=== PATIENT | male | born 1990 | race Caucasian/White ===

== ENCOUNTER 2018-04-05 12:26 | Emergency (ER) | payer OTHER, SELFPAY ==
[2018-04-05 12:28] VITALS: BP 143/87; PULSE 69; PULSE 74; RESP 15; RESP 18; TEMP 36.5; O2SAT 100; O2SAT 99; BMI 23.7
--- NOTE | 2018-04-05 12:36 | ED.RN ---
NO OLD EKG'S IN MUSE.
--- NOTE | 2018-04-05 12:38 | RAD_ITS ---
STUDY: X-RAY CHEST REASON FOR EXAM: Male, 28 years old. Single episode of sharp left-sided chest pain. TECHNIQUE: PA and lateral views of the chest. COMPARISON: Comparison is made with prior study dated January 22, 2004. FINDINGS: EKG electrodes are seen. The lungs are clear and expanded. Scattered calcified granulomas. There is no demonstrated pleural abnormality. Normal size heart. Normal mediastinum and sanjiv. Normal visualized pulmonary arteries. Normal visualized aortic arch and descending thoracic aorta. Normal visualized thoracic spine. Normal visualized ribs, clavicles, and shoulders. There is no demonstrated abnormality of the visualized soft tissue structures of the upper abdomen. RAD/Chest PA and Lateral IMPRESSION: Normal x-ray examination of the chest. Electronically Signed: Mike Montes De Oca MD at 13:31 EDT Tel [phone], Service support ,
--- NOTE | 2018-04-05 12:38 | EKG12_ITS ---
Test Reason : CP Blood Pressure : / mmHG Vent. Rate : 069 BPM Atrial Rate : 069 BPM P-R Int : 150 ms QRS Dur : 102 ms QT Int : 364 ms P-R-T Axes : 070 051 048 degrees QTc Int : 390 ms Normal sinus rhythm with sinus arrhythmia Incomplete right bundle branch block Borderline ECG Confirmed by ORLANDO SANDS, RADHA ([id number]), assistant production editor DWAYNE SANDERS ([id number]) on 04/12/2018 3:21:52 PM Referred By: SRINIVASAN
--- NOTE | 2018-04-05 12:51 | ED.DCSUM_ITS ---
- ER Visit Summary Date of Service: 04/05/18 Chief Complaint: Chest pain History of Present Illness: The patient is a 28 M who complains of left-sided chest pain. It started a couple of days ago but got worse yesterday. Is been continuous. It sharp in the left upper chest. Nothing makes it better or wor se. He denies dyspnea, nausea or vomiting. He denies any trauma. He has no DVT or PE risk factors. He has no cardiac risk factors. He takes no medications and is a non-smoker. He tried Tums without any relief. Physical Examination: Vital signs reviewed. HEENT exam unremarkable. Heart is regular rate and rhythm without murmurs. Lungs are clear to auscultation. His left upper chest is tender to palpation. Abdomen is soft and nontender. Extremities reveal no edema. Peripheral pulses are equal. Skin exam normal. Neurologic exam normal. Test Results: EKG is sinus rhythm with a rate of 69. No ST changes. Chest x- ray unremarkable Emergency Department Course and Treatment: Patient was given naproxen. I do not see any acute findings for his chest pain. It could be chest wall pain. He has no cardiac, DVT or PE risk factors. I do not feel he needs blood work for these. Will be treated with naproxen at home. He will follow-up with his primary care physician. Treatment Plan: [] Disposition: Discharge Impression: Chest wall pain This note was generated with [employer] dictation software. It may contain incorrect words, spelling, and punctuation that were not noted in review of the chart prior to signing ED Disposition - Plan for ED Patient: Chief Complaint: Chest Pain Referrals: NOT,DEFINED [NON-STAFF] -
--- NOTE | 2018-04-05 13:25 | ED.DEP ---
ED Disposition - Plan for ED Patient: Disposition: Home or Assisted Living Chief Complaint: Chest Pain Instructions: ED Chest Pain NonCardiac Prescriptions: Naproxen [Naprosyn] 500 mg PO BID PRN #20 tab Referrals: NOT,DEFINED [NON-STAFF] -
[2018-04-05] MEDS: Naproxen 500 MG Tablet PO (13:43)
[2018-04-05 13:48] VITALS: BP 131/94; PULSE 64; RESP 14; O2SAT 99
== END 2018-04-05 13:59 | disposition home or self-care (01) ==
PROVIDERS: Emergency Provider Emergency Medicine
DX: R07.89 Other chest pain (principal)
CPT/HCPCS: 71046; 93005; 99283; A4216

== ENCOUNTER 2022-06-12 17:23 | Emergency (ER) | payer OTHER, SELFPAY ==
[2022-06-12 17:24] VITALS: BP 141/103; PULSE 88; RESP 16; TEMP 36.3; O2SAT 98; BMI 27.9
--- NOTE | 2022-06-12 17:39 | CT_ITS ---
STUDY: CT BRAIN WITHOUT CONTRAST REASON FOR EXAM: Male, 32 years old. Technologist Notes Sudden onset of dizziness, hypertension. Headache Technologist Notes Sudden onset of dizziness, hypertension. TECHNIQUE: Transaxial CT imaging of the brain was performed without administration of intravenous contrast material. Individualized dose optimization techniques were used for this CT. COMPARISON: None FINDINGS: Normal calvarium. Normal soft tissues. Normal size ventricles and extra-axial spaces for the patient''s age. Normal white matter tracts of the cerebral hemispheres. Normal basal ganglia and thalami. Normal brainstem. Normal cerebellum. There is no intracranial hemorrhage. There are no findings of an acute ischemic infarction. There is sinus disease. ASPECTS 10 CT/Brain/Head without Contrast IMPRESSION: There are no acute intracranial findings. Electronically Signed: Leonard Cisneros MD at 18:19 EST ,
--- NOTE | 2022-06-12 17:39 | EKG12_ITS ---
Test Reason : CP Blood Pressure : / mmHG Vent. Rate : 085 BPM Atrial Rate : 085 BPM P-R Int : 164 ms QRS Dur : 102 ms QT Int : 348 ms P-R-T Axes : 050 -06 022 degrees QTc Int : 414 ms Normal sinus rhythm Incomplete right bundle branch block Minimal voltage criteria for LVH, may be normal variant ( R in aVL ) Borderline ECG Confirmed by CONNOR SANDS, FLORIAN ([id number]), script editor ASHLEY ZUNIGA ([id number]) on 06/17/2022 10:47:06 AM Referred By: Confirmed By:KAREEM RYAN MD
--- NOTE | 2022-06-12 17:41 | EDS_ITS ---
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 He states he worked out this morning and went running as he usually does not use the elliptical machine. He went out on a call, and began having headache. He had chest discomfort and tightness but it did not radiate to his back. He felt his heart was racing. He got checked out by the paramedics, and had elevated blood pressure of 172 systolic. He does not have a history of hypertension. He states his family history is positive for high blood pressure but no early coronary artery disease. No exacerbating or alleviating factors. No leg swelling. No nausea or vomiting. No diaphoresis. PFSH PFS Medical History no medical history Home Medications NK 06/12/22 [History Last Taken Unknown] Allergy/AdvReac Type Severity Reaction Status Date / Time No Known Allergies Allergy Verified 06/12/22 17:26 Surgical History no surgical history Social History Smoking Status: Never smoker ROS ROS ED ROS Narrative Constitutional: No fever, no chills. HEENT: No sore throat. No neck pain. No loss of vision. No rhinorrhea. Cardiovascular: Positive chest pain. Positive palpitations. No pedal edema. Respiratory: No cough, no shortness of breath. Abdominal: No abdominal pain. No nausea. No vomiting. Genitourinary: No dysuria. No hematuria. Musculoskeletal: No myalgias. No arthralgias. Neurologic: Positive headaches. No dizziness. No lightheadedness. Skin: No rash. No change in color. Psychiatric: No depression. No anxiety. EXAM Physical Exam Narrative Exam Narrative: Afebrile. Vital signs noted. HEENT: Normocephalic. Atraumatic. PERRL, EOMI. Neck soft and supple. No point tenderness or step off. Cardiovascular: Regular rate and rhythm. No murmurs, rubs, or gallops a ppreciated. Respiratory: No tachypnea. Lungs clear to auscultation bilaterally. Gastrointestinal: Abdomen soft, nontender, with normoactive bowel sounds. No rebound or guarding. Neurological: Awake. Alert. Oriented x3. Nonfocal, nonlateralizing. Skin: No rash. Normal color. No pallor. Musculoskeletal: No pedal edema. Full range of motion extremities. Const Vital Signs: 06/12/22 17:24 06/12/22 17:50 06/12/22 17:52 Temperature 97.3 F L Temperature Source Temporal Pulse Rate 88 81 Respiratory Rate 16 20 H Respiratory Effort Normal Non-Labored Blood Pressure 141/103 H 128/93 H Blood Pressure Mean 115 104 Pulse Ox 98 98 Oxygen Delivery Method Room Air Room Air 06/12/22 19:14 Temperature Temperature Source Pulse Rate 76 Respiratory Rate 14 Respiratory Effort Blood Pressure 135/102 H Blood Pressure Mean 113 Pulse Ox 98 Oxygen Delivery Method Room Air Heart Score History: Slightly/Non-Suspicious ECG: Normal Age: </= 45 years Risk Factors: No Risk Factors Score: 0 MDM MDM MDM Narrative Medical decision making narrative: Chest pain work-up was pursued. His blood pressure currently is 141/103. I will obtain a CT of the brain because of his headache and elevated blood pressure that was reported earlier today. CT of the brain shows no acute process. CBC is grossly normal with a normal white count of 7.3, hemoglobin slightly elevated at 16.6 with hematocrit 48.3. Normal platelet count of 273. D-dimer normal at 0.31. Electrolyte panel is grossly unremarkable. Initial high-sensitivity troponin is 11. Repeat 2 hours later is 8. I do feel that he has been ruled out for coronary artery disease/ACS by enzymes. He was describing more of a tightness in his chest and feeling of anxiety. His EKG was interpreted by myself which shows normal sinus rhythm at 85 bpm without ectopy or acute ST changes. No STEMI. Chest x-ray interpreted by myself shows no acute process. His blood pressure has come down to 135/102. He was told to keep a log of his blood pressures. 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 Regardless, at this point in time, he is feeling improved. I feel he can be discharged safely home with follow-up to her primary care provider. I stressed the importance of keeping an eye on his blood pressure and told him that he may need to be started on medications if hypertension is established with his primary care provider. Return instructions to the emergency department were reviewed. Disposition is discharged home in stable condition. Lab Data Attestation: I reviewed the patient's lab results. Labs: Laboratory Results - last 24 hr 06/12/22 06/12/22 06/12/22 17:50 17:50 17:50 WBC 7.3 RBC 5.39 Hgb 16.6 H Hct 48.3 MCV 89.6 MCH 30.8 MCHC 34.4 RDW Std Deviation 37.7 RDW Coeff of Barbara 11.7 Plt Count 273 MPV 9.8 Immature Gran % (Auto) 0.300 Neut % (Auto) 57.1 Lymph % (Auto) 35.3 [place] % (Auto) 5.8 Eos % (Auto) 0.7 Baso % (Auto) 0.8 Absolute Neuts (auto) 4.2 Absolute Lymphs (auto) 2.56 Nucleated RBC % 0 D-Dimer Quant (PE/DVT) 0.31 Sodium 139 Potassium 3.8 Chloride 104 Carbon Dioxide 29.0 Anion Gap 6 BUN 16 Creatinine 1.11 Estim Creat Clear Calc 98.65 Est GFR (MDRD) Af Amer 99 Est GFR (MDRD) Non-Af 81 BUN/Creatinine Ratio 14.4 Glucose 97 Calcium 9.4 Troponin I High Sens 11 06/12/22 19:55 WBC RBC Hgb Hct MCV MCH MCHC RDW Std Deviation RDW Coeff of Barbara Plt Count MPV Immature Gran % (Auto) Neut % (Auto) Lymph % (Auto) [place] % (Auto) Eos % (Auto) Baso % (Auto) Absolute Neuts (auto) Absolute Lymphs (auto) Nucleated RBC % D-Dimer Quant (PE/DVT) Sodium Potassium Chloride Carbon Dioxide Anion Gap BUN Creatinine Estim Creat Clear Calc Est GFR (MDRD) Af Amer Est GFR (MDRD) Non-Af BUN/Creatinine Ratio Glucose Calcium Troponin I High Sens 8 Radiography Diagnostic Testing: Clinical Impression(s) from Imaging Studies Brain CT 06/12/22 17:39 IMPRESSION: There are no acute intracranial findings. Electronically Signed: Leonard Cisneros MD at 18:19 EST , Chest X-Ray 06/12/22 18:04 IMPRESSION: There are no acute findings. Electronically Signed: Leonard Cisneros MD at 18:20 EST , Discharge Plan Triage Chief Complaint: Chest Pain ED Provider: Rex Ceballos Dx/Rx/DC Orders Clinical Impression: Blood pressure elevated without history of HTN, Chest tightness Instructions: ED Chest Pain, Uncertain Cause, ED Hypertension, To Be Confirmed Prescriptions: No Action NK Primary Care Provider: Care Physician,No Primary Referrals: Care Physician,No Primary [Primary Care Provider] - Activity Restrictions/Additional Instructions: Keep a log of your blood pressures. Follow-up with a primary care provider. Disposition Disposition: Home, Self Care
[2022-06-12 17:50] VITALS: BP 128/93; PULSE 81; RESP 20; O2SAT 98
[2022-06-12] MEDS: Aspirin 81 MG TAB.CHEW 324 MG PO (17:51)
[2022-06-12 18:03] LABS: Absolute Lymphocyte Count 2.56 X10^3/uL (0.83-4.51); Absolute Neutrophil Count 4.2 X10^3/uL (2.0-7.7); Basophil# 0.06 X10^3/uL; Basophil% 0.8 % (0-1); Eosinophil# 0.05 X10^3/uL; Eosinophils% 0.7 % (0-5); Hematocrit 48.3 % (40-54); Hemoglobin 16.6 g/dL (13.0-16.5); Lymphocyte # 2.56 X10^3/ul (0.83-4.51); Lymphocyte % 35.3 % (19-41); Mean Corp Hgb Conc 34.4 g/dL (32-36); Mean Corpuscular Hgb 30.8 pg (27.0-32.0); Mean Corpuscular Volume 89.6 fL (80-94); Mean Platelet Vol. 9.8 fl (6.2-12.0); Monocyte# 0.42 X10^3/uL; Monocyte% 5.8 % (0-10); NRBC Flagged by Analyzer 0 % (0-5); Neutrophil # 4.15 X10^3/uL (2.7-7.7); Neutrophil % 57.1 % (47-70); Platelet Count 273 K/mm3 (150-450); RBC Distribution Width CV 11.7 % (11.6-14.6); RBC Distribution Width SD 37.7 fl (35.1-43.9); Red Blood Count 5.39 M/mm3 (4.6-6.2); White Blood Count 7.3 K/mm3 (4.4-11.0)
--- NOTE | 2022-06-12 18:04 | RAD_ITS ---
STUDY: X-RAY CHEST REASON FOR EXAM: Male, 32 years old. chest pain Technologist Notes WORKING OUT THIS AM AND FELT FINE, WENT OUT ON A CALL FELT DIZZY, CHEST PAIN/TIGHTNESS, BP WAS HIGH PER SQUAD THAT WAS ON THE SEEN, FEELS SOB, HEADACHE, FEELS FORGETTFUL TECHNIQUE: XR Chest 1 View COMPARISON: 04.05.18 FINDINGS: Normal visualized aortic arch and descending thoracic aorta. Normal visualized thoracic spine. Normal visualized ribs, clavicles, and shoulders. There is no demonstrated pleural abnormality. Normal size heart. Normal mediastinum and sanjiv. Normal visualized pulmonary arteries. There is no demonstrated abnormality of the visualized soft tissue structures of the upper abdomen. RAD/Chest 1 View (Portable) IMPRESSION: There are no acute findings. Electronically Signed: Leonard Cisneros MD at 18:20 EST ,
[2022-06-12 18:17] LABS: D-Dimer Quantitative (DVT/PE) 0.31 FEU/ug/m (0.27-0.49)
[2022-06-12 18:26] LABS: Anion Gap 6 (5-15); BUN 16 mg/dL (7-18); BUN/Creat Ratio 14.4 RATIO (10-20); Calcium,Total 9.4 mg/dL (8.5-10.1); Chloride 104 mmol/L (98-107); Creatinine, Serum 1.11 mg/dL (0.70-1.30); EST Glomerular Filtration Rate 81 mL/min (>60); Est Glom Filt Rate - Afr Amer 99 mL/min (>60); Estimated Creatinine Clearance 98.65 ml/min; Glucose 97 mg/dL (74-106); Potassium 3.8 mmol/L (3.5-5.1); Sodium Level 139 mmol/L (136-145); Troponin-I HS (w/2H Reflex) 11 pg/mL (3.0-78.0)
--- NOTE | 2022-06-12 18:32 | CM.ED ---
Social Work Consult: No Primary Care Physician Referral source: Self referral due to above. This social work nurse met with patient in room. Introduced self and social work nurse role. Patient agreeable to speak with this social work nurse. This social work nurse broached topic of primary care physician. Patient confirms to not have a primary care physician. This social work nurse educating patient on value of having primary care physician, patient voiced understanding and agreeable to this social work nurse providing patient with list of in-network primary care physicians that are local to patient geographical region. Patient reports to have all other needs met in the community and denies concern on returning to the community. No further services requested or indicated. Isrrael CERON, YSABEL-S
[2022-06-12 19:14] VITALS: BP 135/102; PULSE 76; RESP 14; O2SAT 98
[2022-06-12 19:59] LABS: Reflex Troponin-HS? (from REC) Y
[2022-06-12 20:23] LABS: Troponin-I HS 8 pg/mL (3.0-78.0)
[2022-06-12 20:54] VITALS: BP 149/109; PULSE 80; RESP 19; O2SAT 98
== END 2022-06-12 21:00 | disposition home or self-care (01) ==
PROVIDERS: Emergency Provider Emergency Medicine; Visit Provider Emergency Medicine
DX: R07.9 Chest pain, unspecified (principal); R03.0 Elevated blood-pressure reading, without diagnosis of hypertension; F41.9 Anxiety disorder, unspecified; Z56.6 Other physical and mental strain related to work; R51.9 Headache, unspecified
CPT/HCPCS: 70450; 71045; 80048; 84484; 85025; 85379; 93005; 99285; J7030; A4216

== ENCOUNTER → 2022-08-04 | Outpatient (CLI) | payer OTHER, SELFPAY ==
--- NOTE | 2022-08-04 10:45 | ECHOD_ITS ---
Reason For Study: CHEST PAIN Procedure This was a 2D Doppler, Color Flow transthoracic echocardiogram. Exam performed in department. Left Ventricle Normal size and thickness. The left ventricular ejection fraction is 65 %. Right Ventricle Normal RV size. A moderator band is seen in the right ventricle. Normal systolic function. Atria The left and right atria are normal. Mitral Valve The mitral valve is structurally normal. No prolapse or stenosis seen. Tricuspid Valve Normal tricuspid valve. Aortic Valve Normal aortic valve. Pulmonic Valve The pulmonic valve is not well visualized. Great Vessels Normal sized aortic root. Pericardium/Pleural No pericardial effusion. MMode/2D Measurements & Calculations LVIDd: 4.4 cm IVSd: 1.1 cm Ao root diam: 3.1 cm LVIDs: 3.3 cm LVPWd: 1.0 cm RVDd: 3.8 cm FS: 25.5 % LAV(MOD-sp4): 26.6 ml LVAd ap4: 29.1 cm2 SV(MOD-sp4): 57.9 ml LVLd ap4: 7.7 cm EDV(MOD-sp4): 90.1 ml EDV(sp4-el): 94.1 ml LVAs ap4: 15.1 cm2 LVLs ap4: 6.1 cm ESV(MOD-sp4): 32.2 ml ESV(sp4-el): 32.1 ml EF(MOD-sp4): 64.3 % EF(sp4-el): 65.9 % SV(sp4-el): 62.0 ml LA A4 area: 12.0 cm2 LA dimension(2D): 3.3 cm RA A4 area: 15.2 cm2 Time Measurements MV dec time: 0.19 sec Doppler Measurements & Calculations MV E max guevara: 63.1 cm/sec Lat Peak E' Guevara: 16.0 cm/sec Med Peak E' Guevara: 8.8 cm/sec MV A max guevara: 63.1 cm/sec E/E' lat: 4.0 E/E' med: 7.2 MV E/A: 1.00 MV V2 max: 76.1 cm/sec Ao V2 max: 100.6 cm/sec MV max P.3 mmHg MV dec slope: 333.9 cm/sec2 Ao max P.1 mmHg MV V2 mean: 44.0 cm/sec Ao V2 mean: 69.0 cm/sec MV mean P.88 mmHg Ao mean P.2 mmHg MV V2 VTI: 26.1 cm Ao V2 VTI: 22.5 cm AV (velocity ratio): 0.83 LV V1 max: 88.8 cm/sec PA V2 max: 102.6 cm/sec LV V1 max P.2 mmHg PA V2 mean: 65.9 cm/sec LV V1 mean P.8 mmHg LV V1 mean: 61.9 cm/sec LV V1 VTI: 18.7 cm ECHO/Echo Complete Interpretation Summary The left ventricular ejection fraction is 65 %. Prominent moderator band in RV vs non-compaction. Recommend cardiac MR for furt her evaluation.. Ordering Physician: José Miguel Serrano Referring Physician: ALFRED ISABEL Performed By: Selina Stephens RCS
--- NOTE | 2022-08-06 15:41 | STRESSREP ---
Stress Test Report Date: 08/04/2022 Procedure: Exercise tolerance test Indications: Chest pain Consent: Per the patient Procedure: The patient exercised on a Jose protocol for 12 minutes and 30 seconds achieving a peak heart rate of 176 bpm (93% predicted maximal heart rate) with a peak blood pressure 190/98 mmHg and a peak MET capacity of approximately 15.3 MET's. The baseline ECG demonstrated normal sinus rhythm. The peak exercise ECG demonstrated no ischemic changes. There were no cardiac dysrhythmias pretest, during exercise, or recovery. The functional capacity was considered good. The patient had no complaints of chest discomfort during exercise or recovery. The examination was discontinued secondary to target heart rate being achieved. Impression: 1. Technically adequate (percent predicted maximal heart rate greater than 85%) exercise tolerance test 2. Peak exercise ECG with no ischemic changes. 3. There were no cardiac dysrhythmias during exercise or recovery This note was generated with [employer] software. It may contain incorrect words, spelling, and punctuation that were not noted in checking the note before signing.
== END | disposition home or self-care (01) ==
LOC: CVS 10:43
PROVIDERS: PCP Nurse Practitioner Family; Visit Provider Internal Medicine Cardiovascular Disease
DX: R07.9 Chest pain, unspecified (principal)
CPT/HCPCS: 93017; 93306

== ENCOUNTER 2023-07-04 10:07 | Emergency (ER) | payer OTHER, SELFPAY ==
[2023-07-04 10:08] VITALS: BP 153/120; PULSE 99; RESP 18; TEMP 36.6; O2SAT 98; BMI 27.8
--- NOTE | 2023-07-04 10:35 | EX.ED.DYSGE1 ---
HPI History of Present Illness Chief Complaint: Hypertension Informant: patient Narrative Narrative: Patient presents ED near syncopal episodes with mild chest tightness this morning prior to going to the gym. He checked his blood pressure 150s over 120s. He has had on and off symptoms over the past year he has been to multiple video production specialist, diagnosed with right ventricular noncompaction cardiomyopathy. He is on a beta-randa twice a day took it this morning. Denies recent cough. Denies vomiting diarrhea. No family history of sudden heart , father with coronary disease stating due to poor dietary habits. 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 Home Medications carvedilol 3.125 mg tablet 3.125 mg PO BID #180 tabs 03/24/23 [Rx Last Taken Unknown] Allergy/AdvReac Type Severity Reaction Status Date / Time No Known Allergies Allergy Verified 07/04/23 10:07 Family History Father Diabetes Hypertension Grandfather Diabetes Grandmother Hypertension Social History Smoking Status: Never smoker alcohol intake: current alcohol intake frequency: 0-2 drinks per day Alcohol type: beer substance use type: does not use caffeine: No EXAM Physical Exam Const Vital Signs: 07/04/23 10:08 07/04/23 12:00 Temperature 97.8 F Temperature Source Temporal Pulse Rate 99 79 Respiratory Rate 18 18 Blood Pressure 153/120 H 138/98 H Blood Pressure Mean 131 110 Pulse Ox 98 99 Oxygen Delivery Method Room Air Positive well nourished and well developed General Appearance ED: well developed and NAD HEENT Reports moist mucous membranes normocephalic and atraumatic Eyes PERRL, EOMs intact bilaterally and conjunctivae normal General Eye ED: Yes normal appearance of both eyes Neck no lymphadenopathy and supple General: Negative for tenderness Chest Wall Chest: Negative for tenderness Resp normal respiratory effort and normal air movement Effort and Inspection: symmetric chest movement; Negative for respiratory distress Cardio regular rate, regular rhythm and no murmurs Peripheral Pulses: pulses 2+ throughout GI normal to inspection, nondistended, normoactive bowel sounds and non-tender Palpation: Negative for guarding or rebound tenderness present Back/Spine no CVA tenderness and no thoracic nor lumbar tenderness Extremity normal to inspection General Extremety ED: Negative for edema or tenderness General Extremity: Negative for edema Neuro oriented x3 and no sensory deficits noted Sensorium / Orientation: awake and alert Skin no rashes or lesions noted and no wounds MDM MDM MDM Narrative Medical decision making narrative: Interventions / MDM: Differential diagnosis: Elevated blood pressure, atypical chest pain Diagnosis considered but do not suspect: ACS however EKG troponins are negative. My EKG interpretation: Sinus rate of 86, no ST changes, T wave inversion lead III nonspecific. Imaging independently reviewed and interpreted by myself: 2 view chest x-ray: No acute process. External documents reviewed: N/A Test considered but not ordered:N/A ED course: Patient chest tightness blood pressure elevated 153/120 on arrival. 140s over 110 during my evaluation. EKG nonspecific findings. Cardiac workup initiated, will monitor his blood pressure. 1225: Initial cardiac enzymes negative. Remains symptom-free. Blood pressure 138/98 in the room. 1325: Repeat troponin negative. Remains symptom-free. Blood pressure 141/101 on recheck. Patient will keep a log of his blood pressure In the morning at night.confirm he is on Coreg 3.125 mg twice daily. He states medications per his cardiology team. He will call them for discussion for adjustments of medications. He is reassured. All questions were answered. Re-evaluation: stable Disposition discussed with patient/family/significant other: Patient Case discussed with consulting clinician: N/A This note was generated with [employer] dictation software. It may contain incorrect words, spelling, and punctuation that were not noted in checking the note before signing. Lab Data Attestation: I reviewed the patient's lab results. Labs: Laboratory Results - last 24 hr 07/04/23 07/04/23 10:20 12:54 WBC 5.8 RBC 5.74 Hgb 18.2 H* Hct 51.5 MCV 89.7 MCH 31.7 MCHC 35.3 RDW Std Deviation 38.2 RDW Coeff of Barbara 11.8 Plt Count 282 MPV 10.0 Immature Gran % (Auto) 0.300 Neut % (Auto) 57.9 Lymph % (Auto) 32.8 [place] % (Auto) 7.4 Eos % (Auto) 0.9 Baso % (Auto) 0.7 Absolute Neuts (auto) 3.4 Absolute Lymphs (auto) 1.90 Nucleated RBC % 0 [address] Review May foll Sodium 140 Potassium 3.5 Chloride 105 Carbon Dioxide 29.0 Anion Gap 6 BUN 10 Creatinine 1.16 Estim Creat Clear Calc 90.58 Est GFR (MDRD) Af Amer 93 Est GFR (MDRD) Non-Af 77 BUN/Creatinine Ratio 8.6 L Glucose 110 H Calcium 9.1 Troponin I High Sens 9 6 Radiography Diagnostic Testing: Clinical Impression(s) from Imaging Studies Chest X-Ray 07/04/23 10:50 IMPRESSION: No acute thoracic pathology. Electronically Signed: Hoang Whatley MD at 11:05 EST , Discharge Plan Triage Chief Complaint: Hypertension ED Provider: Dino Doshi Dx/Rx/DC Orders Clinical Impression: Chest pain, Right ventricular myocardial noncompaction cardiomyopathy, Elevated blood pressure reading with diagnosis of hypertension Instructions: Blood Pressure Check Steps, ED Chest Pain, Uncertain Cause Prescriptions: No Action carvedilol 3.125 mg tablet 3.125 mg PO BID Qty: 180 2RF Rx Instructions: must administer with a meal/food Primary Care Provider: Angely Estrada NP Referrals: Angely Estrada NP, [employer] [Primary Care Provider] - 1 Week Activity Restrictions/Additional Instructions: Cardiac workup negative. Blood pressure 153/120 on arrival, prior to discharge 141/101. Continue your Coreg twice a day, keep a log of your blood pressure, discussed with your cardiology team for adjustments of your medications as needed. Disposition Disposition: Home, Self Care
--- NOTE | 2023-07-04 10:50 | RAD_ITS ---
STUDY: X-RAY CHEST REASON FOR EXAM: Male, 33 years old. Chest pain TECHNIQUE: Frontal and lateral views of the chest COMPARISON: 06/12/2022 FINDINGS: The lungs are clear. There are no pleural effusions. There is no pneumothorax. The heart is normal in size. The visualized osseous structures are within normal limits. RAD/Chest PA and Lateral IMPRESSION: No acute thoracic pathology. Electronically Signed: Hoang Whatley MD at 11:05 EST ,
[2023-07-04 10:53] LABS: Absolute Neutrophil Count 3.4 X10^3/uL (2.0-7.7); Basophil# 0.04 X10^3/uL; Basophil% 0.7 % (0-1); Eosinophil# 0.05 X10^3/uL; Eosinophils% 0.9 % (0-5); Hematocrit 51.5 % (40-54); Lymphocyte % 32.8 % (19-41); Mean Corp Hgb Conc 35.3 g/dL (32-36); Mean Corpuscular Hgb 31.7 pg (27.0-32.0); Mean Corpuscular Volume 89.7 fL (80-94); Monocyte# 0.43 X10^3/uL; Monocyte% 7.4 % (0-10); NRBC Flagged by Analyzer 0 % (0-5); Neutrophil # 3.36 X10^3/uL (2.7-7.7); Neutrophil % 57.9 % (47-70); Platelet Count 282 K/mm3 (150-450); RBC Distribution Width CV 11.8 % (11.6-14.6); RBC Distribution Width SD 38.2 fl (35.1-43.9); Red Blood Count 5.74 M/mm3 (4.6-6.2); White Blood Count 5.8 K/mm3 (4.4-11.0)
[2023-07-04 10:56] LABS: Hemoglobin 18.2 g/dL (13.0-16.5)
[2023-07-04 11:03] LABS: Anion Gap 6 (5-15); BUN 10 mg/dL (7-18); BUN/Creat Ratio 8.6 RATIO (10-20); Calcium,Total 9.1 mg/dL (8.5-10.1); Chloride 105 mmol/L (98-107); Creatinine, Serum 1.16 mg/dL (0.70-1.30); EST Glomerular Filtration Rate 77 mL/min (>60); Est Glom Filt Rate - Afr Amer 93 mL/min (>60); Estimated Creatinine Clearance 90.58 ml/min; Glucose 110 mg/dL (74-106); Potassium 3.5 mmol/L (3.5-5.1); Sodium Level 140 mmol/L (136-145); Troponin-I HS (w/2H Reflex) 9 pg/mL (3.0-78.0)
--- OUTSIDE RECORDS SUMMARY | 2023-07-04 11:07 | XMS RPT_ITS | CCD ---
Author Name Unknown Address [id number] [place] [address] Organization [facility] Care Team Providers Care Harnessmaker Apprentice Name Role Phone SHERRY HATCH Unavailable Unavailable SHERRY HATCH Unavailable Unavailable SHERRY HATCH Unavailable Unavailable Trill BONDERIZER OPERATOR.Alfred IBANEZ Primary Care Provider Trill BONDERIZER OPERATOR.Alfred IBANEZ Primary Care Provider Unavailable Primary Care Provider UnavailANIAT Faustin Attending Unavailable TRILL, ALFRED C Primary Care Unavailable TRILL, ALFRED C Attending Unavailable TRILL, ALFRED C Primary Care Unavailable JOSÉ MIGUEL MENEZES Referring Unavailable MAYCOL PETTY Referring Unavailable TRILL, ALFRED C Primary Care Unavailable TRILL, ALFRED C Attending Unavailable TRILL, ALFRED C Primary Care Unavailable TRILL, ALFRED C Referring Unavailable TRILL, ALFRED C Primary Care Unavailable TRILL, ALFRED C Referring Unavailable TRILL, ALFRED C Primary Care Unavailable TRILL, ALFRED C Referring Unavailable TRILL, ALFRED C Attending Unavailable TRILL, ALFRED C Primary Care Unavailable TRILL, ALFRED C Primary Care Unavailable TRILL, ALFRED C Attending Unavailable TRILL, ALFRED C Primary Care Unavailable TRILL, ALFRED C Referring Unavailable MAAME, ALFRED C Primary Care Unavailable MAYCOL PETTY Referring Unavailable MAAME, ALFRED C Primary Care Unavailable MAYCOL PETTY Attending Unavailable Medications Current Medications Medication Drug Class(es) Dates Sig (Normalized) Sig (Original) carbamide peroxide 65 mg/ml otic solution (1 source) Start: 10-06-2016 End: 03-18-2022 carbamide peroxide (DEBROX) 6.5 % otic solution Indications: Impacted cerumen of left ear Use 5 Drops in both ears twice daily. 1 Bottle 0 10/06/2016 03/18/2022 Discontinued (Patient chooses alternative therapy) Completed/Discontinued Medications Medication Drug Class(es) Dates Sig (Normalized) Sig (Original) bacitracin 0.5 unt/mg topical ointment (2 sources) Start: 03-03-2023 End: 03-03-2023 bacitracin ointment busPIRone hydrochloride 5 mg oral tablet (14 sources) Start: 06-19-2022 End: 12-16-2022 take 1 tablet by mouth three times daily busPIRone (BUSPAR) 5 mg tablet Indications: RADHA (generalized anxiety disorder) TAKE 1 TABLET BY MOUTH THREE TIMES A DAY 90 tablet 5 07/15/2022 Active Problems Active Problems Problem Classification Problem Date Documented Date Episodic/Chronic Anxiety disorders (19 sources) Generalized anxiety disorder; Translations: [Generalized anxiety disorder] Onset: 06-20-2022 Chronic Disorders of lipid metabolism (15 sources) Mixed hyperlipidemia; Translations: [Mixed hyperlipidemia] Onset: 07-22-2022 Chronic Essential hypertension (12 sources) Essential hypertension; Translations: [Essential (primary) hypertension] Onset: 06-20-2022 Chronic Headache; including migraine (1 source) Headache; Translations: [Headache, unspecified headache type] Episodic Headache; including migraine (1 source) Headache; including migraine; Translations: [Headache, unspecified headache type] Onset: 06-18-2022 Joint disorders and dislocations; trauma-related (16 sources) Chondromalacia of left patella; Translations: [Chondromalacia patellae, left knee] Onset: 07-30-2021 07-30-2021 Chronic Nutritional deficiencies (2 sources) Vitamin D deficiency; Translations: [Vitamin D deficiency, unspecified] Onset: 04-09-2023 04-09-2023 Chronic Open wounds of extremities (8 sources) Laceration of finger; Translations: [Laceration without foreign body of unspecified finger without damage to nail, initial encounter] Onset: 03-03-2023 03-03-2023 Episodic Other and ill-defined heart disease (1 source) Dysfunction of right cardiac ventricle; Translations: [Heart disease, unspecified] 04-09-2023 Chronic Other and ill-defined heart disease (1 source) Right ventricular systolic dysfunction; Translations: [Other ill-defined heart diseases] 04-10-2023 Chronic Other and ill-defined heart disease (2 sources) Heart disease, unspecified; Translations: [Right ventricular dysfunction] Onset: 04-09-2023 Chronic Jo-; endo-; and myocarditis; cardiomyopathy (except that caused by tuberculosis or sexually transmitted disease) (7 sources) Right ventricular myocardial noncompaction cardiomyopathy; Translations: [Cardiomyopathy in diseases classified elsewhere] Onset: 03-24-2023 03-24-2023 Chronic Residual codes; unclassified (1 source) Obstructive sleep apnea syndrome; Translations: [Obstructive sleep apnea (adult) (pediatric)] 04-09-2023 Chronic Residual codes; unclassified (1 source) Obstructive sleep apnea (adult) (pediatric); Translations: [FAN (obstructive sleep apnea)] Onset: 04-28-2023 Chronic Unclassified (1 source) cp and cardiomyopathy Onset: 02-26-2023 Viral infection (19 sources) Genital herpes simplex; Translations: [Herpesviral infection of urogenital system, unspecified] Onset: 12-26-2010 Chronic Past or Other Problems Problem Classification Problem Date Documented Da te Episodic/Chronic Administrative/social admission (2 sources) Encounter for pre-employment examination; Translations: [Encounter for pre-employment examination] Onset: 04-30-2016 Episodic Blindness and vision defects (20 sources) Myopia; Translations: [Myopia, unspecified eye] Onset: 03-18-2022 03-18-2022 Episodic Other circulatory disease (8 sources) Elevated blood-pressure reading without diagnosis of hypertension; Translations: [Elevated blood-pressure reading, without diagnosis of hypertension] Onset: 01-19-2023 01-19-2023 Episodic Other circulatory disease (1 source) Elevated blood-pressure reading, without diagnosis of hypertension; Translations: [Elevated blood pressure reading without diagnosis of hypertension] Onset: 01-20-2023 Episodic Results Test Name Value Interpretation Reference Range Facil ity Vital Signs Date Time Vital Sign Value Performing Clinician Chris gilbert 04-09-2023 07:55-0400 Diastolic blood pressure 93 mm[Hg] Maycol Petty DO Work Phone: [facility] 04-09-2023 07:55-0400 Heart rate 70 /min Maycol Petty DO Work Phone: [facility] 04-09-2023 07:55-0400 SaO2% (BldA) [Mass fraction] 99 % Maycol Petty DO Work Phone: [facility] 04-09-2023 07:55-0400 Systolic blood pressure 134 mm[Hg] Maycol Petty DO Work Phone: [facility] 04-09-2023 07:53-0400 Body height 175.3 cm Maycol Petty DO Work Phone: [facility] 04-09-2023 07:53-0400 Body weight 86.64 kg Maycol Petty DO Work Phone: [facility] 03-24-2023 10:00-0400 Diastolic blood pressure 84 mm[Hg] Alfred Estrada BONDERIZER OPERATOR.SURFACE SUPERVISOR Work Phone: [facility] 03-24-2023 10:00-0400 Systolic blood pressure 110 mm[Hg] Alfred Estrada BONDERIZER OPERATOR.SURFACE SUPERVISOR Work Phone: [facility] 03-24-2023 09:29-0400 Body height 177.2 cm Alfred Estrada BONDERIZER OPERATOR.SURFACE SUPERVISOR Work Phone: [facility] 03-24-2023 09:29-0400 Body temperature 97.81 [degF] Alfred Estrada BONDERIZER OPERATOR.SURFACE SUPERVISOR Work Phone: [facility] 03-24-2023 09:29-0400 Body weight 84.82 kg Alfred Trirusty BONDERIZER OPERATOR.SURFACE SUPERVISOR Work Phone: [facility] 03-24-2023 09:29-0400 Heart rate 72 /min Alfred Estrada BONDERIZER OPERATOR.SURFACE SUPERVISOR Work Phone: [facility] 03-24-2023 09:29-0400 SaO2% (BldA) [Mass fraction] 96 % Alfred Estrada BONDERIZER OPERATOR.SURFACE SUPERVISOR Work Phone: [facility] 03-03-2023 03:22-0400 Diastolic blood pressure 92 mm[Hg] Anita Hutson MD Work Phone: [facility] 03-03-2023 03:22-0400 Heart rate 87 /min Anita Hutson MD Work Phone: [facility] [employer] 03-03-2023 03:22-0400 Respiratory rate 16 /min Anita Hutson MD Work Phone: [facility] [employer] 03-03-2023 03:22-0400 SaO2% (BldA) [Mass fraction] 99 % Anita Hutson MD Work Phone: [facility] [employer] 03-03-2023 03:22-0400 Systolic blood pressure 140 mm[Hg] Anita Hutson MD Work Phone: [facility] [employer] 03-02-2023 23:30-0400 Body height 175.3 cm Anita Hutson MD Work Phone: [facility] [employer] 03-02-2023 23:30-0400 Body mass index (BMI) [Ratio] 28.06 kg/m2 Anita Hutson MD Work Phone: [facility] [employer] 03-02-2023 23:30-0400 Body temperature 98.2 [degF] Anita Hutson MD Work Phone: [facility] [employer] 03-02-2023 23:30-0400 Body weight 86.18 kg Anita Hutson MD Work Phone: [facility] 01-13-2023 12:55-0400 Body height 177.2 cm Alfred Estrada APRN.SURFACE SUPERVISOR Work Phone: [facility] 01-13-2023 12:55-0400 Body temperature 98.2 [degF] Alfred Trill BONDERIZER OPERATOR.SURFACE SUPERVISOR Work Phone: [facility] 01-13-2023 12:55-0400 Body weight 86.64 kg Alfred Trirusty BONDERIZER OPERATOR.SURFACE SUPERVISOR Work Phone: [facility] 01-13-2023 12:55-0400 Diastolic blood pressure 90 mm[Hg] Alfred Estrada BONDERIZER OPERATOR.SURFACE SUPERVISOR Work Phone: [facility] 01-13-2023 12:55-0400 Heart rate 72 /min Alfred Trill BONDERIZER OPERATOR.SURFACE SUPERVISOR Work Phone: [facility] 01-13-2023 12:55-0400 SaO2% (BldA) [Mass fraction] 96 % Alfred Trill BONDERIZER OPERATOR.SURFACE SUPERVISOR Work Phone: [facility] 01-13-2023 12:55-0400 Systolic blood pressure 118 mm[Hg] Alfred Trill BONDERIZER OPERATOR.SURFACE SUPERVISOR Work Phone: [facility] 07-16-2022 09:17-0500 Body height 177.2 cm Alfred Trill BONDERIZER OPERATOR.SURFACE SUPERVISOR Work Phone: [facility] 07-16-2022 09:17-0500 Body temperature 98.01 [degF] Alfred Trill BONDERIZER OPERATOR.SURFACE SUPERVISOR Work Phone: [facility] 07-16-2022 09:17-0500 Body weight 88.91 kg Alfred Trill BONDERIZER OPERATOR.SURFACE SUPERVISOR Work Phone: [facility] 07-16-2022 09:17-0500 Diastolic blood pressure 76 mm[Hg] Alfred Trill BONDERIZER OPERATOR.SURFACE SUPERVISOR Work Phone: [facility] 07-16-2022 09:17-0500 Heart rate 73 /min Alfred Trill BONDERIZER OPERATOR.SURFACE SUPERVISOR Work Phone: [facility] 07-16-2022 09:17-0500 SaO2% (BldA) [Mass fraction] 96 % Alfred Trill BONDERIZER OPERATOR.SURFACE SUPERVISOR Work Phone: [facility] 07-16-2022 09:17-0500 Systolic blood pressure 124 mm[Hg] Alfred Trill BONDERIZER OPERATOR.SURFACE SUPERVISOR Work Phone: [facility] 06-18-2022 14:56-0500 Diastolic blood pressure 92 mm[Hg] Alfred Trill BONDERIZER OPERATOR.SURFACE SUPERVISOR Work Phone: [facility] 06-18-2022 14:56-0500 Systolic blood pressure 128 mm[Hg] Alfred Trill BONDERIZER OPERATOR.SURFACE SUPERVISOR Work Phone: [facility] 06-18-2022 14:34-0500 Body height 177.2 cm Alfred Trill BONDERIZER OPERATOR.SURFACE SUPERVISOR Work Phone: [facility] 06-18-2022 14:34-0500 Body temperature 97.9 [degF] Alfred Trill BONDERIZER OPERATOR.SURFACE SUPERVISOR Work Phone: [facility] 06-18-2022 14:34-0500 Body weight 87.09 kg Alfred Trill BONDERIZER OPERATOR.SURFACE SUPERVISOR Work Phone: [facility] 06-18-2022 14:34-0500 Heart rate 87 /min Alfred Trill BONDERIZER OPERATOR.SURFACE SUPERVISOR Work Phone: [facility] 06-18-2022 14:34-0500 SaO2% (BldA) [Mass fraction] 97 % Alfred Trill BONDERIZER OPERATOR.SURFACE SUPERVISOR Work Phone: [facility] 03-18-2022 09:20-0400 Body height 177.2 cm Alfred Trill BONDERIZER OPERATOR.SURFACE SUPERVISOR Work Phone: [facility] 03-18-2022 09:20-0400 Body temperature 97.9 [degF] Alfred Trill BONDERIZER OPERATOR.SURFACE SUPERVISOR Work Phone: [facility] 03-18-2022 09:20-0400 Body weight 86.36 kg Alfred Trill BONDERIZER OPERATOR.SURFACE SUPERVISOR Work Phone: [facility] 03-18-2022 09:20-0400 Diastolic blood pressure 78 mm[Hg] Alfred Trill BONDERIZER OPERATOR.SURFACE SUPERVISOR Work Phone: [facility] 03-18-2022 09:20-0400 Heart rate 66 /min Alfred Trill BONDERIZER OPERATOR.SURFACE SUPERVISOR Work Phone: [facility] 03-18-2022 09:20-0400 Respiratory rate 16 /min Alfred Trill BONDERIZER OPERATOR.SURFACE SUPERVISOR Work Phone: [facility] 03-18-2022 09:20-0400 SaO2% (BldA) [Mass fraction] 99 % Alfred Estrada APRN.CNP Work Phone: [facility] 03-18-2022 09:20-0400 Systolic blood pressure 120 mm[Hg] Alfred Estrada APRN.CNP Work Phone: [facility] Encounters Encounter Date Encounter Type Care Provider Facility Start: 04-30-2023 Telephone encounter Maycol orantes DO Work Phone: Cardiology Procedures Date Procedure Procedure Detail Performing Clinician Start: 03-03-2023 Simple rpr scalp/neck/ax/genit/trunk 7.6-12.5cm Jose Jacques DO Work Phone: Start: 03-03-2023 End: 03-03-2023 Radex elbow complete minimum 3 views Jose Jacques DO Work Phone: Start: 03-18-2022 Adult depression screening assessment Alfred Estrada APRN.CNP Work Phone: Plan of Treatment Date Care Activity Detail Author Start: 02-17-2040 Zoster Vaccines (1 of 2) Zoste r Vaccines (1 of 2) [facility] Start: 03-03-2033 DTaP/Tdap/Td Vaccine s (9 - Td or Tdap) DTaP/Tdap/Td Vaccines (9 - Td or Tdap) [facility] Start: 03-03-2033 Urine microalbumin profile DTa P,Tdap,Td Vaccine (9 - Td or Tdap) [facility] Start: 10-16-2028 Urine microalbumin profile [facility] Start: 03-24-2024 Annual PCP Team Divorce Attorney mehnaz Disease Visit Annual PCP Team Chronic Disease Visit [facility] Start: 01-14-2024 ANNUAL PCP TEAM CONSTRUCTION PROJECT COORDINATOR MEHNAZ DISEASE VISIT ANNUAL PCP TEAM CHRONIC DISEASE VISIT [facility] Start: 01-14-2024 COVID-19 VACCINE (3 - Moderna series) COVID-19 VACCINE (3 - Moderna series) [facility] Immunizations Immunization Date Immunization Notes Care Provider Fa cility 03-03-2023 tetanus and diphther ia toxoids, adsorbed, preservative free, for adult use (5 Lf of tetanus toxoid and 2 Lf of diphtheria toxoid) Anita Hutson MD Work Phone: [facility] 06-02-2022 influenza, injectabl e, quadrivalent, preservative free Alfred Trill BONDERIZER OPERATOR.[facility] Work Phone: [facility] Work Phone: 06-02-2022 influenza virus vacc ine, unspecified formulation Anita Hutson MD Work Phone: [facility] 09-08-2021 Influenza, injectabl e, Madin Vee Canine Kidney, preservative free, quadrivalent Alfred Trill BONDERIZER OPERATOR.[facility] Work Phone: [facility] 02-23-2021 COVID-19 vaccine, fu ll dose (MODERNA) Alfred Trill BONDERIZER OPERATOR.SURFACE SUPERVISOR Work Phone: [facility] Work Phone: 01-17-2021 COVID-19 vaccine, fu ll dose (MODERNA) Alfred Trill BONDERIZER OPERATOR.[facility] Work Phone: [facility] Work Phone: 08-27-2020 influenza, seasonal, injectable Alfred Trill BONDERIZER OPERATOR.[facility] Work Phone: [facility] Work Phone: 08-24-2020 anthrax vaccine Alfred Tril l BONDERIZER OPERATOR.SURFACE SUPERVISOR Work Phone: [facility] Work Phone: 07-03-2020 measles, mumps and rubella virus vaccine Alfred Trill BONDERIZER OPERATOR.SURFACE SUPERVISOR Work Phone: [facility] Work Phone: 03-23-2020 anthrax vaccine Alfred Tril l BONDERIZER OPERATOR.SURFACE SUPERVISOR Work Phone: [facility] Work Phone: 03-23-2020 typhoid capsular polysaccharide vaccine Alfred Trill BONDERIZER OPERATOR.SURFACE SUPERVISOR Work Phone: [facility] Work Phone: 01-13-2020 anthrax vaccine Alfred Tril l BONDERIZER OPERATOR.SURFACE SUPERVISOR Work Phone: [facility] Work Phone: 05-07-2019 influenza, injectabl e, quadrivalent, preservative free Alfred Trill BONDERIZER OPERATOR.SURFACE SUPERVISOR Work Phone: [facility] Work Phone: 10-16-2018 tetanus and diphther ia toxoids, adsorbed, preservative free, for adult use (2 Lf of tetanus toxoid and 2 Lf of diphtheria toxoid) Alfred Trill BONDERIZER OPERATOR.[facility] Work Phone: [facility] Work Phone: 05-08-2018 influenza, injectabl e, quadrivalent, preservative free Alfred Trill BONDERIZER OPERATOR.[facility] Work Phone: [facility] Work Phone: 05-09-2017 influenza, injectabl e, quadrivalent, preservative free Alfred Trill BONDERIZER OPERATOR.[facility] Work Phone: [facility] Work Phone: 03-16-2016 influenza, seasonal, injectable, preservative free Alfred Trill BONDERIZER OPERATOR.[facility] Work Phone: [facility] Work Phone: 06-05-2015 influenza, seasonal, injectable Alfred Trill BONDERIZER OPERATOR.[facility] Work Phone: [facility] Work Phone: 05-03-2014 influenza, live, intranasal, quadrivalent Alfred Trill BONDERIZER OPERATOR.SURFACE SUPERVISOR Work Phone: [facility] Work Phone: 02-13-2014 typhoid capsular polysaccharide vaccine Alfred Trill BONDERIZER OPERATOR.[facility] Work Phone: [facility] Work Phone: 03-12-2013 influenza, seasonal, injectable Alfred Trill BONDERIZER OPERATOR.[facility] Work Phone: [facility] Work Phone: 03-20-2012 influenza, seasonal, injectable, preservative free Alfred Trill BONDERIZER OPERATOR.SURFACE SUPERVISOR Work Phone: [facility] Work Phone: 04-12-2011 influenza nasal, unspecified formulation Alfred Trill BONDERIZER OPERATOR.SURFACE SUPERVISOR Work Phone: [facility] Work Phone: 09-15-2009 novel influenza-H1N1 -09, injectable Alfred Trill BONDERIZER OPERATOR.SURFACE SUPERVISOR Work Phone: [facility] Work Phone: 04-19-2009 influenza virus vacc ine, live, attenuated, for intranasal use Alfred Trill BONDERIZER OPERATOR.[facility] Work Phone: [facility] Work Phone: 02-12-2009 hepatitis A vaccine, pediatric/adolescent dosage, 2 dose schedule Alfred Trill BONDERIZER OPERATOR.SURFACE SUPERVISOR Work Phone: [facility] Work Phone: 02-12-2009 hepatitis B vaccine, pediatric or pediatric/adolescent dosage Alfred Trill BONDERIZER OPERATOR.SURFACE SUPERVISOR Work Phone: [facility] Work Phone: 05-20-2008 anthrax vaccine Alfred Tril l BONDERIZER OPERATOR.SURFACE SUPERVISOR Work Phone: [facility] Work Phone: 05-20-2008 hepatitis B vaccine, adult dosage Alfred Trill BONDERIZER OPERATOR.SURFACE SUPERVISOR Work Phone: [facility] Work Phone: 05-20-2008 influenza virus vacc ine, live, attenuated, for intranasal use Alfred Trill BONDERIZER OPERATOR.SURFACE SUPERVISOR Work Phone: [facility] Work Phone: 05-20-2008 typhoid capsular polysaccharide vaccine Alfred Trill BONDERIZER OPERATOR.SURFACE SUPERVISOR Work Phone: [facility] Work Phone: 12-20-2007 hepatitis A vaccine, pediatric/adolescent dosage, 2 dose schedule Alfred Trill BONDERIZER OPERATOR.SURFACE SUPERVISOR Work Phone: [facility] Work Phone: 12-20-2007 hepatitis B vaccine, pediatric or pediatric/adolescent dosage Alfred Trill BONDERIZER OPERATOR.[facility] Work Phone: [facility] Work Phone: 12-20-2007 meningococcal polysaccharide (groups A, C, Y and W-135) diphtheria toxoid conjugate vaccine (MCV4P) Alfred Trill BONDERIZER OPERATOR.[facility] Work Phone: [facility] Work Phone: 12-20-2007 poliovirus vaccine, inactivated Alfred Trill BONDERIZER OPERATOR.[facility] Work Phone: [facility] Work Phone: 12-20-2007 tetanus toxoid, redu [place] diphtheria toxoid, and acellular pertussis vaccine, adsorbed Alfred Trill BONDERIZER OPERATOR.[facility] Work Phone: [facility] Work Phone: 03-17-2003 measles, mumps and rubella virus vaccine Alfred Trill BONDERIZER OPERATOR.[facility] Work Phone: [facility] Work Phone: 02-25-2003 diphtheria and tetan us toxoids, adsorbed for pediatric use Alfred Trill BONDERIZER OPERATOR.SURFACE SUPERVISOR Work Phone: [facility] Work Phone: 10-29-1991 diphtheria, tetanus toxoids and acellular pertussis vaccine Alfred Trill BONDERIZER OPERATOR.SURFACE SUPERVISOR Work Phone: [facility] Work Phone: 10-27-1991 trivalent poliovirus vaccine, live, oral Alfred Trill BONDERIZER OPERATOR.SURFACE SUPERVISOR Work Phone: [facility] Work Phone: 07-14-1991 haemophilus influenz ae type b vaccine, HbOC conjugate Alfred Trill BONDERIZER OPERATOR.SURFACE SUPERVISOR Work Phone: [facility] Work Phone: 07-14-1991 measles, mumps and rubella virus vaccine Alfred Trill BONDERIZER OPERATOR.SURFACE SUPERVISOR Work Phone: [facility] Work Phone: 01-27-1991 haemophilus influenz ae type b vaccine, HbOC conjugate Alfred Trill BONDERIZER OPERATOR.SURFACE SUPERVISOR Work Phone: [facility] Work Phone: 1990 diphtheria, tetanus toxoids and acellular pertussis vaccine Alfred Trill BONDERIZER OPERATOR.[facility] Work Phone: [facility] Work Phone: 1990 haemophilus influenz ae type b vaccine, HbOC conjugate Alfred Trill BONDERIZER OPERATOR.[facility] Work Phone: [facility] Work Phone: 1990 diphtheria, tetanus toxoids and acellular pertussis vaccine Alfred Trill BONDERIZER OPERATOR.[facility] Work Phone: [facility] Work Phone: 1990 haemophilus influenz ae type b vaccine, HbOC conjugate Alfred Trill BONDERIZER OPERATOR.[facility] Work Phone: [facility] Work Phone: 1990 trivalent poliovirus vaccine, live, oral Alfred Trill BONDERIZER OPERATOR.[facility] Work Phone: [facility] Work Phone: 1990 diphtheria, tetanus toxoids and acellular pertussis vaccine Alfred Trill BONDERIZER OPERATOR.[facility] Work Phone: [facility] Work Phone: 1990 trivalent poliovirus vaccine, live, oral Alfred Trill BONDERIZER OPERATOR.[facility] Work Phone: [facility] Work Phone: Payers Date Payer Category Payer Unknown [id number] 2021 Unknown [id number] Social History Date Type Detail Facility Start: 03-18-2022 Tobacco smoking status NHIS Never sm oked tobacco [facility] Start: 03-18-2022 Tobacco use and exposure Smoke less tobacco non-user [facility] Start: 03-18-2022 End: 04-09-2023 Alcohol intake Current drinker of alcohol (finding) [facility] Start: 03-18-2022 End: 01-13-2023 Alcohol intake [facility] Start: 03-03-2020 History SDOH Alcohol Frequency 2 [facility] Start: 03-03-2020 History SDOH Alcohol Std Drinks 1 [facility] Start: 03-18-2022 History SDOH Alcohol Comment rarely [facility] Start: 03-18-2022 Tobacco Comment [facility] smokes [facility] Start: 1990 Sex Assigned At Not on file C [facility] Start: 03-08-2022 End: 03-03-2023 Exposure to SARS-CoV-2 (event) Not sure [facility] Start: 03-03-2020 End: 01-13-2023 Alcohol Use Disorder Identification Test - Consumption [AUDIT-C] [facility] How often to you hav e a drink containing alcohol? Monthly or less [facility] How many standard dr inks containing alcohol do you have on a typical day? 1 or 2 [facility] How often do you hav e 6 or more drinks on 1 occasion? Less than monthly [facility] Adult Depression Scr eening Assessment 0 [facility] Tobacco smoking status [place] account executive smoking consumption unknown [facility] Start: 1990 Sex Assigned At Male S [facility] Start: 03-02-2023 Gender identity Identifies as male gender (finding) [facility] Clinical Notes 03-18-2022 to 04-30-2023 Telephone Encounter - Miryam Lara - 04/30/2023 11:31 AM EDTPatient Maycol Thomas DO - 04/08/2023 7:34 AM EDTTelephone Encounter - Francisco Antonio - 04/02/2023 3:07 PM EDT Note Date & Type Note Facility 04-30-2023 Miscellaneous Notes April 30, 2023 Name: Aly Bashir Patient Contact Number: [phone] (home) [phone] (cell) Date of last office visit: 04/09/2023 Reason For Call: [email or web address] called to inform Maycol Petty that Mr. Bashir was dined for his zio patch that was requested on 04-27-23. Please call [phone] if you would like to do a peer to peer. Or fax dispute to [phone]. Physician: Maycol Petty DO Patient was informed that non-urgent calls may be returned within the next three business days. Yes Miryam Lara documented in this encounter [facility] 04-27-2023 Note HNO ID: [id number] Author: Krishna Maldonado DO Service: ? Author Type: Physician Type: Progress Notes Filed: 04/29/2023 3:39 AM Note Text: Sleep Study Check-In Documentation Date: April 29, 2023 Name: Aly Bashir Patient was accompanied by Self. Location: [facility] Latex allergy: No Tape allergy: No Current medications were reviewed with the patient:Yes Sleep aid taken by patient for the sleep study: [place] of sleep aid: Not Applicable Procedure was explained to the patient and all questions were answered. PAP treatment discussed and shown to patient: Yes Knowledge Program (KP): KP was not completed in epic by patient and accepted Study type: Polysomnogram Adverse Event: No (If yes create a new abstract) Comments: Patient was advised to follow up with their ordering provider regarding test results Idania LIPSCOMB April 27, 2023 An order has been received for Polysomnogram (PSG) from Maycol Mak DO, A. Sleep Center Staff/Dry Cell Battery Assembler Staff Orders. Visit prep complete - Please refer to the sleep study order (under procedures tab) for protocol details and special instructions. The sleep study is scheduled for 05/03/2023. Insurance: [facility] / Plan: [place] [employer] INSURED / Product Type: PPO / Payer/Plan Subscr Sex Relation Sub. Ins. ID Effective Group Num 1. DM[employer]YAC[employer] - S* ALY BASHIR 1990 Male Self [id number] 07[birth year]21 [id number] [id number] April 27, 2023 Standing PSG Orders signed in the last 90 days None Future PSG Orders signed in the last 90 days Ordered Auth. provider POLYSOMNOGRAM (PSG) [[id number]] 04/09/23 Maycol Petty DO Assoc. diagnoses: Right ventricular dysfunction [I51.9], FAN (obstructive sleep apnea) [G47.33] Q: Indications - Select All That Apply: A: Obstructive sleep apnea Q: STOP-BANG conditions - Select All That Apply: A: GENDER = male A2: high blood PRESSURE Q: Comorbidities: A: Moderate/Severe Cardiac disease Q: Specify Cardiac Disease: A: Other: see comments Q: Is the patient non-ambulatory or will they be accompanied by a caregiver?: A: No Q: Current use of supplemental oxygen during sleep period?: A: No Q: Add supplemental oxygen if needed per sleep lab policy?: A: Yes Q: Is this a repeat Sleep Study?: A: No All Prior Sleep Studies (past 365 days) Some values may be hidden. Unless noted otherwise, only the newest values recorded on each date are displayed. Sleep Studies POLYSOMNOGRAM (PSG) Future Expected: Expires: 04/08/24 BMI Readings from Last 2 Encounters: 04/09/23 : 28.21 kg/m? 03/24/23 : 27.02 kg/m? 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 Indications for study: Moderate/Severe Cardiac disease Sleep study to be performed: Polysomnogram Special instructions: Target REM/supine sleep Add EtCO2 or Transcutaneous CO2 if available *HTN, 04/09/2023 Notes I rush like for you to have a sleep study to make sure you don't have sleep apnea which can lead to right heart issues. Braulio Cesar - Sleep Medicine Staff Note: I have read the above protocol, edited as needed, and agree to the plan. Krishna Maldonado DO 2:30 PM, 04/27/2023 Braulio Cesar [facility] 04-09-2023 Instructions Maycol Petty DO - 04/09/2023 9:21 AM EDT You may have something called isolated right ventricular noncompaction - I will verify and review your cardiac MRI with our cardiac MRI director. If this truly is noncompaction, you were born with this. I will start you on a baby aspirin once per day to make sure no blood clots develop in the nooks and cranies of the heart I also want you to wear a ZIO patch for 2 weeks to make sure you have no dangerous heart rhythms Your blood pressure today is perfect I still may put you back on a tiny dose of lisinopril I rush like for you to have a sleep study to make sure you don't have sleep apnea which can lead to right heart issues Lab today documented in this encounter [facility] 04-09-2023 Note HNO ID: [id number] Author: Cameron Hernandez DO Service: ? Author Type: Physician Type: Procedures Filed: 05/07/2023 8:28 AM Note Text: Patient Name: Aly Bashir : 1990 Ordering Provider: Maycol Petty Indication: E55.9 Vitamin D deficiency, unspecified Type of Monitor: Extended Monitoring-Zio Patch Enrollment Dates: 04/14/2023-04/28/2023 Predominant rhythm sinus. Rare PAC and PVC Cameron Hernandez DO [facility] 04-08-2023 Note HNO ID: [id number] Author: Maycol Petty DO Service: ? Author Type: Physician Type: Progress Notes Filed: 04/10/2023 11:56 AM Note Text: Heart and Vascular [facility] SECTION OF HEART FAILURE and CARDIAC TRANSPLANT MEDICINE OUTPATIENT VISIT DATE April 09, 2023 OUTPATIENT VISIT TYPE New Patient PRIMARY CARE PHYSICIAN: Alfred Estrada [address] [place] [id number] CHIEF COMPLAINT: Cardiology Evaluation NURSING INTAKE (Patient?s concerns and/or recent hospitalizations/ER visits): Aly Bashir is a 33 year old male from [place], [place] here for second opinion on RV function seen on MRI. PMHx includes HTN; right ventricular myocardial noncompaction cardiomyopathy; HLD. HF Nursing Assessment: Interim Hospitalizations and/or ER visits: Chest Pain: daily discomfort, rates it about 3-4/10. Feels like a pain/irritation. Doesn't happen when working out Has been going on for years. Skipping or irregular heartbeats: no Shortness of breath at rest: no Shortness of breath with activity: no Cough: no Waking up in the middle of the night gasping for air: no Lightheadedness or dizziness: no Feeling like you are going to pass out: no Actually passing out: no Poor energy level: no Unintentional weight gain: no Unintentional weight loss: no Swelling in your legs,feet, abdomen: no Filling up quickly when you eat: no HISTORY OF PRESENT ILLNESS: 33 yo male here for cardiology evaluation after he underwent cardiac MRI to inquire further about right ventricular changes and was told he has isolated right ventricular non compaction Occasional atypical chest pains but no symptoms - he works out on a daily basis with weight lifting and aerobic exercise with no issues 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 PAST MEDICAL HISTORY Diagnosis Date Attention deficit disorder without mention of hyperactivity medication as child COVID-19 01/2022 Mild illness Genital herpes 12/26/2010 Hypertension 06/2022 Mixed hyperlipidemia 07/2021 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 Tourette's disorder As a child PAST SURGICAL HISTORY Procedure Laterality Date NONE SOCIAL HISTORY Social History Tobacco Use Smoking status: Never Smokeless tobacco: Never Tobacco comments: mom smokes Vaping Use Vaping Use: Never used Substance Use Topics Alcohol use: Yes Alcohol/week: 6.0 standard drinks of alcohol Types: 6 Cans of Beer (12oz) per week Drug use: No FAMILY HISTORY Problem Relation Age of Onset No Known Problems Mother Diabetes Father Hypertension Father Hyperlipidemia Father Heart Failure Father Stroke Maternal Grandmother No Known Problems Maternal Grandfather Hypertension Paternal Grandmother Diabetes Paternal Grandfather No Known Problems Brother No Known Problems Brother ALLERGIES: ALLERGIES No Known Allergies CURRENT MEDICATIONS: carvedilol (COREG) 3.125 mg tablet Take 3.125 mg by mouth two times a day. valACYclovir (VALTREX) 1 gram Take 1 tablet by mouth once daily. busPIRone (BUSPAR) 5 mg tablet TAKE 1 TABLET BY MOUTH THREE TIMES A DAY REVIEW OF SYSTEMS: CONSTITUTION: Negative for: Weight loss or gain, Fever. Chills, Night sweats HEENT: Negative for: Hearing loss, Nosebleeds, Mouth sores, Trouble swallowing, Dry mouth RESPIRATORY: Negative for: Cough, Difficulty breathing GASTROINTESTINAL: Negative for: Melena, Diarrhea, Nausea, Abdominal distension, Early satiety MUSCULOSKELETAL: Negative for: Arthralgias, Myalgias NEUROLOGICAL: Negative for: Headaches, Dizziness SKIN: Negative for: Rash EYES: Negative for: Vision disturbance CARDIOVASCULAR: Positive for: Chest pain Negative for: Leg swelling, Arrhythmia and Pre-syncope GENITOURINARY: Negative for: Difficulty urinatiing PATIENT ENTERED DATA: No flowsheet data found. PHQ-9 03/18/2022 03/24/2023 Score 0 0 No flowsheet data found. PHYSICAL EXAMINATION: BP 134/93 (BP Site: Right Arm) Pulse 70 Ht 175.3 cm (5' 9 ) Wt 86.6 kg (191 lb) SpO2 99% BMI 28.21 kg/m? General: Well appearing, in no acute distress. Skin: No clubbing, no cyanosis. Eyes: Extra ocular movements intact Oropharynx: Teeth in good repair. Neck: No jugular venous distention, no carotid bruits, carotids have a normal upstroke, no palpable thyromegaly. Lungs: Clear to auscultation bilaterally, no wheezing or rhonchi. Heart: Regular rhythm, PMI not displaced, S1, S2 normal, no S3, no S4, no heaves, no rub and no murmur. Abdomen: Soft, nontender, bowel sounds normal, no palpable organomegaly, no bruits. Extremities: No peripheral edema . Grade 2/4 distal pulses bilaterally. Neuro: Oriented to person, place and time, alert, cooperative, gait coordinated. CARDIOVASCULAR MEDICINE TESTING: I have personally reviewed the Electrocardiog (more content not included)... [facility] 04-08-2023 History of Presen t illness Narrative Images from the original note were not included. Heart [facility] SECTION OF HEART FAILURE and CARDIAC TRANSPLANT MEDICINE OUTPATIENT VISIT DATE April 09, 2023 OUTPATIENT VISIT TYPE New Patient PRIMARY CARE PHYSICIAN: Alfred Estrada [address] [place] [id number] CHIEF COMPLAINT: Cardiology Evaluation NURSING INTAKE (Patient s concerns and/or recent hospitalizations/ER visits): Aly Bashir is a 33 year old male from [place], [place] here for second opinion on RV function seen on MRI. PMHx includes HTN; right ventricular myocardial noncompaction cardiomyopathy; HLD. HF Nursing Assessment: Interim Hospitalizations and/or ER visits: Chest Pain: daily discomfort, rates it about 3-4/10. Feels like a pain/irritation. Doesn't happen when working out Has been going on for years. Skipping or irregular heartbeats: no Shortness of breath at rest: no Shortness of breath with activity: no Cough: no Waking up in the middle of the night gasping for air: no Lightheadedness or dizziness: no Feeling like you are going to pass out: no Actually passing out: no Poor energy level: no Unintentional weight gain: no Unintentional weight loss: no Swelling in your legs,feet, abdomen: no Filling up quickly when you eat: no HISTORY OF PRESENT ILLNESS: 33 yo male here for cardiology evaluation after he underwent cardiac MRI to inquire further about right ventricular changes and was told he has isolated right ventricular non compaction Occasional atypical chest pains but no symptoms - he works out on a daily basis with weight lifting and aerobic exercise with no issues 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 PAST MEDICAL HISTORY Diagnosis Date Attention deficit disorder without mention of hyperactivity medication as child COVID-19 01/2022 Mild illness Genital herpes 12/26/2010 Hypertension 06/2022 Mixed hyperlipidemia 07/2021 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 Tourette's disorder As a child PAST SURGICAL HISTORY Procedure Laterality Date NONE SOCIAL HISTORY Social History Tobacco Use Smoking status: Never Smokeless tobacco: Never Tobacco comments: mom smokes Vaping Use Vaping Use: Never used Substance Use Topics Alcohol use: Yes Alcohol/week: 6.0 standard drinks of alcohol Types: 6 Cans of Beer (12oz) per week Drug use: No FAMILY HISTORY Problem Relation Age of Onset No Known Problems Mother Diabetes Father Hypertension Father Hyperlipidemia Father Heart Failure Father Stroke Maternal Grandmother No Known Problems Maternal Grandfather Hypertension Paternal Grandmother Diabetes Paternal Grandfather No Known Problems Brother No Known Problems Brother ALLERGIES: ALLERGIES No Known Allergies CURRENT MEDICATIONS: carvedilol (COREG) 3.125 mg tablet Take 3.125 mg by mouth two times a day. valACYclovir (VALTREX) 1 gram Take 1 tablet by mouth once daily. busPIRone (BUSPAR) 5 mg tablet TAKE 1 TABLET BY MOUTH THREE TIMES A DAY REVIEW OF SYSTEMS: CONSTITUTION: Negative for: Weight loss or gain, Fever. Chills, Night sweats HEENT: Negative for: Hearing loss, Nosebleeds, Mouth sores, Trouble swallowing, Dry mouth RESPIRATORY: Negative for: Cough, Difficulty breathing GASTROINTESTINAL: Negative for: Melena, Diarrhea, Nausea, Abdominal distension, Early satiety MUSCULOSKELETAL: Negative for: Arthralgias, Myalgias NEUROLOGICAL: Negative for: Headaches, Dizziness SKIN: Negative for: Rash EYES: Negative for: Vision disturbance CARDIOVASCULAR: Positive for: Chest pain Negative for: Leg swelling, Arrhythmia and Pre-syncope GENITOURINARY: Negative for: Difficulty urinatiing PATIENT ENTERED DATA: No flowsheet data found. PHQ-9 03/18/2022 03/24/2023 Score 0 0 No flowsheet data found. PHYSICAL EXAMINATION: BP 134/93 (BP Site: Right Arm) Pulse 70 Ht 175.3 cm (5' 9 ) Wt 86.6 kg (191 lb) SpO2 99% BMI 28.21 kg/m General: Well appearing, in no acute distress. Skin: No clubbing, no cyanosis. Eyes: Extra ocular movements intact Oropharynx: Teeth in good repair. Neck: No jugular venous distention, no carotid bruits, carotids have a normal upstroke, no palpable thyromegaly. Lungs: Clear to auscultation bilaterally, no wheezing or rhonchi. Heart: Regular rhythm, PMI not displaced, S1, S2 normal, no S3, no S4, no heaves, no rub and no murmur. Abdomen: Soft, nontender, bowel sounds normal, no palpable organomegaly, no bruits. Extremities: No peripheral edema . Grade 2/4 distal pulses bilaterally. Neuro: Oriented to person, place and time, alert, cooperative, gait coordinated. CARDIOVASCULAR MEDICINE TESTING: I have personally reviewed the Electrocardiogram, Chest X-ray, Laboratory Testing, Echocardiogram, and Cardiac MRI. Last EKG Result Conclusion EKG Collected: 06/18/2022 3:35 PM (Preliminary result) Impression: NORMAL SINUS RHYTHM MINIMAL VOLTAGE CRITERIA FOR LVH, MAY BE NORMAL VARIANT BORDERLINE ECG NO PREVIOUS ECGS AVAILABLE Last MRI Result Conclusion MRI CARDIAC VELOCITY FLOW MAP Collected: 02/26/2023 5:41 PM (Final result) Impression: IMPRESSION: - The left ventricle is normal in size (LV EDVi = 49 ml/m ). The left ventricular systolic function is low normal (LV EF = 50 %). - The right ventricle is normal in size (RV EDVi = 63 ml/m ). The right ventricular systolic function is moderately decreased (RV EF = 25 %). There is evidence of increased trabeculations involving the mid, distal right ventricle. Trabecular recesses are seen. Although there are no established criteria for isolated right ventricular noncompaction, the increased trabeculation within the right ventricle, along with the absence of right ventricular free wall aneurysms/dyskinesis/fibrofatty infiltration suggest a diagnosis of isolated right ventricular noncompaction. The study does not support a diagnosis of arrhythmogenic right ventricular cardiomyopathy. The overall increase in the right ventricular trabeculation is more in line with isolated right ventricular noncompaction, as opposed to an isolated prominent moderator band. - No thrombi are visualized within the right or left ventricular cavity. - Late gadolinium enhancement (LGE) sequences did not indicate any LGE involving either the left or the right ventricle. - Trivial to mild mitral regurgitation is seen. - The patient has not had a prior CC cardiac MR exam for comparison. * * * Final * * * RP [employer] Power Plant Engineer: AILEEN Transcribe Date/Time: Feb 26 2023 2:53P Dictated by : VI GARCIA MD This examination was interpreted and the report reviewed and electronically signed by: VI GARCIA MD on Feb 27 2023 10:36PM EST Stress Test 08/04/2022 Echo 08/04/2022 IMPRESSION: NYHA Functional Class: I Stage: B heart failure Target weight: current HTN ADD - history of adderall use Atypical chest pressure Prominent RV moderator band? PLAN AND RECOMMENDATIONS: You may have something called isolated right ventricular noncompaction - I will verify and review your cardiac MRI with our cardiac MRI team - this is exceedingly rare If this truly is noncompaction, you were born with this. I will start you on a baby aspirin once per day to make sure no blood clots develop in the nooks and cranies of the heart I also want you to wear a ZIO patch for 2 weeks to make sure you have no dangerous heart rhythms Your blood pressure today is perfect I still may put you back on a tiny dose of lisinopril I rush like for you to have a sleep study to make sure you don't have sleep apnea which can lead to right heart issues Lab today Orders Placed This Encounter POLYSOMNOGRAM (PSG) Standing Status: Future Standing Expiration Date: 04/08/2024 Scheduling Instructions: SLEEP STUDY SCHEDULING INSTRUCTIONS (IN LABORATORY SLEEP STUDY): If your sleep study has not been scheduled, please call to schedule. If you have been directed to call a specific location, please call the appropriate number: - [facility] or [facility] - [phone] or toll free at [phone] Thursday - Thursday: 8 am- 4:30 pm - [place] - [phone] - [place] - [phone] - [place] - [phone] - [facility] - [phone] On the night of your study please report to the designated [facility] at your scheduled appointment time. Only for patients at the [place] site, please call the lab upon arrival @ and one of our staff will come to lobby to greet you and escort you to your sleep room. After your study you will be free to leave the sleep laboratory at all sites, except the [facility], between 5 a.m. and 6 a.m. unless other scheduling arrangements have been made in advance. If you are having your sleep test at the [facility], you will be able to leave between 6 a.m. and 7 a.m. Your results will be available no later than 10 business days after your study is completed. You may need to schedule a visit to discuss your results with a sleep provider or the provider who ordered your study. In preparation, please read the following carefully: 1. Cancellations must be made at least one (1) day prior to your scheduled appointment. You may be charged a $250 fee if you do not cancel at least one (1) day in advance or fail to show for your appointment. 2. If prescribed or taking a sleep aid, please be sure you have someone drive you to your appointment and pick you up from the appointment. 3. Parking is free of charge. 4. Avoid taking a nap on the day of the study. 5. Avoid alcohol and sedatives for 24 hours before the study, unless otherwise directed by the referring provider. Alerting medications may also need to be adjusted depending on any other tests you have scheduled. 6. On the day of the study, make sure that your hair is free of oil, hair spray and other products. Do not wear hair pieces or weaves. We will need to mess up your hair to apply the sensors. 7. Eat your regular evening meal before you arrive at the Sleep Disorders Center. 8. Bring a list of your regularly scheduled medications. Plan to take your medications as you normally would unless your referring provider instructs you otherwise. 9. Bring comfortable sleep attire consisting of a top and bottom. Avoid wearing silk or silk like material. Shower facilities are provided. 10. If you received a sleep questionnaire and sleep logs, please bring the completed materials to the appointment. 11. If you are using any type of positive airway pressure therapy (PAP) at home, bring your mask only. 12. If you are under 18 years of age, one adult (over [id number]) parent or guardian is required to stay with you in the Sleep Disorder Center for the entire duration of your testing. We cannot accommodate additional family members or caregivers. 13. Nursing services are not available. Notify us if you have a disability that requires special assistance. You may be required to have a caregiver present during testing. 14. Smoking is prohibited. 15. If you are unable to keep your appointment or if you have an upper respiratory infection causing significant nasal congestion, contact the Sleep Disorders Center at the number you scheduled or location as above at least 48 hours in advance. We hope that your experience in our laboratory is a pleasant one. Order Specific Question: Indications - Select All That Apply Answer: Obstructive sleep apnea Order Specific Question: STOP-BANG conditions - Select All That Apply Answer: GENDER = male Order Specific Question: STOP-BANG conditions - Select All That Apply Answer: high blood PRESSURE Order Specific Question: Comorbidities Answer: Moderate/Severe Cardiac disease Order Specific Question: Specify Cardiac Disease Answer: Other: see comments Order Specific Question: Is the patient non-ambulatory or will they be accompanied by a caregiver? Answer: No Order Specific Question: Current use of supplemental oxygen during sleep period? Answer: No Order Specific Question: Add supplemental oxygen if needed per sleep lab policy? Answer: Yes Order Specific Question: Is this a repeat Sleep Study? Answer: No [facility] VIRTUAL VISIT APPOINTMENT Order Specific Question: Department Answer: [facility] Order Specific Question: Appt Type Answer: [facility] E&M Level 1 ($35) [id number] Order Specific Question: Date of Appt Answer: 1-2 months [facility] VIRTUAL VISIT APPOINTMENT Order Specific Question: Department Answer: [facility] Order Specific Question: Appt Type Answer: [employer] E&M Level 3 ($842) [id number] Order Specific Question: Date of Appt Answer: 1-2 months Vitamin D 25 Hydroxy Standing Status: Future Number of Occurrences: 1 Standing Expiration Date: 06/09/2023 NT PRO BNP Standing Status: Future Number of Occurrences: 1 Standing Expiration Date: 06/09/2023 ZIO PATCH-financial clearance required Order Comments: Financial clearance needed: Arrhythmia lab [phone] Financial Counselor [phone] ext 3 Order Specific Question: Vendor Answer: ZIO Order Specific Question: ICD/Pacemaker? Answer: No Order Specific Question: Duration Answer: 14 Days Order Specific Question: Prior Testing Performed? Answer: Holter carvedilol (COREG) 3.125 mg tablet Sig: Take 3.125 mg by mouth two times a day. I personally interviewed, confirmed and edited the above information as obtained by others I personally spent 60 minutes in total time involved in the management and care of this patient. We discussed natural history of disease, current treatment options, and future potential treatment options. We discussed diet, exercise, other non-medical management as above. Maycol Petty DO [facility] Section Of Heart Failure and Cardiac Transplant Medicine Heart and Vascular [place] [facility] Desk [id number] [address] ADDENDUM: Spoke with 2 cardiac MRI readers here at [facility], spoke with 2 of my Heart Failure colleagues and communicated with original MRI reader. Personal communication: I don't personally think this is RV non-compaction, but on some oblique views, there is certainly prominent trabeculations (see bottom right image). In the very few cases of isolated RV non compaction I have seen, there has been clear RV enlargement which you just don't see here. I personally re-quantified RV function, size appears well and truly normal (RVEDVi = 55 cc/m2). No RV LGE. No features of ARVC. What strikes me as very unusual is that the RV function is at least mildly down, doesn't look too bad visually and even on my review of the outside echo but works about to be about 30%, which can on occasion be seen in someone very athletic (professional level). Would get a follow up CMR here in 12 months, at [facility] to assess progression. At this time will maintain ASA and BB that he was placed on, continue with sleep study and ZIO patch and repeat cardiac MRI at [facility]. Communicated this to patient. Maycol Petty DO April 10, 2023 11:56 AM documented in this encounter [facility] 04-02-2023 Miscellaneous Notes Patient: Aly Bashir Date of : 1990 Patient phone number: [phone] Referring Provider for the encounter: rochelle menezes [phone] fax [phone] Requesting Provider: none specified Reason for requesting visit (RFV/signs and symptoms/diagnosis): CONGESTIVE HEART FAILURE Person calling: ASHLEY AT DR MENEZES'S [phone] fax [phone] Return call to: self Medical Records/Insurance Card scanned into We: No Comments: NONE documented in this encounter [facility] 03-24-2023 Note HNO ID: [id number] Author: Alfred Estrada APRN.MARCELLE Service: ? Author Type: Nurse Practitioner Type: Progress Notes Filed: 03/29/2023 12:07 PM Note Text: This note was created using IndiaIdeasriter. Subjective Aly Bashir is a 33 year old male here today for HTN follow-up. I reviewed past medical, surgical, social, and family histories today and updated chart. Allergies, chronic medications, and supplements were also reviewed. Patient was diagnosed with primary hypertension in June 2022 - he had not been feeling right, constant heart pounding. He went to [facility] for high BP of 170/120 on 06/12/22. EKG and labs were normal. There was borderline LVH on EKG. He was referred to see a kindergartner. Around the same time his anxiety was worsening. Treated with Buspar with improvement Blood pressures in the office remained at goal, Home BPs would fluctuate Patient established care with kindergartner Dr Menezes - [facility] Echocardiogram done 08/04/22 = LVEF 65%, Prominent moderator band in RV vs non-compaction. 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 He was referred to a heart failure specialist, he isn't sure where, needs to schedule Patient served in the for 17 years Exposure to burn pits for almost 1 year Stationed at [facility], [facility], [facility], [place] He is in contact with [facility] regarding disability Blood pressures have been elevated at home - always higher in the right arm He is not currently on blood pressure medication. He states his kindergartner was surprised he has not been started on medication yet. 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 MEDICATIONS valACYclovir (VALTREX) 1 gram Take 1 tablet by mouth once daily. busPIRone (BUSPAR) 5 mg tablet TAKE 1 TABLET BY MOUTH THREE TIMES A DAY lisinopril (ZESTRIL) 10 mg tablet Take 1 tablet by mouth once daily. FAMILY HISTORY Problem Relation Age of Onset No Known Problems Mother Diabetes Father Hypertension Father Hyperlipidemia Father No Known Problems Brother No Known Problems Brother Stroke Maternal Grandmother No Known Problems Maternal Grandfather Hypertension Paternal Grandmother Diabetes Paternal Grandfather Social History Tobacco Use Smoking status: Never Smokeless tobacco: Never Tobacco comments: mom smokes Vaping Use Vaping Use: Never used Substance Use Topics Alcohol use: Yes Alcohol/week: 6.0 standard drinks of alcohol Types: 6 Cans of Beer (12oz) per week Comment: rarely Drug use: No Review of Systems Constitutional: Negative for appetite change, chills, fatigue, fever and unexpected weight change. HENT: Negative for congestion, ear pain, rhinorrhea and sore throat. Eyes: Negative for pain, discharge, itching and visual disturbance. Respiratory: Negative for cough, shortness of breath and wheezing. Cardiovascular: Positive for chest pain. Negative for palpitations and leg swelling. Gastrointestinal: Negative for abdominal pain, constipation, diarrhea, nausea and vomiting. Genitourinary: Negative for difficulty urinating. Musculoskeletal: Negative for arthralgias. Skin: Negative for rash. Neurological: Negative for dizziness, tremors, weakness and headaches. Psychiatric/Behavioral: Negative for dysphoric mood and sleep disturbance. The patient is nervous/anxious. Objective BP 110/84 (BP Site: Left Arm) Pulse 72 Temp 36.6 ?C (97.8 ?F) Ht 177.2 cm (5' 9.75 ) Wt 84.8 kg (187 lb) SpO2 96% BMI 27.02 kg/m? 110 84 - left arm Physical Exam Constitutional: Appearance: Normal appearance. He is well-developed. He is not diaphoretic. HENT: Head: Normocephalic and atraumatic. Right Ear: Hearing, tympanic membrane, ear canal and external ear normal. Left Ear: Hearing, tympanic membrane, ear canal and external ear normal. Nose: Nose normal. Mouth/Throat: Lips: [place]. Mouth: Mucous membranes are moist. Pharynx: Oropharynx is clear. Eyes: General: Lids are normal. Conjunctiva/sclera: Conjunctivae normal. Pupils: Pupils are equal, round, and reactive to light. Neck: Vascular: Normal carotid pulses. No carotid bruit or JVD. Cardiovascular: Rate and Rhythm: Normal rate and regular rhythm. Pulses: Carotid pulses are 2+ on the righ (more content not included)... [facility] 03-24-2023 History of Presen t illness Narrative This note was created using 2Win-Solutionster. Subjective Aly Bashir is a 33 year old male here today for HTN follow-up. I reviewed past medical, surgical, social, and family histories today and updated chart. Allergies, chronic medications, and supplements were also reviewed. Patient was diagnosed with primary hypertension in June 2022 - he had not been feeling right, constant heart pounding. He went to [facility] for high BP of 170/120 on 06/12/22. EKG and labs were normal. There was borderline LVH on EKG. He was referred to see a kindergartner. Around the same time his anxiety was worsening. Treated with Buspar with improvement Blood pressures in the office remained at goal, Home BPs would fluctuate Patient established care with kindergartner Dr Menezes - [facility] Echocardiogram done 08/04/22 = LVEF 65%, Prominent moderator band in RV vs non-compaction. 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 He states his kindergartner was surprised he has not been started on medication yet. 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 MEDICATIONS valACYclovir (VALTREX) 1 gram Take 1 tablet by mouth once daily. busPIRone (BUSPAR) 5 mg tablet TAKE 1 TABLET BY MOUTH THREE TIMES A DAY lisinopril (ZESTRIL) 10 mg tablet Take 1 tablet by mouth once daily. FAMILY HISTORY Problem Relation Age of Onset No Known Problems Mother Diabetes Father Hypertension Father Hyperlipidemia Father No Known Problems Brother No Known Problems Brother Stroke Maternal Grandmother No Known Problems Maternal Grandfather Hypertension Paternal Grandmother Diabetes Paternal Grandfather Social History Tobacco Use Smoking status: Never Smokeless tobacco: Never Tobacco comments: mom smokes Vaping Use Vaping Use: Never used Substance Use Topics Alcohol use: Yes Alcohol/week: 6.0 standard drinks of alcohol Types: 6 Cans of Beer (12oz) per week Comment: rarely Drug use: No Review of Systems Constitutional: Negative for appetite change, chills, fatigue, fever and unexpected weight change. HENT: Negative for congestion, ear pain, rhinorrhea and sore throat. Eyes: Negative for pain, discharge, itching and visual disturbance. Respiratory: Negative for cough, shortness of breath and wheezing. Cardiovascular: Positive for chest pain. Negative for palpitations and leg swelling. Gastrointestinal: Negative for abdominal pain, constipation, diarrhea, nausea and vomiting. Genitourinary: Negative for difficulty urinating. Musculoskeletal: Negative for arthralgias. Skin: Negative for rash. Neurological: Negative for dizziness, tremors, weakness and headaches. Psychiatric/Behavioral: Negative for dysphoric mood and sleep disturbance. The patient is nervous/anxious. Objective BP 110/84 (BP Site: Left Arm) Pulse 72 Temp 36.6 C (97.8 F) Ht 177.2 cm (5' 9.75 ) Wt 84.8 kg (187 lb) SpO2 96% BMI 27.02 kg/m 110 84 - left arm Physical Exam Constitutional: Appearance: Normal appearance. He is well-developed. He is not diaphoretic. HENT: Head: Normocephalic and atraumatic. Right Ear: Hearing, tympanic membrane, ear canal and external ear normal. Left Ear: Hearing, tympanic membrane, ear canal and external ear normal. Nose: Nose normal. Mouth/Throat: Lips: [place]. Mouth: Mucous membranes are moist. Pharynx: Oropharynx is clear. Eyes: General: Lids are normal. Conjunctiva/sclera: Conjunctivae normal. Pupils: Pupils are equal, round, and reactive to light. Neck: Vascular: Normal carotid pulses. No carotid bruit or JVD. Cardiovascular: Rate and Rhythm: Normal rate and regular rhythm. Pulses: Carotid pulses are 2+ on the right side and 2+ on the left side. Radial pulses are 2+ on the right side and 2+ on the left side. Dorsalis pedis pulses are 2+ on the right side and 2+ on the left side. Heart sounds: Normal heart sounds. No murmur heard. Pulmonary: Effort: Pulmonary effort is normal. Breath sounds: Normal breath sounds. No wheezing, rhonchi or rales. Abdominal: General: Bowel sounds are normal. Palpations: Abdomen is soft. Tenderness: There is no abdominal tenderness. Musculoskeletal: Cervical back: Normal range of motion and neck supple. Right lower leg: No edema. Left lower leg: No edema. Lymphadenopathy: Cervical: No cervical adenopathy. Skin: General: Skin is warm and dry. Findings: No rash. Neurological: General: No focal deficit present. Mental Status: He is alert and oriented to person, place, and time. Cranial Nerves: No cranial nerve deficit. Sensory: Sensation is intact. Motor: Motor function is intact. Coordination: Coordination is intact. Gait: Gait is intact. Psychiatric: Attention and Perception: Attention and perception normal. Mood and Affect: Mood and affect normal. Speech: Speech normal. Behavior: Behavior normal. Behavior is cooperative. Thought Content: Thought content normal. Judgment: Judgment normal. [facility] [address] [place] [address] MR#: [id number] Acct: [id number] Name: ALY BASHIR Rep #: [id number] : 1990 32 From: José Miguel Menezes MD Primary Care: NEVILLE Sandoval Status: REG CLI Referring Dr: Sex: M C Stress Test Report Date: 08/04/2022 Procedure: Exercise tolerance test Indications: Chest pain Consent: Per the patient Procedure: The patient exercised on a Jose protocol for 12 minutes and 30 seconds achieving a peak heart rate of 176 bpm (93% predicted maximal heart rate) with a peak blood pressure 190/98 mmHg and a peak MET capacity of approximately 15.3 MET's. The baseline ECG demonstrated normal sinus rhythm. The peak exercise ECG demonstrated no ischemic changes. There were no cardiac dysrhythmias pretest, during exercise, or recovery. The functional capacity was considered good. The patient had no complaints of chest discomfort during exercise or recovery. The examination was discontinued secondary to target heart rate being achieved. Impression: 1. Technically adequate (percent predicted maximal heart rate greater than 85%) exercise tolerance test 2. Peak exercise ECG with no ischemic changes. 3. There were no cardiac dysrhythmias during exercise or recovery This note was generated with Expaation software. It may contain incorrect words, spelling, and punctuation that were not noted in checking the note before signing. 08/06/22 1542 Date ___ José Miguel Menezes MD [facility] [address] [place] [id number] Echo Complete 08/04/22 1059 MR#: [id number] Acct: [id number] Name: ALY BASHIR Rep #: [id number] : 1990 32 From: José Miguel Menezes MD Attending Dr: Dr. José Miguel Menezes MD Status: REG CLI Ordering Dr: José Miguel Menezes MD Date: 08/04/22 Location: [facility] Sex: M C Admitted: Reason For Study: CHEST PAIN Procedure This was a 2D Doppler, Color Flow transthoracic echocardiogram. Exam performed in department. Left Ventricle Normal size and thickness. The left ventricular ejection fraction is 65 %. Right Ventricle Normal RV size. A moderator band is seen in the right ventricle. Normal systolic function. Atria The left and right atria are normal. Mitral Valve The mitral valve is structurally normal. No prolapse or stenosis seen. Tricuspid Valve Normal tricuspid valve. Aortic Valve Normal aortic valve. Pulmonic Valve The pulmonic valve is not well visualized. Great Vessels Normal sized aortic root. Pericardium/Pleural No pericardial effusion. MMode/2D Measurements Calculations LVIDd: 4.4 cm IVSd: 1.1 cm Ao root diam: 3.1 cm LVIDs: 3.3 cm LVPWd: 1.0 cm RVDd: 3.8 cm FS: 25.5 % LAV(MOD-sp4): 26.6 ml LVAd ap4: 29.1 cm2 SV(MOD-sp4): 57.9 ml LVLd ap4: 7.7 cm EDV(MOD-sp4): 90.1 ml EDV(sp4-el): 94.1 ml LVAs ap4: 15.1 cm2 LVLs ap4: 6.1 cm ESV(MOD-sp4): 32.2 ml ESV(sp4-el): 32.1 ml EF(MOD-sp4): 64.3 % EF(sp4-el): 65.9 % SV(sp4-el): 62.0 ml LA A4 area: 12.0 cm2 LA dimension(2D): 3.3 cm RA A4 area: 15.2 cm2 Time Measurements MV dec time: 0.19 sec Doppler Measurements Calculations MV E max guevara: 63.1 cm/sec Lat Peak E' Guevara: 16.0 cm/sec Med Peak E' Guevara: 8.8 cm/sec MV A max guevara: 63.1 cm/sec E/E' lat: 4.0 E/E' med: 7.2 MV E/A: 1.00 MV V2 max: 76.1 cm/sec Ao V2 max: 100.6 cm/sec MV max P.3 mmHg MV dec slope: 333.9 cm/sec2 Ao max P.1 mmHg MV V2 mean: 44.0 cm/sec Ao V2 mean: 69.0 cm/sec MV mean P.88 mmHg Ao mean P.2 mmHg MV V2 VTI: 26.1 cm Ao V2 VTI: 22.5 cm AV (velocity ratio): 0.83 LV V1 max: 88.8 cm/sec PA V2 max: 102.6 cm/sec LV V1 max P.2 mmHg PA V2 mean: 65.9 cm/sec LV V1 mean P.8 mmHg LV V1 mean: 61.9 cm/sec LV V1 VTI: 18.7 cm ECHO/Echo Complete Interpretation Summary The left ventricular ejection fraction is 65 %. Prominent moderator band in RV vs non-compaction. Recommend cardiac MR for further evaluation.. 02/27/2023 10:36 PM - MRI CARDIAC IMPRESSION: - The left ventricle is normal in size (LV EDVi = 49 ml/m ). The left ventricular systolic function is low normal (LV EF = 50 %). - The right ventricle is normal in size (RV EDVi = 63 ml/m ). The right ventricular systolic function is moderately decreased (RV EF = 25 %). There is evidence of increased trabeculations involving the mid, distal right ventricle. Trabecular recesses are seen. Although there are no established criteria for isolated right ventricular noncompaction, the increased trabeculation within the right ventricle, along with the absence of right ventricular free wall aneurysms/dyskinesis/fibrofatty infiltration suggest a diagnosis of isolated right ventricular noncompaction. The study does not support a diagnosis of arrhythmogenic right ventricular cardiomyopathy. The overall increase in the right ventricular trabeculation is more in line with isolated right ventricular noncompaction, as opposed to an isolated prominent moderator band. - No thrombi are visualized within the right or left ventricular cavity. - Late gadolinium enhancement (LGE) sequences did not indicate any LGE involving either the left or the right ventricle. - Trivial to mild mitral regurgitation is seen. - The patient has not had a prior CC cardiac MR exam for comparison. Component Latest Ref Rng & Units 07/30/2021 06/18/2022 01/13/2023 Cholesterol, Total <200 mg/dL 205 (H) 234 (H) 195 Triglyceride <150 mg/dL 146 264 (H) 75 HDL Cholesterol >39 mg/dL 40 39 (L) 40 LDL Cholesterol <100 mg/dL 136 (H) 142 (H) 140 (H) Non HDL Cholesterol <130 mg/dL 165 (H) 195 (H) 155 (H) Fasting Time hrs 12 12 12 VLDL Cholesterol <30 mg/dL 29 53 (H) 15 TC:HDL Ratio <5.10 5.13 (H) 6.00 (H) 4.88 LDL:HDL Ratio <2.54 3.40 (H) 3.64 (H) 3.50 (H) Component Latest Ref Rng & Units 06/18/2022 01/13/2023 Protein, Total 6.3 - 8.0 g/dL 7.7 7.7 Albumin 3.9 - 4.9 g/dL 5.0 (H) 5.0 (H) Calcium 8.5 - 10.2 mg/dL 9.8 9.6 Bilirubin, Total 0.2 - 1.3 mg/dL 0.7 0.8 Alkaline Phosphatase 38 - 113 U/L 49 50 AST 14 - 40 U/L 24 26 ALT 10 - 54 U/L 44 39 Glucose 74 - 99 mg/dL 89 99 BUN 9 - 24 mg/dL 19 18 Creatinine 0.73 - 1.22 mg/dL 1.03 1.08 Sodium 136 - 144 mmol/L 138 139 Potassium 3.7 - 5.1 mmol/L 4.5 4.4 Chloride 97 - 105 mmol/L 100 103 CO2 22 - 30 mmol/L 30 25 Anion Gap 9 - 18 mmol/L 8 (L) 11 eGFR >=60 mL/min/1.73m 99 94 Color Yellow Yellow Clarity Clear Clear Glucose, Urine Negative Negative Bilirubin, Urine Negative Negative Ketones, Urine Trace, Negative Negative Specific Phelps, Ur 1.005 - 1.030 1.020 Hemoglobin/Blood,Ur Negative, Trace Negative pH, Urine 5.0 - 8.0 7.0 Protein, Urine Negative Negative Urobilinogen 0.2-1.0 EU/dL 0.2 EU/dL Nitrites Negative Negative Leukest Negative Negative WBC, Urine 0-5 /HPF 0-5 /HPF RBC, Urine 0-3 /HPF 0-3 /HPF WBC 3.70 - 11.00 k/uL 6.90 RBC 4.20 - 6.00 m/uL 5.43 Hemoglobin 13.0 - 17.0 g/dL 16.6 Hematocrit 39.0 - 51.0 % 48.6 MCV 80.0 - 100.0 fL 89.5 MCH 26.0 - 34.0 pg 30.6 MCHC 30.5 - 36.0 g/dL 34.2 RDW-CV 11.5 - 15.0 % 11.3 (L) Platelet Count 150 - 400 k/uL 261 MPV 9.0 - 12.7 fL 9.9 TSH 0.270 - 4.200 mIU/L 2.820 ASSESSMENT/PLAN: 1. Hypertension, unspecified type - ICD9: 401.9, ICD10: I10 (primary diagnosis) - Uncontrolled - Start lisinopril 10 mg daily Will defer future cardiac medications to cardiology - Recommend home blood pressure monitoring, to bring results to next visit - Encouraged sodium restriction, DASH or Mediterranean diet 2. 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 Hyperlipidemia, unspecified hyperlipidemia type - ICD9: 272.4, ICD10: E78.5 - Uncontrolled Defer decision to treat with medication to cardiology - Counseled on healthy diet and regular exercise Alfred Estrada APRN.SURFACE SUPERVISOR documented in this encounter [facility] 03-04-2023 Note Patient Outreach (AG INTMLW) ALY BASHIR ([id number]) 1990 M Date Time Provider Department 03/04/23 GAYLE DOWD AGINTMLW During your visit today, we recorded the following information about you: Gayle Dowd MA 03/04/2023 11:08 AM Signed ED Follow Up: Patient discharged from [facility] ED on 03/02/23. 1. How are you feeling since your ED visit? better Have your symptoms improved or resolved? Yes 2. Were you prescribed any medications while in the ED or advised to stop any medication? No - If yes, were you able to fill your prescriptions? Not applicable -if stopped medication, what was the medication? NA 3. Were you advised to schedule a follow up appointment with your provider? Yes - If no, Do you feel like you need an appointment scheduled? Not applicable - If yes, Do you need this scheduled now or has this already been scheduled? Pt doesn't feel he needs apt at this time dissolving sutures were placed 4. Were you able to contact the office or transaction coordinator provider prior to your ED visit? No 5. Is there anything else I can do for you today? No Allergies As of Date: 03/04/2023 (No Known Allergies) Date Reviewed: 01/19/2023 Reviewed by: Alfred Estrada APRN.SURFACE SUPERVISOR - Fully Assessed Prescriptions as of 03/04/2023 - valACYclovir (VALTREX) 1 gram Take 1 tablet by mouth once daily. - busPIRone (BUSPAR) 5 mg tablet TAKE 1 TABLET BY MOUTH THREE TIMES A DAY Meds Comments as of 03/26/2010: Reviewed current meds, 03/16/2008. 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 Author Type: Member Of Technical Staff Type: Progress Notes Filed: 03/04/2023 11:08 AM Note Text: ED Follow Up: Patient discharged from [facility] ED on 03/02/23. 1. How are you feeling since your ED visit? better Have your symptoms improved or resolved? Yes 2. Were you prescribed any medications while in the ED or advised to stop any medication? No - If yes, were you able to fill your prescriptions? Not applicable -if stopped medication, what was the medication? NA 3. Were you advised to schedule a follow up appointment with your provider? Yes - If no, Do you feel like you need an appointment scheduled? Not applicable - If yes, Do you need this scheduled now or has this already been scheduled? Pt doesn't feel he needs apt at this time dissolving sutures were placed 4. Were you able to contact the office or transaction coordinator provider prior to your ED visit? No 5. Is there anything else I can do for you today? No [facility] 03-03-2023 Note Procedure Laceration Repair Performed by: Jose Jacques DO Authorized by: Anita Hutson MD Consent: Consent obtained: Verbal Consent given by: Patient Risks, benefits, and alternatives were discussed: yes Risks discussed: Infection, tendon damage, vascular damage, poor wound healing and poor cosmetic result Alternatives discussed: No treatment [place] protocol: Procedure explained and questions answered to patient or proxy's satisfaction: yes Relevant documents present and verified: yes Test results available: no Imaging studies available: yes Required blood products, implants, devices, and special equipment available: no Site/side marked: no Immediately prior to procedure, a time out was called: no Patient identity confirmed: Verbally with patient and hospital-assigned identification number Anesthesia: Anesthesia method: Nerve block and local infiltration Local anesthetic: Lidocaine 1% WITH epi Block anesthetic: Lidocaine 1% WITH epi Block injection procedure: Incremental injection Block outcome: Anesthesia achieved Laceration details: Location: Shoulder/arm Shoulder/arm location: R upper arm Length (cm): 8 Depth (mm): 3 Pre-procedure details: Preparation: Patient was prepped and draped in usual sterile fashion and imaging obtained to evaluate for foreign bodies Exploration: Limited defect created (wound extended): yes Hemostasis achieved with: Epinephrine and direct pressure Imaging obtained: x-ray Imaging outcome: foreign body not noted Wound exploration: wound explored through full range of motion and entire depth of wound visualized Contaminated: yes Treatment: Area cleansed with: Povidone-iodine, Shur-Clens and saline Amount of cleaning: Extensive Irrigation solution: Sterile saline Irrigation method: Syringe Visualized foreign bodies/material removed: no Debridement: None Undermining: None Scar revision: no Skin repair: Repair method: Sutures Suture size: 4-0 and 5-0 Suture material: Prolene Suture technique: Simple interrupted and running Number of sutures: 11 Approximation: Approximation: Close Repair type: Repair type: Simple Post-procedure details: Dressing: Sterile dressing and non-adherent dressing Procedure completion: Tolerated well, no immediate complications Jose Jacques DO Resident 03/03/23 0247 [facility] 03-03-2023 Emergency department Note Patient in triage stated forgot to remove IV, sandra medic removed IV Ailyn Castellanos RN 03/03/23 0316 [facility] 03-03-2023 Emergency department Note Patient in triage stated forgot to remove IV, sandra medic removed IV Ailyn Castellanos RN 03/03/23 0316 EMERGENCY DEPARTMENT ENCOUNTER Pt Name: Aly Bashir Birthdate 1990 Date of evaluation: 03/02/2023 ED Provider: Jose Jacques DO CHIEF COMPLAINT Chief Complaint Patient presents with Laceration Was drinking tonight and punched a couple windows. Lac to right elbow and fingers to right hand HISTORY OF PRESENT ILLNESS (Location/Symptom, Timing/Onset, Context/Setting, Quality, Duration, Modifying Factors, Severity) Note limiting factors. I wore appropriate PPE for the entirety of this encounter. HPI Aly Bashir is a 33 y.o. who presents to the emergency department laceration to right elbow and fingers on right hand. Alcohol use involved. No medical history in chart. Patient was intoxicated with alcohol when he arrived home and realized his door would not open so he decided to punch the windows with his right arm he punched a total of 3 window pains. He has a laceration to the posterior aspect of his elbow and 2 lacerations on his third and fourth finger between the DIP and PIP. Nursing Notes were reviewed. Limitations to history: None Outside historians: Significant other REVIEW OF SYSTEMS Review of Systems Pertinent positives and negatives as per HPI. PAST MEDICAL HISTORY No past medical history on file. SURGICAL HISTORY No past surgical history on file. CURRENT MEDICATIONS Previous Medications No medications on file ALLERGIES Patient has no known allergies. FAMILY HISTORY No family history on file. SOCIAL HISTORY Social History Socioeconomic History Marital status: Single SCREENINGS PHYSICAL EXAM ED Triage Vitals [03/02/23 2330] Temp Heart Rate Resp BP 36.8 C (98.2 F) 88 16 (!) 136/96 SpO2 Temp src Heart Rate Source Patient Position 96 % -- -- -- BP Location FiO2 (%) -- -- Physical Exam Patient able to ambulate fingers. Sensation is intact distally to all laceration sites. Full range of motion of elbow. When I removed the current bandage there was a squirt of blood this was determined to be from a hematoma not an artery. No foreign bodies visualized in the sites. DIAGNOSTIC RESULTS RADIOLOGY (Per Emergency Physician): Interpretation per the Radiologist below, if available at the time of this note: XR elbow 3+ views right Final Result Soft tissue laceration. Report Dictated on Electronically Signed By: Kenyatta Mcguire MD Electronically Signed Date/Time: 03/03/2023 12:23 AM EDT XR hand 3+ views right Final Result Laceration of the little finger. Report Dictated on Electronically Signed By: Kenyatta Mcguire MD Electronically Signed Date/Time: 03/03/2023 12:37 AM EDT LABS: Labs Reviewed - No data to display All other labs were within normal range or not returned as of this dictation. EMERGENCY DEPARTMENT COURSE and DIFFERENTIAL DIAGNOSIS/MDM: Vitals: Vitals: 03/02/23 2330 03/02/23 2333 BP: (!) 136/96 Pulse: 88 Resp: 16 Temp: 36.8 C (98.2 F) SpO2: 96% 99% Weight: 86.2 kg (190 lb) Height: 1.753 m (5' 9 ) The patient presented with a chief complaint of lacerations. The differential diagnosis associated with this patient's presentation includes lacerations. Our workup consisted of ordering/reviewing x-ray to evaluate for foreign bodies suture kit for suturing. X-ray of hand and elbow state no foreign bodies however glass is difficult to see on x-ray. Procedure note performed patient was sutured patient was cleaned and sterile dressing was applied patient stated that he was going to deep sea fishing when advised him to used water proof bandages and to avoid getting in the water and discussed the risks of infection to the sites and have amputation could be a problem. Patient was discharged. Diagnoses as of 03/03/23 0254 Finger laceration, initial encounter Laceration of right upper extremity, initial encounter External records reviewed: none Diagnostics interpreted by me: Xray(s) as above Discussions with other clinicians: none Chronic conditions impacting care: none Social determinants of health affecting care: none ED Medications managed: Medications ondansetron (Zofran) 4 MG/2ML injection - Pyxis ADS Override Pull (has no administration in time range) tetanus-diphtheria toxoids (Td) (Tenivac 5-2) 5-2 LFU vaccine 0.5 mL (has no administration in time range) ondansetron (Zofran) injection 4 mg (has no administration in time range) sodium chloride 0.9 % bolus 1,000 mL (1,000 mL IntraVENous New Bag 03/03/23 0024) lidocaine-EPINEPHrine (Xylocaine W/EPI) 1 %-1:018565 injection 20 mL (20 mL Injection Given 03/03/23 0125) Prescription drugs considered: none PROCEDURES: Unless otherwise noted below, none Procedures FINAL IMPRESSION No diagnosis found. DISPOSITION PATIENT REFERRED TO: No follow-up provider specified. DISCHARGE MEDICATIONS: New Prescriptions No medications on file (Comment: Please note this report has been produced using speech recognition software and may contain errors related to that system including errors in grammar, punctuation, and spelling, as well as words and phrases that may be inappropriate. If there are any questions or concerns please feel free to contact the dictating provider for clarification.) Jose Jacques DO (electronically signed) Emergency Medicine Provider Jose Jacques DO Resident 03/03/23 0253 Emergency Department Encounter [facility] EMERGENCY DEPT Patient: Aly Bashir : 1990 Date of Evaluation: 03/02/2023 ED Supervising Physician: Anita Hutson MD I independently examined and evaluated Aly Bashir. This will serve as my Supervisory note as the indoor plant technician of record and shared attestation. I did perform a substantive portion of the visit including all aspects of the Medical Decision Making. I wore appropriate PPE for the entirety of this encounter. In brief, Aly Bashir is a 33 y.o. male that presents to the emergency department for multiple lacerations. Patient was drinking this evening and was trying to get into his house with a door when it opens he decided to punch a window with his right arm and cut his arm with glass. He sustained a large laceration to the posterior aspect of his elbow as well as 2 smaller lacerations to the fourth and fifth digits of his right hand. Denies any other injuries. Did not hit his head or lose consciousness. Unknown last tetanus. Focused exam: Intoxicated male in no acute distress. Vital signs are reviewed and unremarkable. About an 8 cm laceration to the posterior aspect of the right upper extremity next to the elbow. There is no tendon involvement. There is a hematoma that was bleeding which is since stopped. Skin tear and laceration to the dorsal aspect of the fourth digit on the right hand no active bleeding. 1 cm laceration to the dorsal aspect of the fifth digit of the right hand with no active bleeding. Neurovascularly intact. Normal sensation to the radial, ulnar and median nerve distributions of the right hand. Full range of motion of the DIP and PIP and MCP joints of the fourth and fifth digits as well as the wrist and elbow. Brief ED course/MDM: 33-year-old male present emergency department today for lacerations. He is afebrile and hemodynamically stable. He went punched a window tonight and sustained multiple lacerations to his right upper extremity. Bleeding was controlled here in the emergency department with a pressure dressing. X-rays were done and there is no foreign body. On exam there is no tendon involvement or nerve involvement or arterial involvement. He is neurovascularly intact and has full range of motion of his digits and his wrist and his elbow. Resident physician performed a laceration repair at the bedside with absorbable suture. I reviewed the repair and the patient has successful closure of his lacerations. We talked at length about return precautions and watching out for infections. Patient has a deep sea fishing trip coming up and we talked about trying to keep these wounds as clean and dry as possible especially around seawater and other fish. He verbalized understanding as well as his who is at the bedside. He understand that he should come back to the emergency department if there is any sign of infection. He is agreeable to this plan. He was given strict return precautions and discharged in stable condition. All diagnostic, treatment, and disposition decisions were made by myself in conjunction with the [facility]. For all further details of the patient's emergency department visit, please see their documentation. (Comment: Please note this report has been produced using speech recognition software and may contain errors related to that system including errors in grammar, punctuation, and spelling, as well as words and phrases that may be inappropriate. If there are any questions or concerns please feel free to contact the dictating provider for clarification.) Anita Hutson MD [employer] Anita Hutson MD 03/03/23 0431 documented in this encounter [facility] 03-03-2023 Hospital Discharg e instructions Jose Jacques DO - 03/03/2023 2:56 AM EDT Your sutures are dissolvable and do not need to be removed. They will fall out on their own. Watch for signs of infections at the sites. When you go deep see fishing, you must avoid the water. The following attachments cannot be sent through Care Everywhere.Laceration Repair With Stitches ED ([place])documented in this encounter [facility] 03-03-2023 Note Associated Order(s): Laceration Repair Procedure Laceration Repair Performed by: Jose Jacques DO Authorized by: Anita Hutson MD Consent: Consent obtained: Verbal Consent given by: Patient Risks, benefits, and alternatives were discussed: yes Risks discussed: Infection, tendon damage, vascular damage, poor wound healing and poor cosmetic result Alternatives discussed: No treatment [place] protocol: Procedure explained and questions answered to patient or proxy's satisfaction: yes Relevant documents present and verified: yes Test results available: no Imaging studies available: yes Required blood products, implants, devices, and special equipment available: no Site/side marked: no Immediately prior to procedure, a time out was called: no Patient identity confirmed: Verbally with patient and hospital-assigned identification number Anesthesia: Anesthesia method: Nerve block and local infiltration Local anesthetic: Lidocaine 1% WITH epi Block anesthetic: Lidocaine 1% WITH epi Block injection procedure: Incremental injection Block outcome: Anesthesia achieved Laceration details: Location: Shoulder/arm Shoulder/arm location: R upper arm Length (cm): 8 Depth (mm): 3 Pre-procedure details: Preparation: Patient was prepped and draped in usual sterile fashion and imaging obtained to evaluate for foreign bodies Exploration: Limited defect created (wound extended): yes Hemostasis achieved with: Epinephrine and direct pressure Imaging obtained: x-ray Imaging outcome: foreign body not noted Wound exploration: wound explored through full range of motion and entire depth of wound visualized Contaminated: yes Treatment: Area cleansed with: Povidone-iodine, Shur-Clens and saline Amount of cleaning: Extensive Irrigation solution: Sterile saline Irrigation method: Syringe Visualized foreign bodies/material removed: no Debridement: None Undermining: None Scar revision: no Skin repair: Repair method: Sutures Suture size: 4-0 and 5-0 Suture material: Prolene Suture technique: Simple interrupted and running Number of sutures: 11 Approximation: Approximation: Close Repair type: Repair type: Simple Post-procedure details: Dressing: Sterile dressing and non-adherent dressing Procedure completion: Tolerated well, no immediate complications Jose Jacques DO Resident 03/03/23 0247 [facility] 03-03-2023 Note Associated Order(s): Laceration Repair Procedure Laceration Repair Performed by: Jose Jacques DO Authorized by: Anita Hutson MD Consent: Consent obtained: Verbal Consent given by: Patient Risks, benefits, and alternatives were discussed: yes Risks discussed: Infection, tendon damage, vascular damage, poor wound healing and poor cosmetic result Alternatives discussed: No treatment [place] protocol: Procedure explained and questions answered to patient or proxy's satisfaction: yes Relevant documents present and verified: yes Test results available: no Imaging studies available: yes Required blood products, implants, devices, and special equipment available: no Site/side marked: no Immediately prior to procedure, a time out was called: no Patient identity confirmed: Verbally with patient and hospital-assigned identification number Anesthesia: Anesthesia method: Nerve block and local infiltration Local anesthetic: Lidocaine 1% WITH epi Block anesthetic: Lidocaine 1% WITH epi Block injection procedure: Incremental injection Block outcome: Anesthesia achieved Laceration details: Location: Shoulder/arm Shoulder/arm location: R upper arm Length (cm): 8 Depth (mm): 3 Pre-procedure details: Preparation: Patient was prepped and draped in usual sterile fashion and imaging obtained to evaluate for foreign bodies Exploration: Limited defect created (wound extended): yes Hemostasis achieved with: Epinephrine and direct pressure Imaging obtained: x-ray Imaging outcome: foreign body not noted Wound exploration: wound explored through full range of motion and entire depth of wound visualized Contaminated: yes Treatment: Area cleansed with: Povidone-iodine, Shur-Clens and saline Amount of cleaning: Extensive Irrigation solution: Sterile saline Irrigation method: Syringe Visualized foreign bodies/material removed: no Debridement: None Undermining: None Scar revision: no Skin repair: Repair method: Sutures Suture size: 4-0 and 5-0 Suture material: Prolene Suture technique: Simple interrupted and running Number of sutures: 11 Approximation: Approximation: Close Repair type: Repair type: Simple Post-procedure details: Dressing: Sterile dressing and non-adherent dressing Procedure completion: Tolerated well, no immediate complications Jose Jacques DO Resident 03/03/23 0247 [facility] 03-03-2023 Miscellaneous Notes Associated Order(s): Laceration Repair Procedure Laceration Repair Performed by: Jose Jacques DO Authorized by: Anita Hutson MD Consent: Consent obtained: Verbal Consent given by: Patient Risks, benefits, and alternatives were discussed: yes Risks discussed: Infection, tendon damage, vascular damage, poor wound healing and poor cosmetic result Alternatives discussed: No treatment [place] protocol: Procedure explained and questions answered to patient or proxy's satisfaction: yes Relevant documents present and verified: yes Test results available: no Imaging studies available: yes Required blood products, implants, devices, and special equipment available: no Site/side marked: no Immediately prior to procedure, a time out was called: no Patient identity confirmed: Verbally with patient and hospital-assigned identification number Anesthesia: Anesthesia method: Nerve block and local infiltration Local anesthetic: Lidocaine 1% WITH epi Block anesthetic: Lidocaine 1% WITH epi Block injection procedure: Incremental injection Block outcome: Anesthesia achieved Laceration details: Location: Shoulder/arm Shoulder/arm location: R upper arm Length (cm): 8 Depth (mm): 3 Pre-procedure details: Preparation: Patient was prepped and draped in usual sterile fashion and imaging obtained to evaluate for foreign bodies Exploration: Limited defect created (wound extended): yes Hemostasis achieved with: Epinephrine and direct pressure Imaging obtained: x-ray Imaging outcome: foreign body not noted Wound exploration: wound explored through full range of motion and entire depth of wound visualized Contaminated: yes Treatment: Area cleansed with: Povidone-iodine, Shur-Clens and saline Amount of cleaning: Extensive Irrigation solution: Sterile saline Irrigation method: Syringe Visualized foreign bodies/material removed: no Debridement: None Undermining: None Scar revision: no Skin repair: Repair method: Sutures Suture size: 4-0 and 5-0 Suture material: Prolene Suture technique: Simple interrupted and running Number of sutures: 11 Approximation: Approximation: Close Repair type: Repair type: Simple Post-procedure details: Dressing: Sterile dressing and non-adherent dressing Procedure completion: Tolerated well, no immediate complications Jose Jacques DO Resident 03/03/23 0247 documented in this encounter [facility] 03-02-2023 Physician Emergency department Note EMERGENCY DEPARTMENT ENCOUNTER Pt Name: Aly Bashir Birthdate 1990 Date of evaluation: 03/02/2023 ED Provider: Jose Jacques DO CHIEF COMPLAINT Chief Complaint Patient presents with Laceration Was drinking tonight and punched a couple windows. Lac to right elbow and fingers to right hand HISTORY OF PRESENT ILLNESS (Location/Symptom, Timing/Onset, Context/Setting, Quality, Duration, Modifying Factors, Severity) Note limiting factors. I wore appropriate PPE for the entirety of this encounter. HPI Aly Bashir is a 33 y.o. who presents to the emergency department laceration to right elbow and fingers on right hand. Alcohol use involved. No medical history in chart. Patient was intoxicated with alcohol when he arrived home and realized his door would not open so he decided to punch the windows with his right arm he punched a total of 3 window pains. He has a laceration to the posterior aspect of his elbow and 2 lacerations on his third and fourth finger between the DIP and PIP. Nursing Notes were reviewed. Limitations to history: None Outside historians: Significant other REVIEW OF SYSTEMS Review of Systems Pertinent positives and negatives as per HPI. PAST MEDICAL HISTORY No past medical history on file. SURGICAL HISTORY No past surgical history on file. CURRENT MEDICATIONS Previous Medications No medications on file ALLERGIES Patient has no known allergies. FAMILY HISTORY No family history on file. SOCIAL HISTORY Social History Socioeconomic History Marital status: Single SCREENINGS PHYSICAL EXAM ED Triage Vitals [03/02/232329] Temp Heart Rate Resp BP 36.8 C (98.2 F) 88 16 (!) 136/96 SpO2 Temp src Heart Rate Source Patient Position 96 % -- -- -- BP Location FiO2 (%) -- -- Physical Exam Patient able to ambulate fingers. Sensation is intact distally to all laceration sites. Full range of motion of elbow. When I removed the current bandage there was a squirt of blood this was determined to be from a hematoma not an artery. No foreign bodies visualized in the sites. DIAGNOSTIC RESULTS RADIOLOGY (Per Emergency Physician): Interpretation per the Radiologist below, if available at the time of this note: XR elbow 3+ views right Final Result Soft tissue laceration. Report Dictated on Electronically Signed By: Kenyatta Mcguire MD Electronically Signed Date/Time: 03/03/2023 12:23 AM EDT XR hand 3+ views right Final Result Laceration of the little finger. Report Dictated on Electronically Signed By: Kenyatat Mcguire MD Electronically Signed Date/Time: 03/03/2023 12:37 AM EDT LABS: Labs Reviewed - No data to display All other labs were within normal range or not returned as of this dictation. EMERGENCY DEPARTMENT COURSE and DIFFERENTIAL DIAGNOSIS/MDM: Vitals: Vitals: 03/02/23 2330 03/02/232332 BP: (!) 136/96 Pulse: 88 Resp: 16 Temp: 36.8 C (98.2 F) SpO2: 96% 99% Weight: 86.2 kg (190 lb) Height: 1.753 m (5' 9 ) The patient presented with a chief complaint of lacerations. The differential diagnosis associated with this patient's presentation includes lacerations. Our workup consisted of ordering/reviewing x-ray to evaluate for foreign bodies suture kit for suturing. X-ray of hand and elbow state no foreign bodies however glass is difficult to see on x-ray. Procedure note performed patient was sutured patient was cleaned and sterile dressing was applied patient stated that he was going to deep sea fishing when advised him to used water proof bandages and to avoid getting in the water and discussed the risks of infection to the sites and have amputation could be a problem. Patient was discharged. Diagnoses as of 03/03/23253 Finger laceration, initial encounter Laceration of right upper extremity, initial encounter External records reviewed: none Diagnostics interpreted by me: Joviay(s) as above Discussions with other clinicians: none Chronic conditions impacting care: none Social determinants of health affecting care: none ED Medications managed: Medications ondansetron (Zofran) 4 MG/2ML injection - Pyxis ADS Override Pull (has no administration in time range) tetanus-diphtheria toxoids (Td) (Tenivac 5-2) 5-2 LFU vaccine 0.5 mL (has no administration in time range) ondansetron (Zofran) injection 4 mg (has no administration in time range) sodium chloride 0.9 % bolus 1,000 mL (1,000 mL IntraVENous New Bag 03/03/23 0024) lidocaine-EPINEPHrine (Xylocaine W/EPI) 1 %-1:236650 injection 20 mL (20 mL Injection Given 03/03/23 0125) Prescription drugs considered: none PROCEDURES: Unless otherwise noted below, none Procedures FINAL IMPRESSION No diagnosis found. DISPOSITION PATIENT REFERRED TO: No follow-up provider specified. DISCHARGE MEDICATIONS: New Prescriptions No medications on file (Comment: Please note this report has been produced using speech recognition software and may contain errors related to that system including errors in grammar, punctuation, and spelling, as well as words and phrases that may be inappropriate. If there are any questions or concerns please feel free to contact the dictating provider for clarification.) Jose Jacques DO (electronically signed) Emergency Medicine Provider Jose Jacques DO Resident 03/03/23252 T [facility] 03-02-2023 Physician Emergency department Note Emergency Department Encounter [facility] EMERGENCY DEPT Patient: Aly Bashir : 1990 Date of Evaluation: 03/02/2023 ED Supervising Physician: Anita Hutson MD I independently examined and evaluated Aly Bashir. This will serve as my Supervisory note as the indoor plant technician of record and shared attestation. I did perform a substantive portion of the visit including all aspects of the Medical Decision Making. I wore appropriate PPE for the entirety of this encounter. In brief, Aly Bashir is a 33 y.o. male that presents to the emergency department for multiple lacerations. Patient was drinking this evening and was trying to get into his house with a door when it opens he decided to punch a window with his right arm and cut his arm with glass. He sustained a large laceration to the posterior aspect of his elbow as well as 2 smaller lacerations to the fourth and fifth digits of his right hand. Denies any other injuries. Did not hit his head or lose consciousness. Unknown last tetanus. Focused exam: Intoxicated male in no acute distress. Vital signs are reviewed and unremarkable. About an 8 cm laceration to the posterior aspect of the right upper extremity next to the elbow. There is no tendon involvement. There is a hematoma that was bleeding which is since stopped. Skin tear and laceration to the dorsal aspect of the fourth digit on the right hand no active bleeding. 1 cm laceration to the dorsal aspect of the fifth digit of the right hand with no active bleeding. Neurovascularly intact. Normal sensation to the radial, ulnar and median nerve distributions of the right hand. Full range of motion of the DIP and PIP and MCP joints of the fourth and fifth digits as well as the wrist and elbow. Brief ED course/MDM: 33-year-old male present emergency department today for lacerations. He is afebrile and hemodynamically stable. He went punched a window tonight and sustained multiple lacerations to his right upper extremity. Bleeding was controlled here in the emergency department with a pressure dressing. X-rays were done and there is no foreign body. On exam there is no tendon involvement or nerve involvement or arterial involvement. He is neurovascularly intact and has full range of motion of his digits and his wrist and his elbow. Resident physician performed a laceration repair at the bedside with absorbable suture. I reviewed the repair and the patient has successful closure of his lacerations. We talked at length about return precautions and watching out for infections. Patient has a deep sea fishing trip coming up and we talked about trying to keep these wounds as clean and dry as possible especially around seawater and other fish. He verbalized understanding as well as his who is at the bedside. He understand that he should come back to the emergency department if there is any sign of infection. He is agreeable to this plan. He was given strict return precautions and discharged in stable condition. All diagnostic, treatment, and disposition decisions were made by myself in conjunction with the [facility]. For all further details of the patient's emergency department visit, please see their documentation. (Comment: Please note this report has been produced using speech recognition software and may contain errors related to that system including errors in grammar, punctuation, and spelling, as well as words and phrases that may be inappropriate. If there are any questions or concerns please feel free to contact the dictating provider for clarification.) Anita Hutson MD [facility] Anita Hutson MD 03/03/23 [id number] [employer] Phone: 03-02-2023 Miscellaneous Notes Patient electronically requesting refills as follows: Last seen 01/13/23 . Last refill 03/18/22 . Requested Prescriptions Pending Prescriptions Disp Refills valACYclovir (VALTREX) 1 gram 90 tablet 3 Sig: Take 1 tablet by mouth once daily. Please review and advise. Xiomara Henson MA documented in this encounter [facility] 02-26-2023 Note HNO ID: [id number] Author: Nancy Ba RT(R) Service: Radiology Author Type: Technologist Type: Progress Notes Filed: 02/26/2023 3:06 PM Note Text: Radiology Service Progress Note DATE OF SERVICE: February 26, 2023 TIME: 3:04 PM PATIENT IDENTITY VERIFICATION COMPLETED USING TWO (2) STANDARD IDENTIFIERS: Name and Date of confirmed by patient verbally and Name and Date of confirmed by identification band. FALL SCREENING: Has the patient had 2 falls in the last year or 1 fall with injury or currently using an Ambulatory Assistive Device (Walker, Cane, Wheelchair, Crutches, etc.)? No PATIENT GENDER DATA: Male PATIENT RELEVANT IMPLANT DATA REVIEWED: Yes ALLERGIES: Reviewed and unchanged CONTRAST ALLERGY: NO. EXAM: MRI - CONTRAST TYPE: GROUP II PERIPHERAL IV DATA: Ambulatory: A peripheral IV was started in the Right antecubital site with a Angio cath: 22 gauge. RADIOLOGY DEPARTMENT: MR; Exam(s) Completed: Cardiac: Cardiac SIGNATURE: RT Rhea(R) PATIENT NAME: Aly Bashir DATE: February 26, 2023 TIME: 3:04 PM [facility] 02-26-2023 History of Presen t illness Narrative Radiology Service Progress Note DATE OF SERVICE: February 26, 2023 TIME: 3:04 PM PATIENT IDENTITY VERIFICATION COMPLETED USING TWO (2) STANDARD IDENTIFIERS: Name and Date of confirmed by patient verbally and Name and Date of confirmed by identification band. FALL SCREENING: Has the patient had 2 falls in the last year or 1 fall with injury or currently using an Ambulatory Assistive Device (Walker, Cane, Wheelchair, Crutches, etc.)? No PATIENT GENDER DATA: Male PATIENT RELEVANT IMPLANT DATA REVIEWED: Yes ALLERGIES: Reviewed and unchanged CONTRAST ALLERGY: NO. EXAM: MRI - CONTRAST TYPE: GROUP II PERIPHERAL IV DATA: Ambulatory: A peripheral IV was started in the Right antecubital site with a Angio cath: 22 gauge. RADIOLOGY DEPARTMENT: MR; Exam(s) Completed: Cardiac: Cardiac SIGNATURE: RT Rhea(R) PATIENT NAME: Aly Bashir DATE: February 26, 2023 TIME: 3:04 PM documented in this encounter [facility] 01-13-2023 Note HNO ID: [id number] Author: Alfred Estrada APRN.SURFACE SUPERVISOR Service: ? Author Type: Nurse Practitioner Type: Progress Notes Filed: 01/19/2023 10:08 PM Note Text: This note was created using NoteWriter. Subjective Aly Bashir is a 32 year old male here today for hypertension follow-up visit. I reviewed past medical, surgical, social, and family histories today and updated chart. Allergies, chronic medications, and supplements were also reviewed. Feeling well today. Denies chest pains, palpitations, headache, dizziness, leg swelling, and vision changes. Diet - healthy for the most part Caffeine - cut out caffeine Sleeping better Anxiety has been better Exercise - everyday Tobacco use - none Alcohol use - rarely, if he drinks no more than 2 drinks Medication compliance - Not currently on BP medications Home blood pressure readings - 118/83 Right arm reading always higher than left arm Right arm feels tight/pressure Able to relax left arm Sees kindergartner tomorrow PAST MEDICAL HISTORY Diagnosis Date Attention deficit disorder without mention of hyperactivity medication as child Genital herpes 12/26/2010 Tourette's disorder As a child PAST SURGICAL HISTORY Procedure Laterality Date NONE ALLERGIES Patient has no known allergies. MEDICATIONS busPIRone (BUSPAR) 5 mg tablet TAKE 1 TABLET BY MOUTH THREE TIMES A DAY valACYclovir (VALTREX) 1 gram Take 1 tablet by mouth once daily. FAMILY HISTORY Problem Relation Age of Onset No Known Problems Mother Diabetes Father Hypertension Father Hyperlipidemia Father No Known Problems Brother No Known Problems Brother Stroke Maternal Grandmother No Known Problems Maternal Grandfather Hypertension Paternal Grandmother Diabetes Paternal Grandfather Social History Tobacco Use Smoking status: Never Smokeless tobacco: Never Tobacco comments: mom smokes Vaping Use Vaping Use: Never used Substance Use Topics Alcohol use: Yes Alcohol/week: 6.0 standard drinks of alcohol Types: 6 Cans of Beer (12oz) per week Comment: rarely Drug use: No Review of Systems Constitutional: Negative for appetite change, chills, fatigue, fever and unexpected weight change. HENT: Negative for congestion, ear pain, rhinorrhea and sore throat. Eyes: Negative for pain, discharge, itching and visual disturbance. Respiratory: Negative for cough, shortness of breath and wheezing. Cardiovascular: Negative for chest pain, palpitations and leg swelling. Gastrointestinal: Negative for abdominal pain, constipation, diarrhea, nausea and vomiting. Genitourinary: Negative for difficulty urinating. Musculoskeletal: Negative for arthralgias. Skin: Negative for rash. Neurological: Negative for dizziness, tremors, weakness and headaches. Psychiatric/Behavioral: Negative for dysphoric mood and sleep disturbance. The patient is nervous/anxious. Anxiety is improving, feels buspar helps Objective BP 118/90 Pulse 72 Temp 36.8 ?C (98.2 ?F) Ht 177.2 cm (5' 9.75 ) Wt 86.6 kg (191 lb) SpO2 96% BMI 27.60 kg/m? Right arm 128/98 Physical Exam Constitutional: Appearance: Normal appearance. He is well-developed. He is not diaphoretic. HENT: Head: Normocephalic and atraumatic. Right Ear: Hearing, tympanic membrane, ear canal and external ear normal. Left Ear: Hearing, tympanic membrane, ear canal and external ear normal. Nose: Nose normal. Mouth/Throat: Lips: [place]. Mouth: Mucous membranes are moist. Pharynx: Oropharynx is clear. Eyes: General: Lids are normal. Conjunctiva/sclera: Conjunctivae normal. Pupils: Pupils are equal, round, and reactive to light. Neck: Vascular: Normal carotid pulses. No carotid bruit or JVD. Cardiovascular: Rate and Rhythm: Normal rate and regular rhythm. Pulses: Carotid pulses are 2+ on the right side and 2+ on the left side. Radial pulses are 2+ on the right side and 2+ on the left side. Dorsalis pedis pulses are 2+ on the right side and 2+ on the left side. Heart sounds: Normal heart sounds. No murmur heard. Pulmonary: Effort: Pulmonary effort is normal. Breath sounds: Normal breath sounds. No wheezing, rhonchi or rales. Abdominal: General: Bowel sounds are normal. Palpations: Abdomen is soft. Tenderness: There is no abdominal tenderness. Musculoskeletal: General: Normal range of motion. Cervical back: Normal range of motion and neck supple. Right lower leg: No edema. Left lower leg: No edema. Lymphadenopathy: Cervical: No cervical adenopathy. Skin: General: Skin is warm and dry. Findings: No rash. Neurological: General: No focal deficit present. Mental Status: He is alert and oriented to person, place, and time. Cranial Nerves: No cranial nerve deficit. Sensory: Sensation is intact. Motor: Motor function is intact. Coordination: Coordination is intact. Gait: Gait is intact. Psychiatric: Attention and Perception: Attention a (more content not included)... [facility] 01-13-2023 History of Presen t illness Narrative This note was created using IndiaIdeasriter. Subjective Aly Bashir is a 32 year old male here today for hypertension follow-up visit. I reviewed past medical, surgical, social, and family histories today and updated chart. Allergies, chronic medications, and supplements were also reviewed. Feeling well today. Denies chest pains, palpitations, headache, dizziness, leg swelling, and vision changes. Diet - healthy for the most part Caffeine - cut out caffeine Sleeping better Anxiety has been better Exercise - everyday Tobacco use - none Alcohol use - rarely, if he drinks no more than 2 drinks Medication compliance - Not currently on BP medications Home blood pressure readings - 118/83 Right arm reading always higher than left arm Right arm feels tight/pressure Able to relax left arm Sees kindergartner tomorrow PAST MEDICAL HISTORY Diagnosis Date Attention deficit disorder without mention of hyperactivity medication as child Genital herpes 12/26/2010 Tourette's disorder As a child PAST SURGICAL HISTORY Procedure Laterality Date NONE ALLERGIES Patient has no known allergies. MEDICATIONS busPIRone (BUSPAR) 5 mg tablet TAKE 1 TABLET BY MOUTH THREE TIMES A DAY valACYclovir (VALTREX) 1 gram Take 1 tablet by mouth once daily. FAMILY HISTORY Problem Relation Age of Onset No Known Problems Mother Diabetes Father Hypertension Father Hyperlipidemia Father No Known Problems Brother No Known Problems Brother Stroke Maternal Grandmother No Known Problems Maternal Grandfather Hypertension Paternal Grandmother Diabetes Paternal Grandfather Social History Tobacco Use Smoking status: Never Smokeless tobacco: Never Tobacco comments: mom smokes Vaping Use Vaping Use: Never used Substance Use Topics Alcohol use: Yes Alcohol/week: 6.0 standard drinks of alcohol Types: 6 Cans of Beer (12oz) per week Comment: rarely Drug use: No Review of Systems Constitutional: Negative for appetite change, chills, fatigue, fever and unexpected weight change. HENT: Negative for congestion, ear pain, rhinorrhea and sore throat. Eyes: Negative for pain, discharge, itching and visual disturbance. Respiratory: Negative for cough, shortness of breath and wheezing. Cardiovascular: Negative for chest pain, palpitations and leg swelling. Gastrointestinal: Negative for abdominal pain, constipation, diarrhea, nausea and vomiting. Genitourinary: Negative for difficulty urinating. Musculoskeletal: Negative for arthralgias. Skin: Negative for rash. Neurological: Negative for dizziness, tremors, weakness and headaches. Psychiatric/Behavioral: Negative for dysphoric mood and sleep disturbance. The patient is nervous/anxious. Anxiety is improving, feels buspar helps Objective BP 118/90 Pulse 72 Temp 36.8 C (98.2 F) Ht 177.2 cm (5' 9.75 ) Wt 86.6 kg (191 lb) SpO2 96% BMI 27.60 kg/m Right arm 128/98 Physical Exam Constitutional: Appearance: Normal appearance. He is well-developed. He is not diaphoretic. HENT: Head: Normocephalic and atraumatic. Right Ear: Hearing, tympanic membrane, ear canal and external ear normal. Left Ear: Hearing, tympanic membrane, ear canal and external ear normal. Nose: Nose normal. Mouth/Throat: Lips: [place]. Mouth: Mucous membranes are moist. Pharynx: Oropharynx is clear. Eyes: General: Lids are normal. Conjunctiva/sclera: Conjunctivae normal. Pupils: Pupils are equal, round, and reactive to light. Neck: Vascular: Normal carotid pulses. No carotid bruit or JVD. Cardiovascular: Rate and Rhythm: Normal rate and regular rhythm. Pulses: Carotid pulses are 2+ on the right side and 2+ on the left side. Radial pulses are 2+ on the right side and 2+ on the left side. Dorsalis pedis pulses are 2+ on the right side and 2+ on the left side. Heart sounds: Normal heart sounds. No murmur heard. Pulmonary: Effort: Pulmonary effort is normal. Breath sounds: Normal breath sounds. No wheezing, rhonchi or rales. Abdominal: General: Bowel sounds are normal. Palpations: Abdomen is soft. Tenderness: There is no abdominal tenderness. Musculoskeletal: General: Normal range of motion. Cervical back: Normal range of motion and neck supple. Right lower leg: No edema. Left lower leg: No edema. Lymphadenopathy: Cervical: No cervical adenopathy. Skin: General: Skin is warm and dry. Findings: No rash. Neurological: General: No focal deficit present. Mental Status: He is alert and oriented to person, place, and time. Cranial Nerves: No cranial nerve deficit. Sensory: Sensation is intact. Motor: Motor function is intact. Coordination: Coordination is intact. Gait: Gait is intact. Psychiatric: Attention and Perception: Attention and perception normal. Mood and Affect: Mood and affect normal. Speech: Speech normal. Behavior: Behavior normal. Behavior is cooperative. Thought Content: Thought content normal. Judgment: Judgment normal. Component Latest Ref Rng & Units 07/30/2021 06/18/2022 WBC 3.70 - 11.00 k/uL 5.47 6.90 RBC 4.20 - 6.00 m/uL 5.44 5.43 Hemoglobin 13.0 - 17.0 g/dL 16.6 16.6 Hematocrit 39.0 - 51.0 % 50.3 48.6 MCV 80.0 - 100.0 fL 92.5 89.5 MCH 26.0 - 34.0 pg 30.5 30.6 MCHC 30.5 - 36.0 g/dL 33.0 34.2 RDW-CV 11.5 - 15.0 % 11.9 11.3 (L) Platelet Count 150 - 400 k/uL 275 261 MPV 9.0 - 12.7 fL 10.1 9.9 Neut% % 47.0 Abs Neut (ANC) 1.45 - 7.50 k/uL 2.56 Lymph% % 41.5 Abs Lymph 1.00 - 4.00 k/uL 2.27 Brooks% % 8.8 Abs Brooks <0.87 k/uL 0.48 Eosin% % 1.6 Abs Eosin <0.46 k/uL 0.09 Baso% % 1.1 Abs Baso <0.11 k/uL 0.06 Nucleated Reds 0 /100 WBC 0.0 Absolute nRBC <0.01 k/uL <0.01 Diff Type Auto Diff Protein, Total 6.3 - 8.0 g/dL 7.5 7.7 Albumin 3.9 - 4.9 g/dL 4.8 5.0 (H) Calcium 8.5 - 10.2 mg/dL 10.1 9.8 Bilirubin, Total 0.2 - 1.3 mg/dL 0.8 0.7 Alkaline Phosphatase 38 - 113 U/L 47 49 AST 14 - 40 U/L 26 24 Glucose 74 - 99 mg/dL 89 89 BUN 9 - 24 mg/dL 19 19 Creatinine 0.73 - 1.22 mg/dL 1.03 1.03 Sodium 136 - 144 mmol/L 139 138 Potassium 3.7 - 5.1 mmol/L 4.3 4.5 Chloride 97 - 105 mmol/L 103 100 CO2 22 - 30 mmol/L 26 30 Anion Gap 9 - 18 mmol/L 10 8 (L) ALT 10 - 54 U/L 32 44 eGFR- >60 eGFR-All Other Races . >60 eGFR >=60 mL/min/1.73m 99 Color Yellow Yellow Clarity Clear Clear Glucose, Urine Negative Negative Bilirubin, Urine Negative Negative Ketones, Urine Trace, Negative Negative Specific Phelps, Ur 1.005 - 1.030 1.020 Hemoglobin/Blood,Ur Negative, Trace Negative pH, Urine 5.0 - 8.0 7.0 Protein, Urine Negative Negative Urobilinogen 0.2-1.0 EU/dL 0.2 EU/dL Nitrites Negative Negative Leukest Negative Negative WBC, Urine 0-5 /HPF 0-5 /HPF RBC, Urine 0-3 /HPF 0-3 /HPF Cholesterol, Total <200 mg/dL 205 (H) 234 (H) Triglyceride <150 mg/dL 146 264 (H) HDL Cholesterol >39 mg/dL 40 39 (L) LDL Cholesterol <100 mg/dL 136 (H) 142 (H) Non HDL Cholesterol <130 mg/dL 165 (H) 195 (H) Fasting Time hrs 12 12 VLDL Cholesterol <30 mg/dL 29 53 (H) TC:HDL Ratio <5.10 5.13 (H) 6.00 (H) LDL:HDL Ratio <2.54 3.40 (H) 3.64 (H) TSH 0.270 - 4.200 mIU/L 2.820 ASSESSMENT/PLAN: 1. Primary hypertension - ICD9: 401.9, ICD10: I10 (primary diagnosis) - Home blood pressure readings controlled - Improving control - Recommend home blood pressure monitoring, to bring results to next visit - Encouraged sodium restriction, DASH or Mediterranean diet - Recommend regular aerobic exercise 2. RADAH (generalized anxiety disorder) - ICD9: 300.02, ICD10: F41.1 Continue Buspar 5 mg TID 3. Hyperlipidemia, unspecified hyperlipidemia type - ICD9: 272.4, ICD10: E78.5 - Control undetermined, due for labs - Counseled on healthy diet and regular exercise FU 3 months Alfred Estrada APRN.MARCELLE documented in this encounter [facility] 12-19-2022 Miscellaneous Notes [place] on with all information. Lauren Nieves MA Thank you. Please see orders. Alfred Estrada APRN.CNP ----- Message from Ivone Briggs MA sent at 06/19/2022 9:15 AM EST ----- Recheck cholesterol in 6 months documented in this encounter [facility] 10-24-2022 Miscellaneous Notes CMR Protocol needed for this outpatient scheduled on 11/10/22. Order and Echo report in Scanned Documents 08/14/22. Thank you documented in this encounter [facility] 07-16-2022 Note HNO ID: [id number] Author: Alfred Estrada APRN.CNP Service: ? Author Type: Nurse Practitioner Type: Progress Notes Filed: 07/16/2022 9:50 AM Note Text: This note was created using IndiaIdeasriter. Subjective Aly Bashir is a 32 year old male here today for well adult visit. I reviewed past medical, surgical, social, and family histories today and updated chart. Allergies, chronic medications, and supplements were also reviewed. Last seen for anxiety Feeling much better on the Buspar Gets mild headaches and dizziness but has been able to tolerate it and wants to continue the Buspar Sleep is much better Preventative Health: Prostate cancer screening - n/a Colorectal cancer screening - n/a Lipid screening - June 2022 Immunizations - all up to date with the Elevated cholesterol - he may not have been fasting as long as he should have, He was eating throughout the night He had appt set up with kindergartner next week He has been checking his BP at home - gets high readings but on the recheck it will be normal PAST MEDICAL HISTORY Diagnosis Date Attention deficit disorder without mention of hyperactivity medication as child Genital herpes 12/26/2010 Tourette's disorder As a child PAST SURGICAL HISTORY Procedure Laterality Date NONE ALLERGIES Patient has no known allergies. MEDICATIONS busPIRone (BUSPAR) 5 mg tablet TAKE 1 TABLET BY MOUTH THREE TIMES A DAY valACYclovir (VALTREX) 1 gram Take 1 tablet by mouth once daily. FAMILY HISTORY Problem Relation Age of Onset No Known Problems Mother Diabetes Father Hypertension Father Hyperlipidemia Father No Known Problems Brother No Known Problems Brother Stroke Maternal Grandmother No Known Problems Maternal Grandfather Hypertension Paternal Grandmother Diabetes Paternal Grandfather Social History Tobacco Use Smoking status: Never Smokeless tobacco: Never Tobacco comments: mom smokes Vaping Use Vaping Use: Never used Substance Use Topics Alcohol use: Yes Alcohol/week: 6.0 standard drinks Types: 6 Cans of Beer (12oz) per week Comment: rarely Drug use: No Review of Systems Constitutional: Negative for appetite change, chills, fatigue, fever and unexpected weight change. HENT: Negative for congestion, ear pain, rhinorrhea and sore throat. Eyes: Negative for pain, discharge, itching and visual disturbance. Respiratory: Negative for cough, shortness of breath and wheezing. Cardiovascular: Negative for chest pain, palpitations and leg swelling. Gastrointestinal: Negative for abdominal pain, constipation, diarrhea, nausea and vomiting. Genitourinary: Negative for difficulty urinating. Musculoskeletal: Negative for arthralgias. Skin: Negative for rash. Neurological: Negative for dizziness, tremors, weakness and headaches. Psychiatric/Behavioral: Negative for dysphoric mood and sleep disturbance. The patient is not nervous/anxious. Objective BP 124/76 Pulse 73 Temp 36.7 ?C (98 ?F) Ht 177.2 cm (5' 9.75 ) Wt 88.9 kg (196 lb) SpO2 96% BMI 28.33 kg/m? Physical Exam Constitutional: Appearance: Normal appearance. He is well-developed. HENT: Head: Normocephalic and atraumatic. Right Ear: Hearing, tympanic membrane, ear canal and external ear normal. No drainage. Left Ear: Hearing, tympanic membrane, ear canal and external ear normal. No drainage. Nose: Nose normal. Mouth/Throat: Lips: [place]. Mouth: Mucous membranes are moist. Pharynx: Oropharynx is clear. Tonsils: 2+ on the right. 2+ on the left. Eyes: General: Lids are normal. Right eye: No discharge. Left eye: No discharge. Conjunctiva/sclera: Conjunctivae normal. Pupils: Pupils are equal, round, and reactive to light. Neck: Thyroid: No thyromegaly. Vascular: No carotid bruit. Trachea: No tracheal deviation. Cardiovascular: Rate and Rhythm: Normal rate and regular rhythm. Heart sounds: Normal heart sounds. No murmur heard. Pulmonary: Effort: Pulmonary effort is normal. Breath sounds: Normal breath sounds. No wheezing, rhonchi or rales. Abdominal: General: Bowel sounds are normal. There is no distension or abdominal bruit. Palpations: Abdomen is soft. There is no mass. Tenderness: There is no abdominal tenderness. Musculoskeletal: Cervical back: Normal range of motion and neck supple. Right lower leg: No edema. Left lower leg: No edema. Lymphadenopathy: Cervical: No cervical adenopathy. Upper Body: Right upper body: No supraclavicular adenopathy. Left upper body: No supraclavicular adenopathy. Skin: General: Skin is warm and dry. Findings: No bruising or rash. Neurological: General: No focal deficit present. Mental Status: He is alert and oriented to person, place, and time. Cranial Nerves: No cranial nerve deficit. Sensory: Sensation is intact. Motor: Motor function is intact. Coordination: Coordination is intact. Gait: Gait is intact. (more content not included)... [facility] 07-16-2022 History of Presen t illness Narrative This note was created using [employer]. Subjective Aly Bashir is a 32 year old male here today for well adult visit. I reviewed past medical, surgical, social, and family histories today and updated chart. Allergies, chronic medications, and supplements were also reviewed. Last seen for anxiety Feeling much better on the Buspar Gets mild headaches and dizziness but has been able to tolerate it and wants to continue the Buspar Sleep is much better Preventative Health: Prostate cancer screening - n/a Colorectal cancer screening - n/a Lipid screening - June 2022 Immunizations - all up to date with the Elevated cholesterol - he may not have been fasting as long as he should have, He was eating throughout the night He had appt set up with kindergartner next week He has been checking his BP at home - gets high readings but on the recheck it will be normal PAST MEDICAL HISTORY Diagnosis Date Attention deficit disorder without mention of hyperactivity medication as child Genital herpes 12/26/2010 Tourette's disorder As a child PAST SURGICAL HISTORY Procedure Laterality Date NONE ALLERGIES Patient has no known allergies. MEDICATIONS busPIRone (BUSPAR) 5 mg tablet TAKE 1 TABLET BY MOUTH THREE TIMES A DAY valACYclovir (VALTREX) 1 gram Take 1 tablet by mouth once daily. FAMILY HISTORY Problem Relation Age of Onset No Known Problems Mother Diabetes Father Hypertension Father Hyperlipidemia Father No Known Problems Brother No Known Problems Brother Stroke Maternal Grandmother No Known Problems Maternal Grandfather Hypertension Paternal Grandmother Diabetes Paternal Grandfather Social History Tobacco Use Smoking status: Never Smokeless tobacco: Never Tobacco comments: mom smokes Vaping Use Vaping Use: Never used Substance Use Topics Alcohol use: Yes Alcohol/week: 6.0 standard drinks Types: 6 Cans of Beer (12oz) per week Comment: rarely Drug use: No Review of Systems Constitutional: Negative for appetite change, chills, fatigue, fever and unexpected weight change. HENT: Negative for congestion, ear pain, rhinorrhea and sore throat. Eyes: Negative for pain, discharge, itching and visual disturbance. Respiratory: Negative for cough, shortness of breath and wheezing. Cardiovascular: Negative for chest pain, palpitations and leg swelling. Gastrointestinal: Negative for abdominal pain, constipation, diarrhea, nausea and vomiting. Genitourinary: Negative for difficulty urinating. Musculoskeletal: Negative for arthralgias. Skin: Negative for rash. Neurological: Negative for dizziness, tremors, weakness and headaches. Psychiatric/Behavioral: Negative for dysphoric mood and sleep disturbance. The patient is not nervous/anxious. Objective BP 124/76 Pulse 73 Temp 36.7 C (98 F) Ht 177.2 cm (5' 9.75 ) Wt 88.9 kg (196 lb) SpO2 96% BMI 28.33 kg/m Physical Exam Constitutional: Appearance: Normal appearance. He is well-developed. HENT: Head: Normocephalic and atraumatic. Right Ear: Hearing, tympanic membrane, ear canal and external ear normal. No drainage. Left Ear: Hearing, tympanic membrane, ear canal and external ear normal. No drainage. Nose: Nose normal. Mouth/Throat: Lips: [place]. Mouth: Mucous membranes are moist. Pharynx: Oropharynx is clear. Tonsils: 2+ on the right. 2+ on the left. Eyes: General: Lids are normal. Right eye: No discharge. Left eye: No discharge. Conjunctiva/sclera: Conjunctivae normal. Pupils: Pupils are equal, round, and reactive to light. Neck: Thyroid: No thyromegaly. Vascular: No carotid bruit. Trachea: No tracheal deviation. Cardiovascular: Rate and Rhythm: Normal rate and regular rhythm. Heart sounds: Normal heart sounds. No murmur heard. Pulmonary: Effort: Pulmonary effort is normal. Breath sounds: Normal breath sounds. No wheezing, rhonchi or rales. Abdominal: General: Bowel sounds are normal. There is no distension or abdominal bruit. Palpations: Abdomen is soft. There is no mass. Tenderness: There is no abdominal tenderness. Musculoskeletal: Cervical back: Normal range of motion and neck supple. Right lower leg: No edema. Left lower leg: No edema. Lymphadenopathy: Cervical: No cervical adenopathy. Upper Body: Right upper body: No supraclavicular adenopathy. Left upper body: No supraclavicular adenopathy. Skin: General: Skin is warm and dry. Findings: No bruising or rash. Neurological: General: No focal deficit present. Mental Status: He is alert and oriented to person, place, and time. Cranial Nerves: No cranial nerve deficit. Sensory: Sensation is intact. Motor: Motor function is intact. Coordination: Coordination is intact. Gait: Gait is intact. Deep Tendon Reflexes: Reflexes are normal and symmetric. Reflex Scores: Patellar reflexes are 2+ on the right side and 2+ on the left side. Psychiatric: Mood and Affect: Mood normal. Behavior: Behavior normal. Behavior is cooperative. Thought Content: Thought content normal. Judgment: Judgment normal. Component Latest Ref Rng & Units 06/18/2022 Protein, Total 6.3 - 8.0 g/dL 7.7 Albumin 3.9 - 4.9 g/dL 5.0 (H) Calcium 8.5 - 10.2 mg/dL 9.8 Bilirubin, Total 0.2 - 1.3 mg/dL 0.7 Alkaline Phosphatase 38 - 113 U/L 49 AST 14 - 40 U/L 24 ALT 10 - 54 U/L 44 Glucose 74 - 99 mg/dL 89 BUN 9 - 24 mg/dL 19 Creatinine 0.73 - 1.22 mg/dL 1.03 Sodium 136 - 144 mmol/L 138 Potassium 3.7 - 5.1 mmol/L 4.5 Chloride 97 - 105 mmol/L 100 CO2 22 - 30 mmol/L 30 Anion Gap 9 - 18 mmol/L 8 (L) eGFR >=60 mL/min/1.73m 99 Color Yellow Yellow Clarity Clear Clear Glucose, Urine Negative Negative Bilirubin, Urine Negative Negative Ketones, Urine Trace, Negative Negative Specific Phelps, Ur 1.005 - 1.030 1.020 Hemoglobin/Blood,Ur Negative, Trace Negative pH, Urine 5.0 - 8.0 7.0 Protein, Urine Negative Negative Urobilinogen 0.2-1.0 EU/dL 0.2 EU/dL Nitrites Negative Negative Leukest Negative Negative WBC, Urine 0-5 /HPF 0-5 /HPF RBC, Urine 0-3 /HPF 0-3 /HPF WBC 3.70 - 11.00 k/uL 6.90 RBC 4.20 - 6.00 m/uL 5.43 Hemoglobin 13.0 - 17.0 g/dL 16.6 Hematocrit 39.0 - 51.0 % 48.6 MCV 80.0 - 100.0 fL 89.5 MCH 26.0 - 34.0 pg 30.6 MCHC 30.5 - 36.0 g/dL 34.2 RDW-CV 11.5 - 15.0 % 11.3 (L) Platelet Count 150 - 400 k/uL 261 MPV 9.0 - 12.7 fL 9.9 Cholesterol, Total <200 mg/dL 234 (H) Triglyceride <150 mg/dL 264 (H) HDL Cholesterol >39 mg/dL 39 (L) Non HDL Cholesterol <130 mg/dL 195 (H) Fasting Time hrs 12 VLDL Cholesterol <30 mg/dL 53 (H) TC:HDL Ratio <5.10 6.00 (H) LDL Cholesterol <100 mg/dL 142 (H) LDL:HDL Ratio <2.54 3.64 (H) TSH 0.270 - 4.200 mIU/L 2.820 ASSESSMENT/PLAN: 1. Well adult exam - ICD9: V70.0, ICD10: Z00.00 (primary diagnosis) - Counseled on healthy diet and regular exercise - Follow up for annual exam in one year 2. RADHA (generalized anxiety disorder) - ICD9: 300.02, ICD10: F41.1 Greatly improved with Buspar 5 mg TID FU in about 6 months 3. Hyperlipidemia, mixed - ICD9: 272.2, ICD10: E78.2 - newly diagnosed No medication at this time - Encouraged following a low fat, low cholesterol diet. - Discussed the benefits of regular aerobic exercise and weight loss. - Check fasting lipid panel and ALT in 6 months. Alfred Estrada APRN.CNP documented in this encounter [facility] 07-15-2022 Miscellaneous Notes Pharmacy requesting refills: Last office visit 06/18/2022. Last refill 06/19/2022 nov tomorrow Requested Prescriptions Pending Prescriptions Disp Refills busPIRone (BUSPAR) 5 mg tablet [Pharmacy Med Name: BUSPIRONE HCL 5 MG TABLET] 90 tablet 5 Sig: TAKE 1 TABLET BY MOUTH THREE TIMES A DAY Please review and advise. Lauren Nieves MA documented in this encounter [facility] 06-20-2022 Miscellaneous Notes Patient notified. Lauren Nieves MA Okay will send in Buspar. Thank you. Alfred Estrada APRN.MARCELLE Patient called stating that he was researching his lexapro and he saw that it treats depression. He states that he is uncomfortable taking it and he would like just a mild low dose medication to treat his anxiety. documented in this encounter [facility] 06-19-2022 Miscellaneous Notes Left message informing patient, phone number to reach the office was left for any questions or concerns. Ivone Briggs MA Please notify patient of lab results. Liver, kidney, and thyroid function normal. Blood sugar was normal at 89. Blood counts were within normal limits. Cholesterol levels were elevated. Total cholesterol was 234. Triglycerides 264. HDL 39. LDL 142. Instruct patient to increase fiber and decrease carbs in their diet. Continue exercise No need for cholesterol medication at this time. Patient may choose to take fish oil [id number]. Recheck cholesterol in 6 months. EKG was normal, there was again borderline signs of left ventricle enlargement. I will let the kindergartner evaluate him to decide on further testing UA was normal Thank you Alfred Estrada APRN.SURFACE SUPERVISOR documented in this encounter [facility] 06-18-2022 Note HNO ID: [id number] Author: Alfred Estrada APRN.SURFACE SUPERVISOR Service: ? Author Type: Nurse Practitioner Type: Progress Notes Filed: 06/20/2022 4:26 PM Note Text: This note was created using [employer]. Subjective Aly Bashir is a 32 year old male here today for elevated blood pressure. I reviewed past medical, surgical, social, and family histories today and updated chart. Allergies, chronic medications, and supplements were also reviewed. Patient hasn't been feeling right. Head pounding constant. 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 The EMS team checked him out and his blood pressure was 170/120. He went to [place] [facility] on 06/12. BP was still elevated there. EKG was done and was normal, borderline LVH. Labs were normal. Feeling very anxious BP came down a little Tring to relax but its hard Was able to cope with anxiety in the past with working out Hasn't been able to work out because he gets out of breath Decreased coffee intake Eating, activity will get headache and feel the BP going up Dad started BP med at age 29, p. gma age 30 Lymph nodes feel a little sore under his armpits - started a couple days ago No recent fevers No recent illnesses Mild runny nose a couple days ago Scheduled with cardiology - July in [place] PAST MEDICAL HISTORY Diagnosis Date Attention deficit disorder without mention of hyperactivity medication as child Genital herpes 12/26/2010 Tourette's disorder As a child PAST SURGICAL HISTORY Procedure Laterality Date NONE ALLERGIES Patient has no known allergies. MEDICATIONS valACYclovir (VALTREX) 1 gram Take 1 tablet by mouth once daily. FAMILY HISTORY Problem Relation Age of Onset No Known Problems Mother Diabetes Father Hypertension Father Hyperlipidemia Father No Known Problems Brother No Known Problems Brother Stroke Maternal Grandmother No Known Problems Maternal Grandfather Hypertension Paternal Grandmother Diabetes Paternal Grandfather Social History Tobacco Use Smoking status: Never Smokeless tobacco: Never Tobacco comments: mom smokes Vaping Use Vaping Use: Never used Substance Use Topics Alcohol use: Yes Alcohol/week: 6.0 standard drinks Types: 6 Cans of Beer (12oz) per week Comment: rarely Drug use: No Review of Systems Constitutional: Negative for appetite change, chills, fatigue, fever and unexpected weight change. HENT: Negative for congestion, ear pain, rhinorrhea and sore throat. Eyes: Negative for pain, discharge, itching and visual disturbance. Respiratory: Positive for shortness of breath. Negative for cough and wheezing. Cardiovascular: Negative for chest pain, palpitations and leg swelling. Gastrointestinal: Negative for abdominal pain, constipation, diarrhea, nausea and vomiting. Genitourinary: Negative for difficulty urinating. Musculoskeletal: Negative for arthralgias. Skin: Negative for rash. Neurological: Positive for headaches. Negative for dizziness, tremors and weakness. Psychiatric/Behavioral: Negative for dysphoric mood and sleep disturbance. The patient is nervous/anxious. Objective BP 128/90 Pulse 87 Temp 36.6 ?C (97.9 ?F) Ht 177.2 cm (5' 9.75 ) Wt 87.1 kg (192 lb) SpO2 97% BMI 27.75 kg/m? 128 92 Physical Exam Constitutional: Appearance: Normal appearance. He is well-developed. He is not diaphoretic. HENT: Head: Normocephalic and atraumatic. Right Ear: Hearing, tympanic membrane, ear canal and external ear normal. Left Ear: Hearing, tympanic membrane, ear canal and external ear normal. Nose: Nose normal. Mouth/Throat: Lips: [place]. Mouth: Mucous membranes are moist. Pharynx: Oropharynx is clear. Eyes: General: Lids are normal. Conjunctiva/sclera: Conjunctivae normal. Pupils: Pupils are equal, round, and reactive to light. Neck: Vascular: Normal carotid pulses. No carotid bruit or JVD. Cardiovascular: Rate and Rhythm: Normal rate and regular rhythm. Pulses: Carotid pulses are 2+ on the right side and 2+ on the left side. Radial pulses are 2+ on the right side and 2+ on the left side. Dorsalis pedis pulses are 2+ on the right side and 2+ on the left side. Heart sounds: Normal heart sounds. No murmur heard. Pulmonary: Effort: Pulmonary effort is normal. Breath sounds: Normal breath sounds. No wheezing, rhonchi or rales. Abdominal: General: Bowel sounds are normal. Palpations: Abdomen is soft. Tenderness: There is no abdominal tenderness. Musculoskeletal: General: Normal range of motion. Cervical back: Normal range of motion and neck supple. Right lower leg: No edema. Left lower leg: No edema. Lymphadenopathy: Cervical: No cervical adenopathy. Skin: General: Skin is warm and dry. Findings: No rash. Neurological: General: No focal deficit present. Mental Status: He is alert and oriented to person, place, and time. Cranial Nerve (more content not included)... [facility] 06-18-2022 History of Presen t illness Narrative This note was created using [employer]. Subjective Aly Bashir is a 32 year old male here today for elevated blood pressure. I reviewed past medical, surgical, social, and family histories today and updated chart. Allergies, chronic medications, and supplements were also reviewed. Patient hasn't been feeling right. Head pounding constant. 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 The EMS team checked him out and his blood pressure was 170/120. He went to [place] [facility] on 06/12. BP was still elevated there. EKG was done and was normal, borderline LVH. Labs were normal. Feeling very anxious BP came down a little Tring to relax but its hard Was able to cope with anxiety in the past with working out Hasn't been able to work out because he gets out of breath Decreased coffee intake Eating, activity will get headache and feel the BP going up Dad started BP med at age 29, p. gma age 30 Lymph nodes feel a little sore under his armpits - started a couple days ago No recent fevers No recent illnesses Mild runny nose a couple days ago Scheduled with cardiology - July in [place] PAST MEDICAL HISTORY Diagnosis Date Attention deficit disorder without mention of hyperactivity medication as child Genital herpes 12/26/2010 Tourette's disorder As a child PAST SURGICAL HISTORY Procedure Laterality Date NONE ALLERGIES Patient has no known allergies. MEDICATIONS valACYclovir (VALTREX) 1 gram Take 1 tablet by mouth once daily. FAMILY HISTORY Problem Relation Age of Onset No Known Problems Mother Diabetes Father Hypertension Father Hyperlipidemia Father No Known Problems Brother No Known Problems Brother Stroke Maternal Grandmother No Known Problems Maternal Grandfather Hypertension Paternal Grandmother Diabetes Paternal Grandfather Social History Tobacco Use Smoking status: Never Smokeless tobacco: Never Tobacco comments: mom smokes Vaping Use Vaping Use: Never used Substance Use Topics Alcohol use: Yes Alcohol/week: 6.0 standard drinks Types: 6 Cans of Beer (12oz) per week Comment: rarely Drug use: No Review of Systems Constitutional: Negative for appetite change, chills, fatigue, fever and unexpected weight change. HENT: Negative for congestion, ear pain, rhinorrhea and sore throat. Eyes: Negative for pain, discharge, itching and visual disturbance. Respiratory: Positive for shortness of breath. Negative for cough and wheezing. Cardiovascular: Negative for chest pain, palpitations and leg swelling. Gastrointestinal: Negative for abdominal pain, constipation, diarrhea, nausea and vomiting. Genitourinary: Negative for difficulty urinating. Musculoskeletal: Negative for arthralgias. Skin: Negative for rash. Neurological: Positive for headaches. Negative for dizziness, tremors and weakness. Psychiatric/Behavioral: Negative for dysphoric mood and sleep disturbance. The patient is nervous/anxious. Objective BP 128/90 Pulse 87 Temp 36.6 C (97.9 F) Ht 177.2 cm (5' 9.75 ) Wt 87.1 kg (192 lb) SpO2 97% BMI 27.75 kg/m 128 92 Physical Exam Constitutional: Appearance: Normal appearance. He is well-developed. He is not diaphoretic. HENT: Head: Normocephalic and atraumatic. Right Ear: Hearing, tympanic membrane, ear canal and external ear normal. Left Ear: Hearing, tympanic membrane, ear canal and external ear normal. Nose: Nose normal. Mouth/Throat: Lips: [place]. Mouth: Mucous membranes are moist. Pharynx: Oropharynx is clear. Eyes: General: Lids are normal. Conjunctiva/sclera: Conjunctivae normal. Pupils: Pupils are equal, round, and reactive to light. Neck: Vascular: Normal carotid pulses. No carotid bruit or JVD. Cardiovascular: Rate and Rhythm: Normal rate and regular rhythm. Pulses: Carotid pulses are 2+ on the right side and 2+ on the left side. Radial pulses are 2+ on the right side and 2+ on the left side. Dorsalis pedis pulses are 2+ on the right side and 2+ on the left side. Heart sounds: Normal heart sounds. No murmur heard. Pulmonary: Effort: Pulmonary effort is normal. Breath sounds: Normal breath sounds. No wheezing, rhonchi or rales. Abdominal: General: Bowel sounds are normal. Palpations: Abdomen is soft. Tenderness: There is no abdominal tenderness. Musculoskeletal: General: Normal range of motion. Cervical back: Normal range of motion and neck supple. Right lower leg: No edema. Left lower leg: No edema. Lymphadenopathy: Cervical: No cervical adenopathy. Skin: General: Skin is warm and dry. Findings: No rash. Neurological: General: No focal deficit present. Mental Status: He is alert and oriented to person, place, and time. Cranial Nerves: No cranial nerve deficit. Sensory: Sensation is intact. Motor: Motor function is intact. Coordination: Coordination is intact. Gait: Gait is intact. Psychiatric: Attention and Perception: Attention and perception normal. Mood and Affect: Mood is anxious. Affect is tearful (at times). Speech: Speech normal. Behavior: Behavior normal. Behavior is cooperative. Thought Content: Thought content normal. Judgment: Judgment normal. RADHA - 7 SCORES 06/18/2022 RADHA-7 Score 16 (0-4) minimal anxiety, (5-9) mild anxiety, (10-14) moderate anxiety, (15-21) severe anxiety ASSESSMENT/PLAN: 1. Primary hypertension - ICD9: 401.9, ICD10: I10 (primary diagnosis) - newly diagnosed - Encouraged dietary sodium restriction/DASH diet - Recommended regular aerobic exercise. - Recommend home blood pressure monitoring, to bring results in on next visit - Follow up in 1 month for BP recheck. - Reviewed risks of HTN and principles of treatment - Goal of BP <130/80 - TSH BLD - CBC - COMP METABOLIC PANEL - LIPID PANEL BASIC - ECG COMPLETE - URINALYSIS WITH MICROSCOPIC, REFLEX CULTURE 2. Headache, unspecified headache type - ICD9: 784.0, ICD10: R51.9 Likely related to #1 3. RADHA (generalized anxiety disorder) - ICD9: 300.02, ICD10: F41.1 Start lexapro 10 mg daily. Discussed medication action, dosing, side effects, risks, and benefits. Patient verbalizes understanding. - ESCITALOPRAM 10 MG TABLET Alfred Estrada APRN.SURFACE SUPERVISOR documented in this encounter [facility] 03-18-2022 History of Presen t illness Narrative This note was created using [employer]. Subjective Aly Bashir is a 32 year old male here today for establish care, follow-up genital herpes. He is a new patient. No former PCP really. Tried to schedule in [place] but they were 6 months out. I reviewed past medical, surgical, social, and family histories today and updated chart. Allergies, chronic medications, and supplements were also reviewed. Diagnosed with genital herpes 12 years ago, had initial outbreak but none since. 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 MEDICATIONS valacyclovir (VALTREX) 1 g ORAL Tab Take 1 tablet by mouth once daily. FAMILY HISTORY Problem Relation Age of Onset Diabetes Father Hypertension Father Diabetes Paternal Grandfather Hypertension Paternal Grandmother Social History Tobacco Use Smoking status: Never Smokeless tobacco: Never Tobacco comments: mom smokes Vaping Use Vaping Use: Never used Substance Use Topics Alcohol use: Yes Alcohol/week: 6.0 standard drinks Types: 6 Cans of Beer (12oz) per week Comment: rarely Drug use: No Review of Systems Constitutional: Negative for appetite change, chills, fatigue, fever and unexpected weight change. HENT: Negative for congestion, ear pain, rhinorrhea and sore throat. Eyes: Negative for pain, discharge, itching and visual disturbance. Respiratory: Negative for cough, shortness of breath and wheezing. Cardiovascular: Negative for chest pain, palpitations and leg swelling. Gastrointestinal: Negative for abdominal pain, constipation, diarrhea, nausea and vomiting. Genitourinary: Negative for difficulty urinating. Musculoskeletal: Negative for arthralgias. Skin: Negative for rash. Neurological: Negative for dizziness, tremors, weakness and headaches. Psychiatric/Behavioral: Negative for dysphoric mood and sleep disturbance. The patient is not nervous/anxious. Objective BP 120/78 (BP Site: Right Arm, BP Position: Sitting, BP Cuff Size: Large Adult) Pulse 66 Temp 36.6 C (97.9 F) Resp 16 Ht 177.2 cm (5' 9.75 ) Wt 86.4 kg (190 lb 6.4 oz) SpO2 99% BMI 27.52 kg/m Physical Exam Constitutional: Appearance: Normal appearance. He is not toxic-appearing or diaphoretic. HENT: Head: Normocephalic and atraumatic. Hair is normal. Right Ear: External ear normal. Left Ear: External ear normal. Nose: Nose normal. Mouth/Throat: Lips: [place]. No lesions. Mouth: Mucous membranes are moist. No oral lesions. Dentition: Abnormal dentition. Tongue: No lesions. Pharynx: Oropharynx is clear. Eyes: General: Lids are normal. Conjunctiva/sclera: Conjunctivae normal. Pupils: Pupils are equal, round, and reactive to light. Cardiovascular: Rate and Rhythm: Normal rate and regular rhythm. Heart sounds: Normal heart sounds. Pulmonary: Effort: Pulmonary effort is normal. Breath sounds: Normal breath sounds. Musculoskeletal: Cervical back: Normal range of motion and neck supple. Lymphadenopathy: Cervical: No cervical adenopathy. Skin: General: Skin is warm and dry. Coloration: Skin is not pale. Findings: No erythema. Nails: There is no clubbing. Neurological: Mental Status: He is alert and oriented to person, place, and time. Psychiatric: Mood and Affect: Mood normal. Behavior: Behavior normal. Behavior is cooperative. Thought Content: Thought content normal. Judgment: Judgment normal. Component Latest Ref Rng & Units 07/30/2021 WBC 3.70 - 11.00 k/uL 5.47 RBC 4.20 - 6.00 m/uL 5.44 Hemoglobin 13.0 - 17.0 g/dL 16.6 Hematocrit 39.0 - 51.0 % 50.3 MCV 80.0 - 100.0 fL 92.5 MCH 26.0 - 34.0 pG 30.5 MCHC 30.5 - 36.0 g/dL 33.0 RDW-CV 11.5 - 15.0 % 11.9 Platelet Count 150 - 400 k/uL 275 MPV 9.0 - 12.7 fL 10.1 Neut% % 47.0 Abs Neut (ANC) 1.45 - 7.50 k/uL 2.56 Lymph% % 41.5 Abs Lymph 1.00 - 4.00 k/uL 2.27 Brooks% % 8.8 Abs Brooks <0.87 k/uL 0.48 Eosin% % 1.6 Abs Eosin <0.46 k/uL 0.09 Baso% % 1.1 Abs Baso <0.11 k/uL 0.06 Nucleated Reds 0 /100 WBC 0.0 Absolute nRBC <0.01 k/uL <0.01 Diff Type Auto Diff Protein, Total 6.3 - 8.0 g/dL 7.5 Albumin 3.9 - 4.9 g/dL 4.8 Calcium 8.5 - 10.2 mg/dL 10.1 Bilirubin, Total 0.2 - 1.3 mg/dL 0.8 Alkaline Phosphatase 38 - 113 U/L 47 AST 14 - 40 U/L 26 Glucose 74 - 99 mg/dL 89 BUN 9 - 24 mg/dL 19 Creatinine 0.73 - 1.22 mg/dL 1.03 Sodium 136 - 144 mmol/L 139 Potassium 3.7 - 5.1 mmol/L 4.3 Chloride 97 - 105 mmol/L 103 CO2 22 - 30 mmol/L 26 Anion Gap 9 - 18 mmol/L 10 ALT 10 - 54 U/L 32 eGFR- >60 eGFR-All Other Races . >60 Cholesterol, Total <200 mg/dL 205 (H) Triglyceride <150 mg/dL 146 HDL Cholesterol >39 mg/dL 40 LDL Cholesterol <100 mg/dL 136 (H) Non HDL Cholesterol <130 mg/dL 165 (H) Fasting Time hrs 12 VLDL Cholesterol <30 mg/dL 29 TC:HDL Ratio <5.10 5.13 (H) LDL:HDL Ratio <2.54 3.40 (H) ASSESSMENT/PLAN: 1. Genital herpes - ICD9: 054.10, ICD10: A60.00 (primary diagnosis) Renewed valacyclovir 1 gm daily Follow up for worsening or persistent symptoms. - VALACYCLOVIR 1 GRAM TABLET 2. Hyperlipidemia, mixed - ICD9: 272.2, ICD10: E78.2 Will recheck in July - to be determined upon return of lab results - Encouraged following a low fat, low cholesterol diet. FU well adult in July Alfred Estrada APRN.SURFACE SUPERVISOR documented in this encounter [facility] Diagnosis RADHA (generalized anxiety disorder)- Primary Generalized anxiety disorder documented in this encounter [facility] note* Diagnosis Primary hypertension- Primary Unspecified essential hypertension Headache, unspecified headache type RADHA (generalized anxiety disorder) Generalized anxiety disorder documented in this encounter [facility] note* Diagnosis RADHA (generalized anxiety disorder) Generalized anxiety disorder documented in this encounter [facility] note* Diagnosis Well adult exam- Primary Routine general medical examination at a health care facility RADHA (generalized anxiety disorder) Generalized anxiety disorder Hyperlipidemia, mixed Mixed hyperlipidemia documented in this encounter [facility] note* Diagnosis Hyperlipidemia, mixed- Primary Mixed hyperlipidemia documented in this encounter [facility] note* Diagnosis Primary hypertension- Primary Unspecified essential hypertension RADHA (generalized anxiety disorder) Generalized anxiety disorder Hyperlipidemia, unspecified hyperlipidemia type documented in this encounter [facility] note* Diagnosis Genital herpes Genital herpes, unspecified documented in this encounter [facility] note* Diagnosis Finger laceration, initial encounter- Primary Laceration of right upper extremity, initial encounter documented in this encounter 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) Hyperlipidemia, unspecified hyperlipidemia type documented in this encounter [facility] note* Diagnosis Vitamin D deficiency- Primary Unspecified vitamin D deficiency Right ventricular dysfunction Heart disease, unspecified FAN (obstructive sleep apnea) Obstructive sleep apnea (adult) (pediatric) [facility] Diagnosis Chronic systolic dysfunction of right ventricle- Primary documented in this encounter [facility] for referral (narrative)* Outpatient Procedure (Routine) - Closed Specialty Diagnoses / Procedures Referred By Franci t Referred To [facility] Diagnoses Primary hypertension Procedures ECG COMPLETE ECG ROUTINE ECG W/LEAST 12 LDS W/I&R Alfred Estrada APRN.CNP [address] [place] [address] [facility] [address] [place] [address] Referral ID Status Reason Start Date Expiration Date V isits Requested Visits Authorized [id number] Closed Auto-Generate d Referral 06/18/2022 06/18/2023 1 1 [facility] for visit Narrative* Outpatient Procedure (Routine) - Closed Specialty Diagnoses / Procedures Referred By Franci t Referred To Contact [facility] Diagnoses Cardiomyopathy in diseases classified elsewhere Chest pain, unspecified cardiomyopathy i43 cp r07.9 dr to fx Procedures CARDIAC MRI W/WO CONTRAST & FURTHER SEQ MRI WWO CARD 440 José Miguel Menezes MD [address] [address] [facility] [address] [place] [address] Referral ID Status Reason Start Date Expiration Date Visits Re quested Visits Authorized [id number] Closed 08/15/2022 03/11/2023 1 1 [facility] Summary Purpose Family History No Family History Records FoundNo Family History Records FoundNo Family History Records FoundNo Family History Records Found Advance Directives No Advanced Directives Records FoundNo Advanced Directives Records FoundNo Advanced Directives Records FoundNo Advanced Directives Records Found Additional Source Comments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
[2023-07-04 12:00] VITALS: BP 138/98; PULSE 79; RESP 18; O2SAT 99
[2023-07-04 12:40] LABS: Reflex Troponin-HS? (from REC) Y
[2023-07-04 13:00] VITALS: RESP 18
[2023-07-04 13:18] LABS: Troponin-I HS 6 pg/mL (3.0-78.0)
[2023-07-07 13:57] LABS: Pathologist Review Reviewed
== END 2023-07-04 13:39 | disposition home or self-care (01) ==
PROVIDERS: Emergency Provider Emergency Medicine; PCP Nurse Practitioner Family; Visit Provider Emergency Medicine
DX: I42.8 Other cardiomyopathies (principal); I10 Essential (primary) hypertension; Z79.899 Other long term (current) drug therapy
CPT/HCPCS: 71046; 80048; 84484; 85025; 93005; 99284; A4216

== ENCOUNTER 2023-07-09 20:10 | Emergency (ER) | payer OTHER, SELFPAY ==
[2023-07-09 20:13] VITALS: BP 132/101; PULSE 89; RESP 16; TEMP 36.3; O2SAT 98
[2023-07-09 20:24] VITALS: PULSE 89; RESP 16; TEMP 36.4; O2SAT 96; BMI 25.6
--- NOTE | 2023-07-09 20:30 | ED.RN ---
Patient frequently yelling at staff and threatening harm to staff. also yelling and demanding hugs. attempted to swing at this RN and trying to stand up out of bed. verbal order for Geodon obtained by physician and given by nursing staff. PD also has remained at bedside to deescalate.
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
[2023-07-09] MEDS: Ziprasidone IM 20 MG/ML VIAL IM (20:37)
[2023-07-09 20:38] LABS: Absolute Lymphocyte Count 3.33 X10^3/uL (0.83-4.51); Absolute Neutrophil Count 5.4 X10^3/uL (2.0-7.7); Basophil# 0.07 X10^3/uL; Basophil% 0.7 % (0-1); Eosinophil# 0.08 X10^3/uL; Eosinophils% 0.8 % (0-5); Hemoglobin 17.4 g/dL (13.0-16.5); Lymphocyte # 3.33 X10^3/ul (0.83-4.51); Lymphocyte % 34.8 % (19-41); Mean Corp Hgb Conc 35.5 g/dL (32-36); Mean Corpuscular Hgb 31.1 pg (27.0-32.0); Mean Corpuscular Volume 87.5 fL (80-94); Monocyte% 7.3 % (0-10); NRBC Flagged by Analyzer 0 % (0-5); Neutrophil # 5.37 X10^3/uL (2.7-7.7); Neutrophil % 56.1 % (47-70); Platelet Count 315 K/mm3 (150-450); RBC Distribution Width CV 11.5 % (11.6-14.6); RBC Distribution Width SD 36.7 fl (35.1-43.9); White Blood Count 9.6 K/mm3 (4.4-11.0)
--- OUTSIDE RECORDS SUMMARY | 2023-07-09 20:58 | XMS RPT_ITS | CCD ---
Author Name Unknown Address [address] [place] [address] Organization [facility] Care Team Providers Care Sewer Pipe Layer Helper Name Role Phone SHERRY HATCH Unavailable Unavailable SHERRY HATCH Unavailable Unavailable SHERRY HATCH Unavailable Unavailable Trill ROVING MARKER.Alfred IBANEZ Primary Care Provider Sean ROVING MARKER.Alfred IBANEZ Primary Care Provider Unavailable Primary Care Provider UnavailANITA Faustin Attending Unavailable GUEROLLALFRED Primary Care Unavailable MOUNTIS, DIPTI Referring Unavailable TRILL, ALFRED C Primary Care Unavailable MOUNTIS, DIPTI Attending Unavailable TRILL, ALFRED C Attending Unavailable TRILL, ALFRED C Primary Care Unavailable TRILL, ALFRED C Referring Unavailable MOUNTIS, DIPTI Referring Unavailable TRILL, ALFRED C Primary Care Unavailable JOSÉ MIGUEL MENEZES Referring Unavailable TRIRUSTY, ALFRED C Primary Care Unavailable TRIRUSTY, ALFRED C Attending Unavailable TRILL, ALFRED C Primary Care Unavailable TRILL, ALFRED C Referring Unavailable TRILL, ALFRED C Primary Care Unavailable TRILL, ALFRED C Attending Unavailable TRILL, ALFRED C Primary Care Unavailable Medications Current Medications Medication Drug Class(es) [...] Headache; Translations: [Headache, unspecified headache type] Episodic Joint disorders and dislocations; trauma-related (16 sources) [...] 04-09-2023 07:55-0400 Diastolic blood pressure 93 mm[Hg] Eufemia Palacio DO Work Phone: [facility] 04-09-2023 07:55-0400 Heart rate 70 /min Eufemia Palacio DO Work Phone: [facility] 04-09-2023 07:55-0400 SaO2% (BldA) [Mass fraction] 99 % Eufemia Palacio DO Work Phone: [facility] 04-09-2023 07:55-0400 Systolic blood pressure 134 mm[Hg] Eufemia Palacio DO Work Phone: [facility] 04-09-2023 07:53-0400 Body height 175.3 cm Eufemia Palacio DO Work Phone: [facility] 04-09-2023 07:53-0400 Body weight 86.64 kg Eufemia Palacio DO Work Phone: [facility] 03-24-2023 10:00-0400 Diastolic blood pressure 84 mm[Hg] Alfred Trill ROVING MARKER.HEAD OF MAINTENANCE Work Phone: [facility] 03-24-2023 10:00-0400 Systolic blood pressure 110 mm[Hg] Alfred Trill ROVING MARKER.HEAD OF MAINTENANCE Work Phone: [facility] 03-24-2023 09:29-0400 Body height 177.2 cm Alfred Isabel ROVING MARKER.HEAD OF MAINTENANCE Work Phone: [facility] 03-24-2023 09:29-0400 Body temperature 97.81 [degF] Alfred Trill ROVING MARKER.HEAD OF MAINTENANCE Work Phone: [facility] 03-24-2023 09:29-0400 Body weight 84.82 kg Alfred Trirusty ROVING MARKER.HEAD OF MAINTENANCE Work Phone: [facility] 03-24-2023 09:29-0400 Heart rate 72 /min Alfred Isabel ROVING MARKER.HEAD OF MAINTENANCE Work Phone: [facility] 03-24-2023 09:29-0400 SaO2% (BldA) [Mass fraction] 96 % Alfred Trirusty ROVING MARKER.HEAD OF MAINTENANCE Work Phone: [facility] 03-03-2023 03:22-0400 Diastolic blood pressure 92 mm[Hg] Anita Hutson MD Work Phone: [facility] 03-03-2023 03:22-0400 Heart rate 87 /min Anita Hutson MD Work Phone: [facility] 03-03-2023 03:22-0400 Respiratory rate 16 /min Anita Hutson MD Work Phone: [facility] 03-03-2023 03:22-0400 SaO2% (BldA) [Mass fraction] 99 % Anita Hutson MD Work Phone: [facility] [email or web address] 03-03-2023 03:22-0400 Systolic blood pressure 140 mm[Hg] Anita Hutson MD Work Phone: [facility] [email or web address] 03-02-2023 23:30-0400 Body height 175.3 cm Anita Hutson MD Work Phone: [facility] 03-02-2023 23:30-0400 Body mass index (BMI) [Ratio] 28.06 kg/m2 Anita Hutson MD Work Phone: [facility] 03-02-2023 23:30-0400 Body temperature 98.2 [degF] Anita Hutson MD Work Phone: [facility] 03-02-2023 23:30-0400 Body weight 86.18 kg Anita Hutson MD Work Phone: [facility] 01-13-2023 12:55-0400 Body height 177.2 cm Alferd Isabel APRN.HEAD OF MAINTENANCE Work Phone: [facility] 01-13-2023 12:55-0400 Body temperature 98.2 [degF] Alfred Isabel APRN.HEAD OF MAINTENANCE Work Phone: [facility] 01-13-2023 12:55-0400 Body weight 86.64 kg Alfred Isabel APRN.HEAD OF MAINTENANCE Work Phone: [facility] 01-13-2023 12:55-0400 Diastolic blood pressure 90 mm[Hg] Alfred Isabel APRN.HEAD OF MAINTENANCE Work Phone: [facility] 01-13-2023 12:55-0400 Heart rate 72 /min Alfred Isabel APRN.HEAD OF MAINTENANCE Work Phone: [facility] 01-13-2023 12:55-0400 SaO2% (BldA) [Mass fraction] 96 % Alfred Isabel APRN.HEAD OF MAINTENANCE Work Phone: [facility] 01-13-2023 12:55-0400 Systolic blood pressure 118 mm[Hg] Alfred Trill ROVING MARKER.HEAD OF MAINTENANCE Work Phone: [facility] 07-16-2022 09:17-0500 Body height 177.2 cm Alfred Trill ROVING MARKER.HEAD OF MAINTENANCE Work Phone: [facility] 07-16-2022 09:17-0500 Body temperature 98.01 [degF] Alfred Trill ROVING MARKER.HEAD OF MAINTENANCE Work Phone: [facility] 07-16-2022 09:17-0500 Body weight 88.91 kg Alfred Trill ROVING MARKER.HEAD OF MAINTENANCE Work Phone: [facility] 07-16-2022 09:17-0500 Diastolic blood pressure 76 mm[Hg] Alfred Trill ROVING MARKER.HEAD OF MAINTENANCE Work Phone: [facility] 07-16-2022 09:17-0500 Heart rate 73 /min Alfred Trill ROVING MARKER.HEAD OF MAINTENANCE Work Phone: [facility] 07-16-2022 09:17-0500 SaO2% (BldA) [Mass fraction] 96 % Alfred Trill ROVING MARKER.HEAD OF MAINTENANCE Work Phone: [facility] 07-16-2022 09:17-0500 Systolic blood pressure 124 mm[Hg] Alfred Trill ROVING MARKER.HEAD OF MAINTENANCE Work Phone: [facility] 06-18-2022 14:56-0500 Diastolic blood pressure 92 mm[Hg] Alfred Trill ROVING MARKER.HEAD OF MAINTENANCE Work Phone: [facility] 06-18-2022 14:56-0500 Systolic blood pressure 128 mm[Hg] Alfred Trill ROVING MARKER.HEAD OF MAINTENANCE Work Phone: [facility] 06-18-2022 14:34-0500 Body height 177.2 cm Alfred Trill ROVING MARKER.HEAD OF MAINTENANCE Work Phone: [facility] 06-18-2022 14:34-0500 Body temperature 97.9 [degF] Alfred Trill ROVING MARKER.HEAD OF MAINTENANCE Work Phone: [facility] 06-18-2022 14:34-0500 Body weight 87.09 kg Alfred Trill ROVING MARKER.HEAD OF MAINTENANCE Work Phone: [facility] 06-18-2022 14:34-0500 Heart rate 87 /min Alfred Trill ROVING MARKER.HEAD OF MAINTENANCE Work Phone: [facility] 06-18-2022 14:34-0500 SaO2% (BldA) [Mass fraction] 97 % Alfred Trill ROVING MARKER.HEAD OF MAINTENANCE Work Phone: [facility] 03-18-2022 09:20-0400 Body height 177.2 cm Alfred Trill ROVING MARKER.HEAD OF MAINTENANCE Work Phone: [facility] 03-18-2022 09:20-0400 Body temperature 97.9 [degF] Alfred Trill ROVING MARKER.HEAD OF MAINTENANCE Work Phone: [facility] 03-18-2022 09:20-0400 Body weight 86.36 kg Alfred Trill ROVING MARKER.HEAD OF MAINTENANCE Work Phone: [facility] 03-18-2022 09:20-0400 Diastolic blood pressure 78 mm[Hg] Alfred Trill ROVING MARKER.HEAD OF MAINTENANCE Work Phone: [facility] 03-18-2022 09:20-0400 Heart rate 66 /min Alfred Trill ROVING MARKER.HEAD OF MAINTENANCE Work Phone: [facility] 03-18-2022 09:20-0400 Respiratory rate 16 /min Alfred Trill ROVING MARKER.HEAD OF MAINTENANCE Work Phone: [facility] 03-18-2022 09:20-0400 SaO2% (BldA) [Mass fraction] 99 % Alfred Trill ROVING MARKER.HEAD OF MAINTENANCE Work Phone: [facility] 03-18-2022 09:20-0400 Systolic blood pressure 120 mm[Hg] Alfred Trill ROVING MARKER.HEAD OF MAINTENANCE Work Phone: [facility] Encounters Encounter Date Encounter Type Care Provider Facility Start: 04-30-2023 Telephone encounter Eufemai orantes DO Work Phone: Cardiology Procedures Date Procedure Procedure Detail Performing Clinician Start: 03-03-2023 Simple rpr scalp/neck/ax/genit/trunk 7.6-12.5cm Jose Ricci Jacques DO Work Phone: Start: 03-03-2023 End: 03-03-2023 Radex elbow complete minimum 3 views Jose Ricci Sawyer DO Work Phone: Start: 03-18-2022 Adult depression screening assessment Alfred Isabel APRN.HEAD OF MAINTENANCE Work Phone: Plan of Treatment Date Care Activity Detail Author Start: 02-17-2040 Zoster Vaccines (1 of 2) Zoste r Vaccines (1 of 2) [facility] Start: 03-03-2033 DTaP/Tdap/Td Vaccine s (9 - Td or Tdap) DTaP/Tdap/Td Vaccines (9 - Td or Tdap) [facility] Start: 03-03-2033 Urine microalbumin profile DTa P,Tdap,Td Vaccine (9 - Td or Tdap) [facility] Start: 10-16-2028 Urine microalbumin profile [facility] Start: 03-24-2024 Annual PCP Team Chargeback Analyst mehnaz Disease Visit Annual PCP Team Chronic Disease Visit [facility] Start: 01-14-2024 ANNUAL PCP TEAM VIDEO AND SOUND RECORDER MEHNAZ DISEASE VISIT ANNUAL PCP TEAM CHRONIC DISEASE VISIT [facility] Start: 01-14-2024 COVID-19 VACCINE (3 - Moderna series) COVID-19 VACCINE (3 - Moderna series) [facility] Immunizations Immunization Date Immunization Notes Care Provider Fa cility 03-03-2023 tetanus and diphther ia toxoids, adsorbed, preservative free, for adult use (5 Lf of tetanus toxoid and 2 Lf of diphtheria toxoid) Anita Hutson MD Work Phone: [facility] 06-02-2022 influenza, injectabl e, quadrivalent, preservative free Alfred Isabel APRN.HEAD OF MAINTENANCE Work Phone: [facility] Work Phone: 06-02-2022 influenza virus vacc ine, unspecified formulation Anita Hutson MD Work Phone: [facility] 09-08-2021 Influenza, injectabl e, Madin Star Canine Kidney, preservative free, quadrivalent Alfred Trill ROVING MARKER.[facility] Work Phone: [facility] 02-23-2021 COVID-19 vaccine, fu ll dose (MODERNA) Alfred Trill ROVING MARKER.[facility] Work Phone: [facility] Work Phone: 01-17-2021 COVID-19 vaccine, fu ll dose (MODERNA) Alfred Trill ROVING MARKER.[facility] Work Phone: [facility] Work Phone: 08-27-2020 influenza, seasonal, injectable Alfred Trill ROVING MARKER.[facility] Work Phone: [facility] Work Phone: 08-24-2020 anthrax vaccine Alfred Tril l ROVING MARKER.[facility] Work Phone: [facility] Work Phone: 07-03-2020 measles, mumps and rubella virus vaccine Alfred Trill ROVING MARKER.[facility] Work Phone: [facility] Work Phone: 03-23-2020 anthrax vaccine Alfred Tril l ROVING MARKER.[facility] Work Phone: [facility] Work Phone: 03-23-2020 typhoid capsular polysaccharide vaccine Alfred Trill ROVING MARKER.HEAD OF MAINTENANCE Work Phone: [facility] Work Phone: 01-13-2020 anthrax vaccine Alfred Tril l ROVING MARKER.[facility] Work Phone: [facility] Work Phone: 05-07-2019 influenza, injectabl e, quadrivalent, preservative free Alfred Trill ROVING MARKER.[facility] Work Phone: [facility] Work Phone: 10-16-2018 tetanus and diphther ia toxoids, adsorbed, preservative free, for adult use (2 Lf of tetanus toxoid and 2 Lf of diphtheria toxoid) Alfred Trill ROVING MARKER.[facility] Work Phone: [facility] Work Phone: 05-08-2018 influenza, injectabl e, quadrivalent, preservative free Alfred Trill ROVING MARKER.[facility] Work Phone: [facility] Work Phone: 05-09-2017 influenza, injectabl e, quadrivalent, preservative free Alfred Trill ROVING MARKER.[facility] Work Phone: [facility] Work Phone: 03-16-2016 influenza, seasonal, injectable, preservative free Alfred Trill ROVING MARKER.[facility] Work Phone: [facility] Work Phone: 06-05-2015 influenza, seasonal, injectable Alfred Trill ROVING MARKER.[facility] Work Phone: [facility] Work Phone: 05-03-2014 influenza, live, intranasal, quadrivalent Alfred Trill ROVING MARKER.[facility] Work Phone: [facility] Work Phone: 02-13-2014 typhoid capsular polysaccharide vaccine Alfred Trill ROVING MARKER.[facility] Work Phone: [facility] Work Phone: 03-12-2013 influenza, seasonal, injectable Alfred Trill ROVING MARKER.HEAD OF MAINTENANCE Work Phone: [facility] Work Phone: 03-20-2012 influenza, seasonal, injectable, preservative free Alfred Trill ROVING MARKER.[facility] Work Phone: [facility] Work Phone: 04-12-2011 influenza nasal, unspecified formulation Alfred Trill ROVING MARKER.[facility] Work Phone: [facility] Work Phone: 09-15-2009 novel influenza-H1N1 -09, injectable Alfred Trill ROVING MARKER.[facility] Work Phone: [facility] Work Phone: 04-19-2009 influenza virus vacc ine, live, attenuated, for intranasal use Alfred Trill ROVING MARKER.HEAD OF MAINTENANCE Work Phone: [facility] Work Phone: 02-12-2009 hepatitis A vaccine, pediatric/adolescent dosage, 2 dose schedule Alfred Trill ROVING MARKER.HEAD OF MAINTENANCE Work Phone: [facility] Work Phone: 02-12-2009 hepatitis B vaccine, pediatric or pediatric/adolescent dosage Alfred Trill ROVING MARKER.[facility] Work Phone: [facility] Work Phone: 05-20-2008 anthrax vaccine Alfred Tril l ROVING MARKER.[facility] Work Phone: [facility] Work Phone: 05-20-2008 hepatitis B vaccine, adult dosage Alfred Trill ROVING MARKER.[facility] Work Phone: [facility] Work Phone: 05-20-2008 influenza virus vacc ine, live, attenuated, for intranasal use Alfred Trill ROVING MARKER.HEAD OF MAINTENANCE Work Phone: [facility] Work Phone: 05-20-2008 typhoid capsular polysaccharide vaccine Alfred Trill ROVING MARKER.HEAD OF MAINTENANCE Work Phone: [facility] Work Phone: 12-20-2007 hepatitis A vaccine, pediatric/adolescent dosage, 2 dose schedule Alfred Trill ROVING MARKER.[facility] Work Phone: [facility] Work Phone: 12-20-2007 hepatitis B vaccine, pediatric or pediatric/adolescent dosage Alfred Trill ROVING MARKER.HEAD OF MAINTENANCE Work Phone: [facility] Work Phone: 12-20-2007 meningococcal polysaccharide (groups A, C, Y and W-135) diphtheria toxoid conjugate vaccine (MCV4P) Alfred Trill ROVING MARKER.[facility] Work Phone: [facility] Work Phone: 12-20-2007 poliovirus vaccine, inactivated Alfred Trill ROVING MARKER.[facility] Work Phone: [facility] Work Phone: 12-20-2007 tetanus toxoid, redu bar[place] diphtheria toxoid, and acellular pertussis vaccine, adsorbed Alfred Trill ROVING MARKER.[facility] Work Phone: [facility] Work Phone: 03-17-2003 measles, mumps and rubella virus vaccine Alfred Trill ROVING MARKER.[facility] Work Phone: [facility] Work Phone: 02-25-2003 diphtheria and tetan us toxoids, adsorbed for pediatric use Alfred Trill ROVING MARKER.[facility] Work Phone: [facility] Work Phone: 10-29-1991 diphtheria, tetanus toxoids and acellular pertussis vaccine Alfred Trill ROVING MARKER.[facility] Work Phone: [facility] Work Phone: 10-27-1991 trivalent poliovirus vaccine, live, oral Alfred Trill ROVING MARKER.[facility] Work Phone: [facility] Work Phone: 07-14-1991 haemophilus influenz ae type b vaccine, HbOC conjugate Alfred Trill ROVING MARKER.[facility] Work Phone: [facility] Work Phone: 07-14-1991 measles, mumps and rubella virus vaccine Alfred Trill ROVING MARKER.[facility] Work Phone: [facility] Work Phone: 01-27-1991 haemophilus influenz ae type b vaccine, HbOC conjugate Alfred Trill ROVING MARKER.[facility] Work Phone: [facility] Work Phone: 1990 diphtheria, tetanus toxoids and acellular pertussis vaccine Alfred Trill ROVING MARKER.[facility] Work Phone: [facility] Work Phone: 1990 haemophilus influenz ae type b vaccine, HbOC conjugate Alrfed Trill ROVING MARKER.HEAD OF MAINTENANCE Work Phone: [facility] Work Phone: 1990 diphtheria, tetanus toxoids and acellular pertussis vaccine Alfred Trill ROVING MARKER.HEAD OF MAINTENANCE Work Phone: [facility] Work Phone: 1990 haemophilus influenz ae type b vaccine, HbOC conjugate Alfred Trill ROVING MARKER.[facility] Work Phone: [facility] Work Phone: 1990 trivalent poliovirus vaccine, live, oral Alfred Trill ROVING MARKER.[facility] Work Phone: [facility] Work Phone: 1990 diphtheria, tetanus toxoids and acellular pertussis vaccine Alfred Trill ROVING MARKER.[facility] Work Phone: [facility] Work Phone: 1990 trivalent poliovirus vaccine, live, oral Alfred Trill ROVING MARKER.[facility] Work Phone: [facility] Work Phone: Payers Date Payer Category Payer Unknown [id number] 2021 Unknown [id number] Social History Date Type Detail Facility Start: 03-18-2022 Tobacco smoking status NHIS Never sm oked tobacco [facility] Start: 03-18-2022 Tobacco use and exposure Smoke less tobacco non-user [facility] Start: 03-18-2022 End: 04-09-2023 Alcohol intake Current drinker of alcohol (finding) [facility] Start: 03-18-2022 End: 01-13-2023 Alcohol intake [facility] Start: 03-03-2020 History SDOH Alcohol Frequency 2 [facility] Start: 03-03-2020 History SDOH Alcohol Std Drinks 1 [facility] Start: 03-18-2022 History SDOH Alcohol Comment rarely [facility] Start: 03-18-2022 [facility] Start: 1990 Sex Assigned At Not on file C [facility] Start: 03-08-2022 End: 03-03-2023 Exposure to SARS-CoV-2 (event) Not sure [facility] Start: 03-03-2020 End: 01-13-2023 Alcohol Use Disorder Identification Test - Consumption [AUDIT-C] [facility] How often to you hav e a drink containing alcohol? Monthly or less [facility] How many standard dr inks containing alcohol do you have on a typical day? 1 or 2 [facility] How often do you hav e 6 or more drinks on 1 occasion? 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 [facility] Start: 1990 Sex Assigned At Male S [facility] Start: 03-02-2023 Gender identity Identifies as male gender (finding) [facility] Clinical Notes 03-18-2022 to 07-08-2023 Telephone Encounter - Miryam Lara - 04/30/2023 11:31 AM EDTPatient Eufemia Thomas DO - 04/08/2023 7:34 AM EDTTelephone Encounter - Francisco Antonio - 04/02/2023 3:07 PM EDT Note Date & Type Note Facility 07-08-2023 Note Patient Outreach (MONICA CANALES) ALY BASHIR ([id number]) 1990 M Date Time Provider Department 07/08/23 ALFRED ISABEL During your visit today, we recorded the following information about you: Saba Sam MA 07/08/2023 9:05 AM Signed ED Follow Up: Patient discharged from [facility] ED on 07/04/23. 1. How are you feeling since your ED visit? N/A Have your symptoms improved or resolved? Not applicable 2. Were you prescribed any medications while in the ED or advised to stop any medication? Not applicable - If yes, were you able to fill your prescriptions? Not applicable -if stopped medication, what was the medication? N/A 3. Were you advised to schedule a follow up appointment with your provider? Not applicable - If no, Do you feel like you need an appointment scheduled? Not applicable - If yes, Do you need this scheduled now or has this already been scheduled? Not applicable 4. Were you able to contact the office or lead generation marketing manager provider prior to your ED visit? Not applicable 5. Is there anything else I can do for you today? Not applicable Saba Sam MA Allergies As of Date: 07/08/2023 (No Known Allergies) Date Reviewed: 04/09/2023 Reviewed by: Jennifer Petersen RN - Fully Assessed Reason for Visit: ED Outreach [Other] Cmt: [place] [facility] 07/04/23 Prescriptions as of 07/08/2023 - carvedilol (COREG) 3.125 mg tablet Take 3.125 mg by mouth two times a day. - valACYclovir (VALTREX) 1 gram Take 1 tablet by mouth once daily. - busPIRone (BUSPAR) 5 mg tablet TAKE 1 TABLET BY MOUTH THREE TIMES A DAY Meds Comments as of 03/26/2010: Reviewed current meds, 03/16/2008. 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 Author Type: [employer] Type: Progress Notes Filed: 07/08/2023 9:05 AM Note Text: ED Follow Up: Patient discharged from [facility] ED on 07/04/23. 1. How are you feeling since your ED visit? N/A Have your symptoms improved or resolved? Not applicable 2. Were you prescribed any medications while in the ED or advised to stop any medication? Not applicable - If yes, were you able to fill your prescriptions? Not applicable -if stopped medication, what was the medication? N/A 3. Were you advised to schedule a follow up appointment with your provider? Not applicable - If no, Do you feel like you need an appointment scheduled? Not applicable - If yes, Do you need this scheduled now or has this already been scheduled? Not applicable 4. Were you able to contact the office or lead generation marketing manager provider prior to your ED visit? Not applicable 5. Is there anything else I can do for you today? Not applicable Saba Sam MA [facility] 04-30-2023 Miscellaneous Notes April 30, 2023 Name: Aly Bashir Patient Contact Number: [phone] (home) [phone] (cell) Date of last office visit: 04/09/2023 Reason For Call: [employer] called to inform Eufemia Palacio that Mr. Bashir was dined for his zio patch that was requested on 04-27-23. Please call [phone] if you would like to do a peer to peer. Or fax dispute to [phone]. Physician: Eufemia Palacio Patient was informed that non-urgent calls may be returned within the next three business days. Yes Miryam Lara documented in this encounter [facility] 04-27-2023 Note HNO ID: [id number] Author: Krishna Maldonado DO Service: ? Author Type: Physician Type: Progress Notes Filed: 04/29/2023 3:39 AM Note Text: Sleep Study Check-In Documentation Date: April 29, 2023 Name: Aly Bashir Patient was accompanied by Self. Location: [facility] Latex allergy: No Tape allergy: No Current medications were reviewed with the patient:Yes Sleep aid taken by patient for the sleep study: [place] of sleep aid: Not Applicable Procedure was [...] their ordering provider regarding test results Idania Ruthdaija [facility] April 27, 2023 An order has been received for Polysomnogram (PSG) from Eufemia Mak DO, A. Sleep Center Staff/Shot Blast Equipment Operator Staff Orders. Visit prep complete - Please refer to the sleep study order (under procedures tab) for protocol details and special instructions. The sleep study is scheduled for 05/03/2023. Insurance: Payor: [facility] / Plan: MD PREMIER FULLY INSURED / Product Type: PPO / Payer/Plan Subscr Sex Relation Sub. Ins. ID Effective Group Num 1. [employer] - S* ALY BASHIR 1990 Male Self [id number] 07/06/21 [id number] [id number] April 27, 2023 Standing PSG Orders signed in the last 90 days None Future PSG Orders signed in the last 90 days Ordered Auth. provider POLYSOMNOGRAM (PSG) [[id number]] 04/09/23 Eufemia Palacio DO Assoc. diagnoses: Right ventricular dysfunction [I51.9], [...] Maldonado DO 2:30 PM, 04/27/2023 Braulio Cesar [facility] 04-09-2023 Instructions Eufemia Palacio DO - 04/09/2023 9:21 AM EDT You [...] issues Lab today documented in this encounter [facility] 04-09-2023 Note HNO ID: [id number] Author: Cameron Hernandez DO Service: ? Author Type: Physician Type: Procedures Filed: 05/07/2023 8:28 AM Note Text: Patient Name: Aly Bashir : 1990 Ordering Provider: Eufemia Palacio Indication: E55.9 Vitamin D deficiency, unspecified Type of Monitor: Extended Monitoring-Zio Patch Enrollment Dates: 04/14/2023-04/28/2023 Predominant rhythm sinus. Rare PAC and PVC Cameron Hernandez DO [facility] 04-08-2023 Note HNO ID: [id number] Author: Eufemia Palacio DO Service: ? 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 [facility] 04-08-2023 History of Presen t illness Narrative Images from the original note were not included. 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 Only for patients at the [place] site, please call the lab upon arrival @ and one of our staff will come to lobby to greet you and escort you to your sleep room. After your study you will be free to leave the sleep laboratory at all sites, except the [facility], between 5 a.m. and 6 a.m. unless other scheduling arrangements have been made in advance. If you are having your sleep test at the [facility], you will be able to leave [...] 18 years of age, one adult (over [id number]) parent or guardian is required to stay [...] CVM Order Specific Question: Appt Type Answer: EST Online E&M Level 1 ($35) [id number] Order Specific Question: Date of Appt Answer: 1-2 months HVI VIRTUAL VISIT APPOINTMENT Order Specific Question: Department Answer: CVM Order Specific Question: Appt Type Answer: EST Online E&M Level 3 ($371) [id number] Order Specific Question: Date of Appt Answer: 1-2 months Vitamin D 25 Hydroxy Standing Status: Future Number of Occurrences: 1 Standing Expiration Date: 06/09/2023 NT PRO BNP Standing Status: Future Number of Occurrences: 1 Standing Expiration Date: 06/09/2023 ZIO PATCH-financial clearance required Order Comments: Financial clearance needed: Arrhythmia lab [phone] Financial Counselor [phone] ext [phone] Order Specific Question: Vendor Answer: [...] diet, exercise, other non-medical management as above. Eufemia [facility] Section Of Heart Failure and Cardiac Transplant Medicine [facility] [place] [facility] Desk J3-[address] [place] [address] ADDENDUM: Spoke with 2 cardiac MRI readers here at [facility] [place], spoke with 2 of my Heart Failure [...] up CMR here in 12 months, at [facility] to assess progression. At this time will maintain ASA and BB that he was placed on, continue with sleep study and ZIO patch and repeat cardiac MRI at [facility]. Communicated this to patient. Eufemia Palacio DO April 10, 2023 11:56 AM documented in this encounter [facility] 04-02-2023 Miscellaneous Notes Patient: Aly Bashir Date of : 1990 Patient phone number: [phone] Referring Provider for the encounter: rochelle menezes [phone] fax [phone] Requesting Provider: none specified Reason for requesting visit (RFV/signs and symptoms/diagnosis): CONGESTIVE HEART FAILURE Person calling: ASHLEY AT DR MENEZES'S [phone] fax [phone] Return call to: self Medical Records/Insurance Card scanned into Appcore: No Comments: NONE documented in this encounter [facility] 03-24-2023 Note HNO ID: [id number] Author: Alfred Isabel APRN.HEAD OF MAINTENANCE Service: ? Author Type: Nurse Practitioner Type: Progress Notes Filed: 03/29/2023 12:07 PM Note Text: This note was created using wutaboutriter. Subjective Aly Bashir is a 33 year old male here today for HTN follow-up. I reviewed past medical, surgical, social, and family histories today and updated chart. Allergies, chronic medications, and supplements were also reviewed. Patient was diagnosed with primary hypertension in June 2022 - he had not been feeling right, constant heart pounding. He went to [place] ER for high BP of 170/120 on 06/12/22. EKG and labs were normal. There was borderline LVH on EKG. He was referred to see a machine iii coremaker. Around the same time his anxiety was worsening. Treated with Buspar with improvement Blood pressures in the office remained at goal, Home BPs would fluctuate Patient established care with machine iii [address] Menezes - [place] [facility] Echocardiogram done 08/04/22 = LVEF 65%, [...] pits for almost 1 year Stationed at [facility] He is in contact with [facility] regarding disability Blood pressures have been elevated at home - always higher in the right arm He is not currently on blood pressure medication. He states his machine iii coremaker was surprised he has not been started [...] ear normal. Nose: Nose normal. Mouth/Throat: Lips: [place]. Mouth: Mucous membranes are moist. Pharynx: Oropharynx is clear. Eyes: General: Lids are normal. Conjunctiva/sclera: Conjunctivae normal. Pupils: Pupils are equal, round, and reactive to light. Neck: Vascular: Normal carotid pulses. No carotid bruit or JVD. Cardiovascular: Rate and Rhythm: Normal rate and regular rhythm. Pulses: Carotid pulses are 2+ on the righ (more content not included)... [facility] 03-24-2023 History of Presen t illness Narrative This note was created using NoteWriter. Subjective Aly Bashir is a 33 year old male here today for HTN follow-up. I reviewed past medical, surgical, social, and family histories today and updated chart. Allergies, chronic medications, and supplements were also reviewed. Patient was diagnosed with primary hypertension in June 2022 - he had not been feeling right, constant heart pounding. He went to [place] ER for high BP of 170/120 on 06/12/22. EKG and labs were normal. There was borderline LVH on EKG. He was referred to see a machine iii coremaker. Around the same time his anxiety was worsening. Treated with Buspar with improvement Blood pressures in the office remained at goal, Home BPs would fluctuate Patient established care with machine iii c[address] Menezes - [place] [facility] Echocardiogram done 08/04/22 = LVEF 65%, [...] pits for almost 1 year Stationed at [facility] He is in contact with [facility] regarding disability Blood pressures have been elevated at home - always higher in the right arm He is not currently on blood pressure medication. He states his machine iii coremaker was surprised he has not been started [...] ear normal. Nose: Nose normal. Mouth/Throat: Lips: [place]. Mouth: Mucous membranes are moist. Pharynx: Oropharynx [...] Content: Thought content normal. Judgment: Judgment normal. [facility] [address] [place] [address] MR#: [id number] Acct: [id number] Name: ALY BASHIR Rep #: [id number] : 1990 32 From: José Miguel Menezes MD Primary Care: Alfred Isabel NP-[place] Status: REG I Referring Dr: Sex: M C Stress Test [...] or recovery This note was generated with Pod Inns dictation software. It may contain incorrect words, spelling, and punctuation that were not noted in checking the note before signing. 08/06/22 1542 Date ___ José Miguel Menezes MD [facility] [address] [place] [address] Echo Complete 08/04/22 1059 MR#: [id number] Acct: [id number] Name: ALY BASHIR Rep #: [id number] : 1990 32 From: José Miguel Menezes MD Attending Dr: Dr. José Miguel Menezes MD Status: REG CLI Ordering Dr: José Miguel Menezes MD Date: 08/04/22 Location: [facility] Sex: M C Admitted: Reason For Study: [...] Negative Ketones, Urine Trace, Negative Negative Specific [place], Ur 1.005 - 1.030 1.020 Hemoglobin/Blood,Ur Negative, [...] ICD10: I43 Patient continues care with Dr [facility] Was referred to heart failure specialist 3. Hyperlipidemia, unspecified hyperlipidemia type - ICD9: 272.4, ICD10: E78.5 - Uncontrolled Defer decision to treat with medication to cardiology - Counseled on healthy diet and regular exercise Alfred Isabel APRN.HEAD OF MAINTENANCE documented in this encounter [facility] 03-04-2023 Note Patient Outreach (AG INTMLW) ALY BASHIR ([id number]) 1990 M Date Time Provider Department 03/04/23 GAYLE DOWD AGINTMLW During your visit today, we recorded the following information about you: Gayle Dowd MA 03/04/2023 11:08 AM Signed ED Follow Up: Patient discharged from [facility] ED on 03/02/23. 1. How are [...] you able to contact the office or lead generation marketing manager provider prior to your ED visit? No 5. Is there anything else I can do for you today? No Allergies As of Date: 03/04/2023 (No Known Allergies) Date Reviewed: 01/19/2023 Reviewed by: Alfred Isabel APRN.HEAD OF MAINTENANCE - Fully Assessed Prescriptions as of 03/04/2023 - valACYclovir (VALTREX) 1 gram Take 1 tablet by mouth once daily. - busPIRone (BUSPAR) 5 mg tablet TAKE 1 TABLET BY MOUTH THREE TIMES A DAY Meds Comments as of 03/26/2010: Reviewed current meds, 03/16/2008. 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 Author Type: [employer] Rolls Type: Progress Notes Filed: 03/04/2023 11:08 AM Note Text: ED Follow Up: Patient discharged from [facility] ED on 03/02/23. 1. How are [...] you able to contact the office or lead generation marketing manager provider prior to your ED visit? No 5. Is there anything else I can do for you today? No [facility] 03-03-2023 Note Procedure Laceration Repair Performed by: Jose Jacques DO Authorized by: Anita Hutson MD Consent: Consent obtained: Verbal Consent given by: Patient Risks, benefits, and alternatives were discussed: yes Risks discussed: Infection, tendon damage, vascular damage, poor wound healing and poor cosmetic result Alternatives discussed: No treatment [place] protocol: Procedure explained and questions answered to [...] complications Jose Jacques DO Resident 03/03/23 0247 [facility] 03-03-2023 Emergency department Note Patient in triage stated forgot to remove IV, sandra medic removed IV Ailyn Castellanos RN 03/03/236 [facility] 03-03-2023 Emergency department Note Patient in triage stated forgot to remove IV, sandra medic removed IV Ailyn Castellanos RN 03/03/236 EMERGENCY DEPARTMENT ENCOUNTER Pt Name: Aly Bashir [...] Bag 03/03/23 0024) lidocaine-EPINEPHrine (Xylocaine W/EPI) 1 %-1:432439 injection 20 mL (20 mL Injection Given [...] to contact the dictating provider for clarification.) oJse Jacques DO (electronically signed) Emergency Medicine Provider Jose Jacques DO Resident 03/03/23 0253 Emergency Department Encounter [facility] EMERGENCY DEPT Patient: Aly Bashir : 1990 Date of Evaluation: 03/02/2023 ED Supervising Physician: Anita Hutson MD I independently examined and evaluated Aly Bashir. This will serve as my Supervisory note as the clinical tech of record and shared attestation. I did [...] MD 03/03/23 0431 documented in this encounter [facility] 03-03-2023 Hospital Discharg e instructions Jose [...] through Care Everywhere.Laceration Repair With Stitches ED (Vietnamese)documented in this encounter [facility] 03-03-2023 Note Associated Order(s): Laceration Repair Procedure Laceration Repair Performed by: Jose Jacques DO Authorized by: Anita Hutson MD Consent: Consent obtained: Verbal Consent given by: Patient Risks, benefits, and alternatives were discussed: yes Risks discussed: Infection, tendon damage, vascular damage, poor wound healing and poor cosmetic result Alternatives discussed: No treatment [place] protocol: Procedure explained and questions answered to [...] complications Jose Jacques DO Resident 03/03/23 0247 [facility] 03-03-2023 Note Associated Order(s): Laceration Repair Procedure Laceration Repair Performed by: Jose Jacques DO Authorized by: Anita Hutson MD Consent: Consent obtained: Verbal Consent given by: Patient Risks, benefits, and alternatives were discussed: yes Risks discussed: Infection, tendon damage, vascular damage, poor wound healing and poor cosmetic result Alternatives discussed: No treatment [place] protocol: Procedure explained and questions answered to [...] no immediate complications Jose Jacques DO Resident 08/246 [facility] 03-03-2023 Miscellaneous Notes Associated Order(s): Laceration Repair Procedure Laceration Repair Performed by: Jose Jacques DO Authorized by: Anita Hutson MD Consent: Consent obtained: Verbal Consent given by: Patient Risks, benefits, and alternatives were discussed: yes Risks discussed: Infection, tendon damage, vascular damage, poor wound healing and poor cosmetic result Alternatives discussed: No treatment [place] protocol: Procedure explained and questions answered to [...] no immediate complications Jose Jacques DO Resident 03/03/23246 documented in this encounter [facility] 03-02-2023 Physician Emergency department Note EMERGENCY [...] Bag 03/03/23 0024) lidocaine-EPINEPHrine (Xylocaine W/EPI) 1 %-1:246093 injection 20 mL (20 mL Injection Given [...] Medicine Provider Jose Jacques DO Resident 03/03/23 025 [facility] 03-02-2023 Physician Emergency department Note Emergency Department Encounter [facility] EMERGENCY DEPT Patient: Aly Bashir : 1990 Date of Evaluation: 03/02/2023 ED Supervising Physician: Anita Hutson MD I independently examined and evaluated Aly Bashir. This will serve as my Supervisory note as the clinical tech of record and shared attestation. I did [...] dictating provider for clarification.) Anita Hutson MD [employer] [facility] Anita Hutson MD 03/03/23 0431 [facility] Phone: 03-02-2023 Miscellaneous Notes Patient electronically requesting refills as follows: Last seen 01/13/23 . Last refill 03/18/22 . Requested Prescriptions Pending Prescriptions Disp Refills valACYclovir (VALTREX) 1 gram 90 tablet 3 Sig: Take 1 tablet by mouth once daily. Please review and advise. Xiomara Henson MA documented in this encounter [facility] 02-26-2023 Note HNO ID: [id number] Author: Nancy Ba RT(Chantal) Service: Radiology Author Type: Technologist Type: Progress [...] DATE: February 26, 2023 TIME: 3:04 PM [facility] 02-26-2023 History of Presen t illness [...] MR; Exam(s) Completed: Cardiac: Cardiac SIGNATURE: RT Rhea(Chantal) PATIENT NAME: Aly Bashir DATE: February 26, 2023 TIME: 3:04 PM documented in this encounter [facility] 01-13-2023 Note HNO ID: [id number] Author: Alfred Isabel APRN.HEAD OF MAINTENANCE Service: ? Author Type: Nurse Practitioner Type: Progress Notes Filed: 01/19/2023 10:08 PM Note Text: This note was created using wutaboutriter. Subjective Aly Bashir is a 32 year [...] tight/pressure Able to relax left arm Sees machine iii coremaker tomorrow PAST MEDICAL HISTORY Diagnosis Date Attention [...] ear normal. Nose: Nose normal. Mouth/Throat: Lips: [place]. Mouth: Mucous membranes are moist. Pharynx: Oropharynx [...] Perception: Attention a (more content not included)... [facility] 01-13-2023 History of Presen t illness Narrative This note was created using wutaboutriter. Subjective Aly Bashir is a 32 year [...] tight/pressure Able to relax left arm Sees machine iii coremaker tomorrow PAST MEDICAL HISTORY Diagnosis Date Attention [...] ear normal. Nose: Nose normal. Mouth/Throat: Lips: [place]. Mouth: Mucous membranes are moist. Pharynx: Oropharynx [...] Abs Lymph 1.00 - 4.00 k/uL 2.27 [place]% % 8.8 Abs [place] <0.87 k/uL 0.48 [place]% % 1.6 Abs [...] Negative Ketones, Urine Trace, Negative Negative Specific [place], Ur 1.005 - 1.030 1.020 Hemoglobin/Blood,Ur Negative, [...] diet - Recommend regular aerobic exercise 2. RADHA (generalized anxiety disorder) - ICD9: 300.02, ICD10: F41.1 Continue Buspar 5 mg TID 3. Hyperlipidemia, unspecified hyperlipidemia type - ICD9: 272.4, ICD10: E78.5 - Control undetermined, due for labs - Counseled on healthy diet and regular exercise FU 3 months Alfred Isabel APRN.MARCELLE documented in this encounter [facility] 12-19-2022 Miscellaneous Notes Lm on with all information. Lauren Nieves MA Thank you. Please see orders. Alfred Isabel APRN.CNP ----- Message from Saba Sam MA sent at 06/19/2022 9:15 AM EST ----- Recheck cholesterol in 6 months documented in this encounter [facility] 10-24-2022 Miscellaneous Notes CMR Protocol needed for this outpatient scheduled on 11/10/22. Order and Echo report in Scanned Documents 08/14/22. Thank you documented in this encounter [facility] 07-16-2022 Note HNO ID: [id number] Author: Alfred Isabel APRN.HEAD OF MAINTENANCE Service: ? Author Type: Nurse Practitioner Type: Progress Notes Filed: 07/16/2022 9:50 AM Note Text: This note was created using wutaboutriter. Subjective Aly Bashir is a 32 year [...] night He had appt set up with machine iii coremaker next week He has been checking his [...] No drainage. Nose: Nose normal. Mouth/Throat: Lips: [place]. Mouth: Mucous membranes are moist. Pharynx: Oropharynx [...] Gait is intact. (more content not included)... [facility] 07-16-2022 History of Presen t illness Narrative This note was created using adjust. Subjective Aly Bashir is a 32 year [...] night He had appt set up with machine iii coremaker next week He has been checking his [...] No drainage. Nose: Nose normal. Mouth/Throat: Lips: [place]. Mouth: Mucous membranes are moist. Pharynx: Oropharynx [...] Negative Ketones, Urine Trace, Negative Negative Specific [place], Ur 1.005 - 1.030 1.020 Hemoglobin/Blood,Ur Negative, [...] panel and ALT in 6 months. Alfred Isabel APRN.MARCELLE documented in this encounter [facility] 07-15-2022 Miscellaneous Notes Pharmacy requesting refills: Last office visit 06/18/2022. Last refill 06/19/2022 nov tomorrow Requested Prescriptions Pending Prescriptions Disp Refills busPIRone (BUSPAR) 5 mg tablet [Pharmacy Med Name: BUSPIRONE HCL 5 MG TABLET] 90 tablet 5 Sig: TAKE 1 TABLET BY MOUTH THREE TIMES A DAY Please review and advise. Lauren Nieves MA documented in this encounter [facility] 06-20-2022 Miscellaneous Notes Patient notified. Lauren Nieves MA Okay will send in Buspar. Thank you. Alfred Isabel APRN.MARCELLE Patient called stating that he was researching his lexapro and he saw that it treats depression. He states that he is uncomfortable taking it and he would like just a mild low dose medication to treat his anxiety. documented in this encounter [facility] 06-19-2022 Miscellaneous Notes Left message informing patient, phone number to reach the office was left for any questions or concerns. Saba Sam MA Please notify patient of lab results. [...] Patient may choose to take fish oil [id number]. Recheck cholesterol in 6 months. EKG was normal, there was again borderline signs of left ventricle enlargement. I will let the machine iii coremaker evaluate him to decide on further testing UA was normal Thank you Alfred Isabel APRN.HEAD OF MAINTENANCE documented in this encounter [facility] 06-18-2022 History of Presen t illness Narrative This note was created using adjust. Subjective Aly Bashir is a 32 year old male here today for elevated blood pressure. I reviewed past medical, surgical, social, and family histories today and updated chart. Allergies, chronic medications, and supplements were also reviewed. Patient hasn't been feeling right. Head pounding constant. 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 The EMS team checked him out and his blood pressure was 170/120. He went to [place] ER on 06/12. BP was still elevated [...] ago Scheduled with cardiology - July in [place] PAST MEDICAL HISTORY Diagnosis Date Attention deficit [...] ear normal. Nose: Nose normal. Mouth/Throat: Lips: [place]. Mouth: Mucous membranes are moist. Pharynx: Oropharynx [...] understanding. - ESCITALOPRAM 10 MG TABLET Alfred Isabel APRN.HEAD OF MAINTENANCE documented in this encounter [facility] 03-18-2022 History of Presen t illness Narrative This note was created using NoteWriter. Subjective Aly Bashir is a 32 year old male here today for establish care, follow-up genital herpes. He is a new patient. No former PCP really. Tried to schedule in [place] but they were 6 months out. I reviewed past medical, surgical, social, and family histories today and updated chart. Allergies, chronic medications, and supplements were also reviewed. Diagnosed with genital herpes 12 years ago, had initial outbreak but none since. 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 Nose: Nose normal. Mouth/Throat: Lips: [place]. No lesions. Mouth: Mucous membranes are moist. [...] Abs Lymph 1.00 - 4.00 k/uL 2.27 [place]% % 8.8 Abs [place] <0.87 k/uL 0.48 [place]% % 1.6 Abs [...] diet. FU well adult in July Alfred Isabel APRN.HEAD OF MAINTENANCE documented in this encounter [facility] Diagnosis RADHA (generalized anxiety disorder)- Primary Generalized anxiety disorder [facility] Diagnosis Primary hypertension- Primary Unspecified essential hypertension Headache, unspecified headache type RADHA (generalized anxiety disorder) Generalized anxiety disorder documented in this encounter [facility] note* Diagnosis RADHA (generalized anxiety disorder) Generalized anxiety disorder documented in this encounter [facility] note* Diagnosis Well adult exam- Primary Routine general medical examination at a health care facility RADHA (generalized anxiety disorder) Generalized anxiety disorder Hyperlipidemia, mixed Mixed hyperlipidemia documented in this encounter [facility] note* Diagnosis Hyperlipidemia, mixed- Primary Mixed hyperlipidemia documented in this encounter [facility] note* Diagnosis Primary hypertension- Primary Unspecified essential hypertension RADHA (generalized anxiety disorder) Generalized anxiety disorder Hyperlipidemia, unspecified hyperlipidemia type documented in this encounter [facility] note* Diagnosis Genital herpes Genital herpes, unspecified documented in this encounter [facility] note* Diagnosis Finger laceration, initial encounter- Primary Laceration of right upper extremity, initial encounter documented in this encounter [facility] note* Diagnosis Hypertension, unspecified type- Primary 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) Hyperlipidemia, unspecified hyperlipidemia type documented in this encounter [facility] note* Diagnosis Vitamin D deficiency- Primary Unspecified vitamin D deficiency Right ventricular dysfunction Heart disease, unspecified FAN (obstructive sleep apnea) Obstructive sleep apnea (adult) (pediatric) documented in this encounter [facility] note* Diagnosis Chronic systolic dysfunction of right ventricle- Primary documented in this encounter [facility] for referral (narrative)* Outpatient Procedure (Routine) - Closed Specialty Diagnoses / Procedures Referred By Franci barbosa [facility] Diagnoses Primary hypertension Procedures ECG COMPLETE ECG ROUTINE ECG W/LEAST 12 LDS W/I&R Alfred Isabel APRN.CNP [address] [place] [id number] [facility] [place] [address] [place] [address] Referral ID Status Reason Start Date Expiration Date V isits Requested Visits Authorized [id number] Closed Auto-Generate d Referral 06/18/2022 06/18/2023 1 1 [facility] for visit Narrative* Outpatient Procedure (Routine) - Closed Specialty Diagnoses / Procedures Referred By Franci barbosa Referred To Contact [facility] Diagnoses Cardiomyopathy in diseases classified elsewhere Chest pain, unspecified cardiomyopathy i43 cp r07.9 dr mueller fx Procedures CARDIAC MRI W/WO CONTRAST & FURTHER SEQ MRI WWO CARD 440 José Miguel Menezes MD [address] [place] [address] [facility] [address] [place] [address] Referral ID Status Reason Start Date Expiration Date Visits Re quested Visits Authorized [id number] Closed 08/15/2022 03/11/2023 1 1 [facility] Summary Purpose Family History No Family History [...] DATE CREATED AUTHOR AUTHOR'S ORGANIZ ATION 03/03/2023 [facility] DATE CREATED AUTHOR AUTHOR'S ORGANIZ ATION 05/08/2023 [facility] DATE CREATED AUTHOR AUTHOR'S ORGANIZ ATION 07/09/2023 [facility] Source Comments (unrecognize d section and content) In the event this informatio n is protected by the Federal Confidentiality of Alcohol and Drug Abuse Patient Records regulations: The Federal rules restrict any use of the information to criminally investigate or prosecute any alcohol or drug abuse patient.[facility] the event this information is protected by the Federal Confidentiality of Alcohol and Drug Abuse Patient Records regulations: The Federal rules restrict any use of the information to criminally investigate or prosecute any alcohol or drug abuse patient.[facility] the event this information is protected by the Federal Confidentiality of Alcohol and Drug Abuse Patient Records regulations: The Federal rules restrict any use of the information to criminally investigate or prosecute any alcohol or drug abuse patient.[facility] the event this information is protected by the Federal Confidentiality of Alcohol and Drug Abuse Patient Records regulations: The Federal rules restrict any use of the information to criminally investigate or prosecute any alcohol or drug abuse patient.[facility] the event this information is protected by the Federal Confidentiality of Alcohol and Drug Abuse Patient Records regulations: The Federal rules restrict any use of the information to criminally investigate or prosecute any alcohol or drug abuse patient.[facility] the event this information is protected by the Federal Confidentiality of Alcohol and Drug Abuse Patient Records regulations: The Federal rules restrict any use of the information to criminally investigate or prosecute any alcohol or drug abuse patient.[facility] the event this information is protected by the Federal Confidentiality of Alcohol and Drug Abuse Patient Records regulations: The Federal rules restrict any use of the information to criminally investigate or prosecute any alcohol or drug abuse patient.[facility] the event this information is protected by the Federal Confidentiality of Alcohol and Drug Abuse Patient Records regulations: The Federal rules restrict any use of the information to criminally investigate or prosecute any alcohol or drug abuse patient.[facility] the event this information is protected by the Federal Confidentiality of Alcohol and Drug Abuse Patient Records regulations: The Federal rules restrict any use of the information to criminally investigate or prosecute any alcohol or drug abuse patient.[facility] the event this information is protected by the Federal Confidentiality of Alcohol and Drug Abuse Patient Records regulations: The Federal rules restrict any use of the information to criminally investigate or prosecute any alcohol or drug abuse patient.[facility] the event this information is protected by the Federal Confidentiality of Alcohol and Drug Abuse Patient Records regulations: The Federal rules restrict any use of the information to criminally investigate or prosecute any alcohol or drug abuse patient.[facility] the event this information is protected by the Federal Confidentiality of Alcohol and Drug Abuse Patient Records regulations: The Federal rules restrict any use of the information to criminally investigate or prosecute any alcohol or drug abuse patient.[facility] the event this information is protected by the Federal Confidentiality of Alcohol and Drug Abuse Patient Records regulations: The Federal rules restrict any use of the information to criminally investigate or prosecute any alcohol or drug abuse patient.[facility] the event this information is protected by the Federal Confidentiality of Alcohol and Drug Abuse Patient Records regulations: The Federal rules restrict any use of the information to criminally investigate or prosecute any alcohol or drug abuse patient.[facility] the event this information is protected by the Federal Confidentiality of Alcohol and Drug Abuse Patient Records regulations: The Federal rules restrict any use of the information to criminally investigate or prosecute any alcohol or drug abuse patient.[facility] the event this information is protected by the Federal Confidentiality of Alcohol and Drug Abuse Patient Records regulations: The Federal rules restrict any use of the information to criminally investigate or prosecute any alcohol or drug abuse patient.[facility] Reason for Visit (unrecogniz ed section and [...] to right hand Reason Comments Hypertension Seeing machine iii coremaker today to get put on blood thinners. Discuss getting on blood pressure meds. Right ventricular non compaction. Reason Comments External Referrals/resources Reason Comments New Patient Reason Comments Follow Up Care Teams (unrecognized sec tion and content) Sewer Pipe Layer Helper Relationship Specialty Start Date End Date Alfred Isabel, ROVING MARKER.HEAD OF MAINTENANCE [address] [facility] [place] [address] PCP - General Family Medicine 03/18/22 Sewer Pipe Layer Helper Relationship Specialty Start Date End Date Alfred Isabel, ROVING MARKER.HEAD OF MAINTENANCE [address] [facility] [place] [address] PCP - General Family Medicine 03/18/22 Sewer Pipe Layer Helper Relationship Specialty Start Date End Date Alfred Isabel, ROVING MARKER.HEAD OF MAINTENANCE [address] [facility] [place] [address] PCP - General Family Medicine 03/18/22 Sewer Pipe Layer Helper Relationship Specialty Start Date End Date Alfred Isabel, ROVING MARKER.HEAD OF MAINTENANCE [address] [facility] [place] [address] PCP - General Family Medicine 03/18/22 Sewer Pipe Layer Helper Relationship Specialty Start Date End Date Alfred Isabel, ROVING MARKER.HEAD OF MAINTENANCE [address] [facility] [place] [address] PCP - General Family Medicine 03/18/22 Sewer Pipe Layer Helper Relationship Specialty Start Date End Date Alfred Isabel, ROVING MARKER.HEAD OF MAINTENANCE [address] [facility] [place] [address] PCP - General Family Medicine 03/18/22 Sewer Pipe Layer Helper Relationship Specialty Start Date End Date Alfred Isabel, ROVING MARKER.HEAD OF MAINTENANCE [address] [facility] [place] [address] PCP - General Family Medicine 03/18/22 Sewer Pipe Layer Helper Relationship Specialty Start Date End Date Alfred Isabel, ROVING MARKER.HEAD OF MAINTENANCE [address] [place] [address] PCP - General Family Medicine 03/18/22 Sewer Pipe Layer Helper Relationship Specialty Start Date End Date Alfred Isabel APRN.HEAD OF MAINTENANCE [address] [place] [address] PCP - General Family Medicine 03/18/22 Sewer Pipe Layer Helper Relationship Specialty Start Date End Date Alfred Isabel ROVING MARKER.HEAD OF MAINTENANCE [address] [place] [address] PCP - General Family Medicine 03/18/22 Sewer Pipe Layer Helper Relationship Specialty Start Date End Date Alfred Isabel APRN.HEAD OF MAINTENANCE [address] [place] [address] PCP - General Family Medicine 03/18/22 Sewer Pipe Layer Helper Relationship Specialty Start Date End Date Alfred Isabel ROVING MARKER.HEAD OF MAINTENANCE [address] [place] [address] PCP - General Family Medicine 03/18/22 Sewer Pipe Layer Helper Relationship Specialty Start Date End Date Alfred Isabel ROVING MARKER.HEAD OF MAINTENANCE [address] [place] [address] PCP - General Family Medicine 03/18/22 Sewer Pipe Layer Helper Relationship Specialty Start Date End Date Alfred Isabel ROVING MARKER.HEAD OF MAINTENANCE [address] [place] [address] PCP - General Family Medicine 03/18/22 Scheduled [...] BE BASED ON THE PRIMARY CLINICAL RECORDS. [facility]. provides no warranty or guarantee of the accuracy or completeness of information in this document.
[2023-07-09 21:00] LABS: ALB/GLOB Ratio 1.2 RATIO (0.9-2.4); AST(SGOT) 24 U/L (15-37); Alanine Aminotransfer ALT/SGPT 56 U/L (16-61); Albumin, Serum 4.4 g/dL (3.2-5.0); Alkaline Phosphatase 49 U/L (45-117); Anion Gap 11 (5-15); BUN 14 mg/dL (7-18); BUN/Creat Ratio 13.2 RATIO (10-20); Calcium,Total 9.2 mg/dL (8.5-10.1); Chloride 111 mmol/L (98-107); Creatinine, Serum 1.06 mg/dL (0.70-1.30); EST Glomerular Filtration Rate 85 mL/min (>60); Est Glom Filt Rate - Afr Amer 103 mL/min (>60); Estimated Creatinine Clearance 108.79 ml/min; Globulin 3.7 g/dL (2.2-4.2); Glucose 100 mg/dL (74-106); Potassium 3.4 mmol/L (3.5-5.1); Protein, Total 8.1 g/dL (6.4-8.2); Sodium Level 143 mmol/L (136-145)
[2023-07-09] MEDS: Ondansetron 4 MG/2 ML Vial IV (21:04)
--- NOTE | 2023-07-09 21:16 | ED.RN ---
spoke with brother Tj to inform pt is at [facility].
[2023-07-09 21:38] VITALS: BP 136/92; PULSE 100; RESP 16; O2SAT 95
[2023-07-10] VITALS (8 sets, daily range): BP systolic 111–159; BP diastolic 73–103; PULSE 68–97; RESP 16–18; TEMP 36.6–36.9; O2SAT 96–100
[2023-07-10 03:57] LABS: Amphetamine Urine VISTA NEGATIVE (<1000 ng/mL); Barbiturate Urine VISTA NEGATIVE (< 200 ng/mL); Benzodiazepine Urine VISTA NEGATIVE (< 200 ng/mL); Cocaine Urine VISTA NEGATIVE (< 300 ng/mL); Ecstacy Urine VISTA NEGATIVE (< 500 ng/mL); Methadone Urine VISTA NEGATIVE (< 300 ng/mL); PCP Urine VISTA NEGATIVE (< 25 ng/mL); THC Urine VISTA NEGATIVE (< 50 ng/mL); Vista UDS pH Range 5
[2023-07-10] MEDS: Ketorolac 30 MG/ML Syringe IV (04:28)
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
--- NOTE | 2023-07-10 14:52 | CM.ED ---
Social Work Patient referred and accepted to [facility]. Going to room 3306, accepted by Dr. Grace. Nurse to nurse number [phone], requesting an ETA. Jane Jolley MSW, ROASTER HELPER
--- NOTE | 2023-07-10 15:26 | ED.RN ---
Report called to NENO Nash at [facility].
--- NOTE | 2023-07-10 17:36 | ED.RN ---
PHYSICIANS WAS SUPPOSED TO DOCK OPERATOR THE PATIENT BETWEEN 2-2/12 HOURS. I JUST CALLED TO GET ANOTHER ETA AND THEY SAID 30 MIN.
== END 2023-07-10 18:27 ==
PROVIDERS: Emergency Medicine; Emergency Provider Student in an Organized Health Care Education/Training Program; PCP Nurse Practitioner Family; Visit Provider Student in an Organized Health Care Education/Training Program
DX: T14.91XA Suicide attempt, initial encounter (principal); F10.129 Alcohol abuse with intoxication, unspecified; Y90.8 Blood alcohol level of 240 mg/100 ml or more; F32.A Depression, unspecified; I10 Essential (primary) hypertension; Z63.0 Problems in relationship with spouse or partner; Z56.89 Other problems related to employment; Z79.899 Other long term (current) drug therapy
CPT/HCPCS: 80053; 80307; 80320; 85025; 87811; 96372; 96374; 96375; 99285; A4216; G0480; J2405; J3486

== ENCOUNTER 2024-05-28 15:23 | Emergency (ER) | payer OTHER, SELFPAY ==
[2024-05-28 15:23] VITALS: BP 149/104; PULSE 81; RESP 19; TEMP 36.4; O2SAT 100; BMI 25.2
--- NOTE | 2024-05-28 15:27 | EKG12_ITS ---
Test Reason : CP Blood Pressure : */* mmHG Vent. Rate : 88 BPM Atrial Rate : 88 BPM P-R Int : 158 ms QRS Dur : 100 ms QT Int : 368 ms P-R-T Axes : 53 7 32 degrees QTcB Int : 445 ms Normal sinus rhythm Normal ECG Confirmed by Landry Zambrano ([id number]), online content editor ASHLEY ZUNIGA ([id number]) on 05/31/2024 10:25:05 AM Referred By: Confirmed By: Landry Zambrano
--- NOTE | 2024-05-28 15:30 | RAD_ITS ---
EXAM: XR CHEST, 1 VIEW CLINICAL INDICATION: chest pain TECHNIQUE: Frontal view of the chest. COMPARISON: 07/04/2023 FINDINGS: LUNGS AND PLEURAL SPACES: Unremarkable. No consolidation or edema. No pneumothorax. No effusion. HEART: Unremarkable. Cardiac silhouette not enlarged. MEDIASTINUM: Central airways and mediastinal contour are unremarkable. BONES/JOINTS: Unremarkable. No acute fracture. SOFT TISSUES: Unremarkable. RAD/Chest 1 View (Portable) IMPRESSION: No radiographic evidence of acute cardiopulmonary disease. Electronically Signed: Joey Guzman MD at 16:15 EST ,
--- NOTE | 2024-05-28 15:35 | ED.VIS.CHEST ---
HPI History of Present Illness Chief Complaint: Chest Pain Informant: patient Onset/Context/Timing Onset: Today and Hours Activity at onset: gradual Timing: Continuous Quality: Positive for Dull Location: Left Chest Current Severity: Mild Maximum Severity: Mild Worsened By: Nothing Relieved By: Nothing Associated Symptoms: Negative for Nausea, Vomiting, Diaphoresis, Dyspnea, Cough, Fever, Lightheadedness, Acid Reflux or Palpitations Narrative Narrative: 34-year-old male history of cardiomyopathy diagnosed about a year ago [facility] with a cardiac MRI showing an EF on the right side of his heart is around 27% and the left side at about 65%. He said he feels this all the time normally has no issues. Today just that he felt like it was more prominent. Denies shortness of breath. Denies leg swelling. Denies hemoptysis. Scented feels like a dull ache left side of his chest. No radiation. Nothing particular makes it better or worse. He follows up with the [facility] clinic annually to have this rechecked. There is no history of aneurysms or blood clots. Prior Similar Symptoms: Yes Recent Illness/Hospitalization: No CVD Risk Factors: Negative for Diabetes, Hypercholesterolemia, Family History 1' </=55 or Smoking PE Risk Factors: Negative for Recent Travel/Surgery, Recent Immobilization, Prior DVT or PE, Cancer or OCP + Smoking + >/=35 TAD Risk Factors: Negative for Marfan's Syndrome [facility] Medical History Tourette's disorder ADD (attention deficit disorder) without hyperactivity Elevated blood pressure reading with diagnosis of hypertension Chest pain Right ventricular myocardial noncompaction cardiomyopathy Hypertension Anxiety Chest pain Essential (primary) hypertension Hyperlipidemia 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 Myopia Genital herpes Home Medications ?Medication ?Instructions ?Recorded ?Last Taken ?Type buspirone 5 mg tablet 5 mg PO TID 07/07/23 Unknown History valacyclovir 1 gram tablet 1,000 mg PO DAILY 07/07/23 Unknown History carvedilol 3.125 mg tablet 3.125 mg PO BID #180 TABLETS 12/21/23 Unknown Rx Allergy/AdvReac Type Severity Reaction Status Date / Time No Known Allergies Allergy Verified 07/09/23 20:16 Family History Father Diabetes Hypertension Hyperlipidemia Heart failure Grandfather Diabetes Grandmother Hypertension Grandmother CVA (cerebral vascular accident) Social History Smoking Status: Never smoker alcohol intake: current alcohol intake frequency: 0-2 drinks per day Alcohol type: beer substance use type: does not use caffeine: No ROS ROS ED ROS Narrative Denies recent illness. Constitutional Constitutional ED: Denies chills, fever(s) or subjective Eyes Eyes: Reports none ENT ENT ED: Denies ear pain Cardiovascular Cardiovascular: Reports as per HPI and chest pain; Denies palpitations or racing heartbeat Respiratory/Chest Respiratory/Chest: Denies cough, dyspnea or dyspnea on exertion Gastrointestinal Gastrointestinal: Denies abdominal pain Genitourinary Genitourinary ED: Denies dysuria Musculoskeletal Musculoskeletal: Denies arthralgias Integumentary Denies abscess Neurologic Neurologic: Denies headache(s) Psychiatric Psychiatric: Denies anxiety or depression Endocrine Endocrinology: Denies cold intolerance Hematologic/Lymphatic Hematologic/Lymphatic: Denies easy bleeding Allergic/Immunologic Allergic/Immunologic ED: Denies mouth swelling EXAM Physical Exam Narrative Exam Narrative: Well-appearing 34-year-old male. Vital signs stable afebrile. Pulse ox 100% on room air no signs hypoxia. No distress. H EENT exam unremarkable. Neck nontender no JVD. Lungs clear to auscultation bilaterally. Heart regular rate and rhythm rate about 80 no murmur. Chest wall ribs nontender. Abdomen soft nontender. Moving all 4 extremities. Equal symmetrical radial pulses. Normal propeller engineer strength. Normal dorsi plantarflexion. Calves are nontender without edema or cords. Back nontender. He is awake and alert no focal motor deficits. Benign exam. Const Vital Signs: 05/28/24 15:23 05/28/24 15:30 05/28/24 16:23 Temperature 97.6 F L Temperature Source Oral Pulse Rate 81 77 Respiratory Rate 19 H 18 Blood Pressure 149/104 H 129/98 H Blood Pressure Mean 119 108 Pulse Ox 100 98 Oxygen Delivery Method Room Air Room Air Positive well nourished and well developed; Negative for obese, cachectic, contractures or unkempt General Appearance ED: well developed and NAD; Negative for unkempt, cachectic, contractures or pallor Nutritional Appearance: Negative for cachectic or obese HEENT Reports moist mucous membranes normocephalic and atraumatic; Negative for trauma or tenderness Eyes PERRL and EOMs intact bilaterally General Eye ED: Negative for pale conjunctiva or scleral icterus Neck no lymphadenopathy, supple and no JVD General: Negative for tenderness Chest Wall inspection of chest normal and palpation of chest normal Resp normal respiratory effort and clear to auscultation bilaterally Cardio regular rate, regular rhythm, S1 normal heart sound, S2 normal heart sound and no murmurs Peripheral Pulses: pulses 2+ throughout GI normal to inspection, nondistended, normoactive bowel sounds, soft to palpation, non-tender, non-distended and no masses Back/Spine no CVA tenderness and no thoracic nor lumbar tenderness General Back: Negative for CVA tenderness Cervical Spine: Negative for cervical spine tenderness Extremity normal to inspection General Extremety ED: Negative for edema, pulses abnormal or tenderness General Extremity: Negative for edema or pulses abnormal Neuro oriented x3 and CN's II-XII intact bilaterally Sensorium / Orientation: awake, alert, oriented to person, oriented to place and oriented to time; Negative for confused, lethargic or stuporous Motor Exam: strength 5/5 throughout Psych mental status grossly normal Appearance: Negative for unkempt Mood & Affect: Negative for depressed or tearful Skin no rashes or lesions noted and no wounds General Skin Exam: Negative for jaundice or pallor Rashes: No rashes noted Trauma: Negative for abrasion or laceration Heart Score History: Slightly/Non-Suspicious ECG: Normal Age: </= 45 years Risk Factors: No Risk Factors Troponin: </= Normal Limit Score: 0 MDM MDM MDM Narrative Medical decision making narrative: 34-year-old male history of cardiomyopathy with EF on the right side of his heart of 27%. Having similar chest discomfort that he always has just felt like it was more prominent starting around 9 AM this morning which was about 6-1/2 hours ago. Exam benign. Patient will undergo cardiac workup. Repeat exam at 4:49 PM patient doing well. Exam unchanged. Went over his test results. Will be discharged home with outpatient follow-up as needed. History & Record Review Discussion w/independent historian: Patient Additional record(s) reviewed:: Prior inpatient record, Prior outpatient record, Prior ED visit and Prior labs Lab Data Attestation: I reviewed the patient's lab results. Lab results narrative: CBC unremarkable. White count of 6. H&H 17 and 48. Platelets 285. Electrolytes show gap 4. Normal BUN of 18 creatinine 0.9. Glucose 103. Troponin 5. Labs: Laboratory Results - last 24 hr 05/28/24 15:28 WBC 6.5 RBC 5.41 Hgb 17.3 H Hct 48.4 MCV 89.5 MCH 32.0 MCHC 35.7 RDW Std Deviation 37.2 RDW Coeff of Barbara 11.6 Plt Count 285 MPV 9.7 Immature Gran % (Auto) 0.300 Neut % (Auto) 51.1 Lymph % (Auto) 37.8 [place] % (Auto) 7.2 Eos % (Auto) 2.5 Baso % (Auto) 1.1 H Absolute Neuts (auto) 3.3 Absolute Lymphs (auto) 2.45 Nucleated RBC % 0 Sodium 140 Potassium 3.6 Chloride 106 Carbon Dioxide 30.0 Anion Gap 4 L BUN 18 Creatinine 0.98 Estim Creat Clear Calc 116.58 Est GFR (MDRD) Af Amer 112 Est GFR (MDRD) Non-Af 93 BUN/Creatinine Ratio 18.3 Glucose 103 Calcium 9.4 Troponin I High Sens 5 Radiography Chest X-Ray - ED: 1 View, Read by ED Physician, Read by Radiologist, Normal, Heart, Lungs, Mediastinum, Bony Structures and No Acute Disease Diagnostic Testing: Clinical Impression(s) from Imaging Studies Chest X-Ray 05/28/24 15:30 IMPRESSION: No radiographic evidence of acute cardiopulmonary disease. Electronically Signed: Joey Guzman MD at 16:15 EST , Chest x-ray, portable, single view, interpreted by myself and radiologist shows no acute abnormality. Normal cardiac silhouette. Normal lung alex. No effusions. No infiltrates. Heart not enlarged. Rhythm Strip Rhythm Strip: Sinus Rhythm Rate: 88 Ectopy: None EKG Initial EKG: Attestation: I personally reviewed and interpreted this EKG as follows: Interpretation: Sinus Rhythm and No Acute Injury Pattern Comments: Normal sinus rhythm rate 88 no acute signs of TN or ischemia. No significant change from prior EKG. Discharge Plan Triage Chief Complaint: Chest Pain ED Provider: Viraj Mcguire Dx/Rx/DC Orders Clinical Impression: Chest pain, Right ventricular myocardial noncompaction cardiomyopathy, History of cardiomyopathy Instructions: ED Chest Pain, Uncertain Cause Prescriptions: No Action buspirone 5 mg tablet 5 mg PO TID valacyclovir 1 gram tablet 1,000 mg PO DAILY Patient Comments: TAKE 1 TABLET BY MOUTH EVERY DAY carvedilol 3.125 mg tablet 3.125 mg PO BID Qty: 180 2RF [facility] Care Provider[facility] Referrals: Angely Estrada NP, ASE CERTIFIED TECHNICIAN-C [Non-Staff] - As Needed Activity Restrictions/Additional Instructions: Follow-up with your [facility] truck sales manager as needed. All your tests, x-ray and EKG today look good. Print Language: Chinese Disposition Disposition: Home, Self Care
[2024-05-28 15:45] LABS: Absolute Lymphocyte Count 2.45 X10^3/uL (0.83-4.51); Absolute Neutrophil Count 3.3 X10^3/uL (2.0-7.7); Basophil# 0.07 X10^3/uL; Basophil% 1.1 % (0-1); Eosinophil# 0.16 X10^3/uL; Eosinophils% 2.5 % (0-5); Hematocrit 48.4 % (40-54); Hemoglobin 17.3 g/dL (13.0-16.5); Lymphocyte # 2.45 X10^3/ul (0.83-4.51); Lymphocyte % 37.8 % (19-41); Mean Corp Hgb Conc 35.7 g/dL (32-36); Mean Corpuscular Volume 89.5 fL (80-94); Mean Platelet Vol. 9.7 fl (6.2-12.0); Monocyte# 0.47 X10^3/uL; Monocyte% 7.2 % (0-10); NRBC Flagged by Analyzer 0 % (0-5); Neutrophil # 3.32 X10^3/uL (2.7-7.7); Neutrophil % 51.1 % (47-70); Platelet Count 285 K/mm3 (150-450); RBC Distribution Width CV 11.6 % (11.6-14.6); RBC Distribution Width SD 37.2 fl (35.1-43.9); Red Blood Count 5.41 M/mm3 (4.6-6.2); White Blood Count 6.5 K/mm3 (4.4-11.0)
[2024-05-28 15:58] LABS: Anion Gap 4 (5-15); BUN 18 mg/dL (7-18); BUN/Creat Ratio 18.3 RATIO (10-20); Calcium,Total 9.4 mg/dL (8.5-10.1); Chloride 106 mmol/L (98-107); Creatinine, Serum 0.98 mg/dL (0.70-1.30); EST Glomerular Filtration Rate 93 mL/min (>60); Est Glom Filt Rate - Afr Amer 112 mL/min (>60); Estimated Creatinine Clearance 116.58 ml/min; Glucose 103 mg/dL (74-106); Potassium 3.6 mmol/L (3.5-5.1); Sodium Level 140 mmol/L (136-145); Troponin-I HS 5 pg/mL (3.0-78.0)
[2024-05-28 16:23] VITALS: BP 129/98; PULSE 77; RESP 18; O2SAT 98
[2024-05-28 16:53] VITALS: BP 127/96; PULSE 76; RESP 14; TEMP 36.6; O2SAT 97
== END 2024-05-28 17:01 | disposition home or self-care (01) ==
PROVIDERS: Emergency Provider Emergency Medicine; Visit Provider Emergency Medicine
DX: R07.89 Other chest pain (principal); I42.8 Other cardiomyopathies; I10 Essential (primary) hypertension; Z79.899 Other long term (current) drug therapy
CPT/HCPCS: 71045; 80048; 84484; 85025; 93005; 99284; A4216

== ENCOUNTER → 2025-02-09 | Outpatient (CLI) | payer OTHER, SELFPAY ==
[2025-02-09 12:19] LABS: AST(SGOT) 22 U/L (<=37); Alanine Aminotransfer ALT/SGPT 42 U/L (<=46); Albumin, Serum 4.8 g/dL (3.5-5.0); Alkaline Phosphatase 45 U/L (40-129); Anion Gap 12 (5-15); BUN 24 mg/dL (4-19); BUN/Creat Ratio 21.4 RATIO (10-20); Calcium,Total 9.7 mg/dL (7.6-11.0); Carbon Dioxide 24.4 mmol/L (21.0-32.0); Chloride 103 mmol/L (98-108); Cholesterol 219 mg/dL (<=200); Globulin 3.0 g/dL (2.2-4.2); Glucose 101 mg/dL (70-99); Low Density Lipoprotein Calc. 152 mg/dL; Potassium 4.5 mmol/L (3.3-5.1); Triglycerides 102 mg/dL; Very Low Density Lipoprotein 20 mg/dL (5-40); cholesterol:hdl ratio screen 4.73
== END | disposition home or self-care (01) ==
PROVIDERS: Referring Provider Internal Medicine Cardiovascular Disease; Visit Provider Internal Medicine Cardiovascular Disease
DX: I10 Essential (primary) hypertension (principal); E78.5 Hyperlipidemia, unspecified; R07.9 Chest pain, unspecified
CPT/HCPCS: 36415; 80053; 80061; 84443

== ENCOUNTER → 2025-03-24 | Outpatient (CLI) | payer OTHER, SELFPAY ==
--- NOTE | 2025-03-24 12:36 | ECHOCS_ITS ---
Reason For Study Reason For Study: RV Noncompation Procedure This was a 2D Doppler, Color Flow transthoracic echocardiogram. Myocardial strain analysis was performed in this exam to aid in the assessment of cardiac function. The study was technically difficult. Contrast injection was performed. Exam performed in department. Left Ventricle Normal size and thickness. The LV ejection fraction is 65 %. No evidence for diastolic dysfunction. Right Ventricle Normal RV size and systolic function. Prominent moderator band. Possible apical noncompaction. Atria The left and right atria are normal. Mitral Valve The mitral valve is structurally normal. No prolapse or stenosis seen. Tricuspid Valve Trivial tricuspid valve insufficiency. Unable to estimate RV systolic pressure due to insufficient tricuspid regurgitant envelope. Aortic Valve Trisinus/trileaflet aortic valve. Pulmonic Valve The pulmonic valve is not well visualized. Great Vessels Normal sized aortic root. Pericardium/Pleural No pericardial effusion. Medication 22 gauge I.V. with prn adaptor inserted into right arm. Diluted definity 2ml given slow IV push to enhance endocardial definition. MMode/2D Measurements & Calculations LVIDd: 4.6 cm IVSd: 0.96 cm LVOT diam: 2.0 cm LVIDs: 2.8 cm LVPWd: 0.98 cm RVDd: 3.8 cm FS: 39.7 % LVOT area: 3.0 cm2 Ao root diam: 3.0 cm LAV(MOD-bp): 23.6 ml LVAd ap4: 37.3 cm2 LAV(MOD-bp) Indexed: 11.6 ml/m2 LVLd ap4: 8.3 cm LAV(MOD-sp2): 23.9 ml EDV(MOD-sp4): 133.7 ml LAV(MOD-sp4): 22.2 ml EDV(sp4-el): 141.5 ml LVAs ap4: 22.2 cm2 LVLs ap4: 6.6 cm ESV(MOD-sp4): 60.7 ml ESV(sp4-el): 63.1 ml EF(MOD-sp4): 54.6 % EF(sp4-el): 55.4 % SV(MOD-sp4): 73.0 ml SV(sp4-el): 78.4 ml LA A4 area: 10.8 cm2 SI(MOD-sp4): 35.8 ml/m2 LA dimension(2D): 3.1 cm RA A4 area: 11.0 cm2 Time Measurements MV dec time: 0.18 sec Doppler Measurements & Calculations MV E max guevara: 60.9 cm/sec Lat Peak E' Guevara: 11.8 cm/sec Med Peak E' Guevara: 6.8 cm/sec MV A max guevara: 63.7 cm/sec E/E' lat: 5.2 E/E' med: 9.0 MV E/A: 0.96 MV V2 max: 73.5 cm/sec MV dec slope: 353.3 cm/sec2 Ao V2 max: 104.8 cm/sec MV max P.2 mmHg Ao max P.4 mmHg MV V2 mean: 52.4 cm/sec Ao V2 mean: 70.7 cm/sec MV mean P.2 mmHg Ao mean P.3 mmHg MV V2 VTI: 25.3 cm Ao V2 VTI: 21.4 cm MVA(VTI): 2.2 cm2 AV (velocity ratio): 0.87 ANJANA(I,D): 2.6 cm2 ANJANA(V,D): 2.9 cm2 LV V1 max: 99.5 cm/sec SV(LVOT): 56.2 ml PA V2 max: 100.4 cm/sec LV V1 max P.0 mmHg PA V2 mean: 66.8 cm/sec LV V1 mean P.0 mmHg LV V1 mean: 65.7 cm/sec LV V1 VTI: 18.6 cm ECHO/Echo Complete W/ Contrast Interpretation Summary The LV ejection fraction is 65 %. No evidence for diastolic dysfunction. Normal RV size and systolic function. Prominent moderator band. Possible apical noncompaction. Ordering Physician: Jessy Winters Referring Physician: Jessy Winters Performed By: Selina Stephens RCS
== END | disposition home or self-care (01) ==
PROVIDERS: Referring Provider Nurse Practitioner Gerontology; Visit Provider Nurse Practitioner Gerontology
DX: I42.8 Other cardiomyopathies (principal)
CPT/HCPCS: 93306; Q9957; A4216; C8929